=== PATIENT | male | born 1990 | race Caucasian/White ===

== ENCOUNTER 2018-08-14 21:51 | Emergency (ER) | payer MEDICARE, MEDICAID, SELFPAY ==
[2018-08-14 21:51] VITALS: BP 135/81; PULSE 86; RESP 16; TEMP 36.4; O2SAT 98; BMI 35.2
--- NOTE | 2018-08-14 21:54 | RAD_ITS ---
STUDY: X-RAY - RIGHT HAND REASON FOR EXAM: Male, 28 years old. Wrist and fifth digit pain after acute injury. TECHNIQUE: 3 view(s) of the hand. COMPARISON: None. FINDINGS: Normal radiocarpal articulation. Normal distal radioulnar joint. Normal visualized carpal bones. Normal carpal articulations Normal carpometacarpal articulation of the thumb. Normal second through fifth carpometacarpal joints. Normal metacarpi. Normal metacarpophalangeal joint of the thumb. Normal interphalangeal joint of the thumb. Normal proximal and distal phalanges of the thumb. Normal metacarpophalangeal joints of the second through fifth fingers. Normal proximal and distal interphalangeal joints of the second through fifth fingers. Normal phalanges of the second through fifth fingers. The soft tissue structures are unremarkable. RAD/Hand Min 3 Views IMPRESSION: Normal x-ray examination of the hand. Electronically Signed: Preethi Rebolledo MD at 22:15 EDT , Service support ,
--- NOTE | 2018-08-14 22:46 | ED.DEP ---
ED Disposition - Plan for ED Patient: Instructions: ED Contusion Hand Prescriptions: Naproxen [Naprosyn] 500 mg PO BID PRN #20 tablet Referrals: Mumtaz Rubalcava MD [Primary Care Provider] -
--- NOTE | 2018-08-14 22:49 | ED.VISSUMM ---
- ER Visit Summary Date of Service: 08/14/18 Chief Complaint: Right hand injury History of Present Illness: The patient is a 28 M presenting with right hand injury. Patient states this occurred on Saturday. He was playing with his son doing somersaults. He landed on his right hand. He has had persistent pain in his hand since. Tonight at work he lifted something heavy and felt a pop in his hand. He is right-handed. Denies other complaints. Physical Examination: Vitals are stable. Patient is afebrile. Alert no acute distress. HEENT exam is unremarkable. Neck is supple. Lungs are clear and equal bilaterally. Heart is regular rate and rhythm. Extremities tenderness right fourth and fifth metacarpal with ecchymosis and mild swelling. Normal pulses and cap refill. Active full range of motion. Skin is warm and dry. No focal neurologic deficit. Remainder of exam is unremarkable. Emergency Department Course and Treatment: Right hand x-ray shows no acute process. He was given a Velcro wrist splint. Advised ice and elevate. Advised to use NSAIDs for pain. Advised to follow up with primary care physician. Advised return to ED for worsening complaints. Disposition: Discharge home Impression: Right hand contusion This note was generated with [employer] dictation software. It may contain incorrect words, spelling, and punctuation that were not noted in review of the chart prior to signing ED Disposition - Plan for ED Patient: Instructions: ED Contusion Hand Prescriptions: Naproxen [Naprosyn] 500 mg PO BID PRN #20 tablet Referrals: Mumtaz Rubalcava MD [Primary Care Provider] -
[2018-08-14 23:18] VITALS: BP 141/76; PULSE 82; RESP 14; O2SAT 99
== END 2018-08-14 23:19 | disposition home or self-care (01) ==
PROVIDERS: Emergency Provider Emergency Medicine; Family Provider Family Medicine; PCP Family Medicine
DX: S60.221A Contusion of right hand, initial encounter (principal); X58.XXXA Exposure to other specified factors, initial encounter; Y93.43 Activity, gymnastics; Y92.9 Unspecified place or not applicable; Y99.9 Unspecified external cause status; Z72.0 Tobacco use; Z79.899 Other long term (current) drug therapy
CPT/HCPCS: 73130; 99283

== ENCOUNTER 2021-11-12 23:35 | Emergency (ER) | payer MEDICARE, MEDICAID, SELFPAY ==
[2021-11-12 23:36] VITALS: BP 146/93; PULSE 88; RESP 16; TEMP 36.4; O2SAT 94; BMI 38.8
[2021-11-13] MEDS: Dicyclomine 10 MG Capsule 20 MG PO (00:17)
[2021-11-13 00:31] LABS: Absolute Lymphocyte Count 3.24 X10^3/uL (0.83-4.51); Absolute Neutrophil Count 3.7 X10^3/uL (2.0-7.7); Basophil# 0.04 X10^3/uL; Basophil% 0.5 % (0-1); Eosinophil# 0.19 X10^3/uL; Eosinophils% 2.5 % (0-5); Hematocrit 45.7 % (40-54); Hemoglobin 16.2 g/dL (13.0-16.5); Lymphocyte # 3.24 X10^3/ul (0.83-4.51); Lymphocyte % 41.9 % (19-41); Mean Corp Hgb Conc 35.4 g/dL (32-36); Mean Corpuscular Hgb 30.5 pg (27.0-32.0); Mean Corpuscular Volume 85.9 fL (80-94); Mean Platelet Vol. 11.5 fl (6.2-12.0); Monocyte# 0.53 X10^3/uL; Monocyte% 6.8 % (0-10); NRBC Flagged by Analyzer 0 % (0-5); Neutrophil # 3.71 X10^3/uL (2.7-7.7); Neutrophil % 47.9 % (47-70); Platelet Count 218 K/mm3 (150-450); RBC Distribution Width CV 12.8 % (11.6-14.6); RBC Distribution Width SD 39.7 fl (35.1-43.9); Red Blood Count 5.32 M/mm3 (4.6-6.2); White Blood Count 7.7 K/mm3 (4.4-11.0)
--- NOTE | 2021-11-13 01:00 | ED.VIS.GI ---
HPI HPI - GI History of Present Illness Chief Complaint: GI Bleed Informant: patient Abdominal Pain/Flank Pain Onset: - (Years) Timing: Intermittent Quality: Aching and Sharp Location: - (Suprapubic) Current Severity: Mild Maximum Severity: Severe Worsened by: - (Just before bowel movement) Relieved by: - (After bowel movement) Diarrhea/Melena/Hematochezia GI Symptom: Positive for Diarrhea and Hematochezia; Negative for Melena Associated Symptoms Associated Symptoms: Negative for Dysuria, Frequency, Hematuria or Urgency Narrative Narrative: Patient states for several years he has been having diarrhea, intermittent rectal bleeding, suprapubic abdominal pain, and perianal/rectal pain. It has been worse for the past 2 weeks. He really has not seen anybody for it, but he has colonoscopy set up by a general surgeon in [place] but it will not happen soon and he presents here for that reason. He denies any new symptoms except for feeling a little lightheaded and malaise recently. No fevers, chills, nausea, vomiting. No history of abdominal surgery. Never had a scope before. He does not have any problems eating. [facility] Medical History GI bleed Myocardial infarct Home Medications albuterol sulfate 90 mcg/actuation aerosol inhaler (Ventolin HFA) 1 - 2 puff inhalation Q4H PRN PRN Wheezing ##1 04/16/16 [Rx Last Taken Unknown] alprazolam 0.5 mg tablet 0.5 mg PO QHS PRN PRN Anxiety 04/16/16 [History Last Taken Unknown] benzonatate 100 mg capsule 200 mg PO TID PRN PRN Cough ##20 04/16/16 [Rx Last Taken Unknown] prednisone 10 mg tablet 10 mg PO UD #33 tabs 04/16/16 [Rx Last Taken Unknown] venlafaxine 37.5 mg capsule,extended release 24 hr (Effexor XR) 37.5 mg PO DAILY 04/16/16 [History Last Taken Unknown] naproxen 500 mg tablet 500 mg PO BID PRN #20 tabs 08/14/18 [Rx Last Taken Unknown] dicyclomine 10 mg capsule 20 mg PO Q6H PRN PRN abdominal discomfort #30 CAPSULES 11/13/21 [Rx Last Taken Unknown] hydrocortisone 2.5 % topical cream with perineal applicator (Proctosol HC) 1 applic [place] QHS PRN hemorrhoids #30 grams 11/13/21 [Rx Last Taken Unknown] Allergy/AdvReac Type Severity Reaction Status Date / Time Penicillins Allergy Anaphylaxis Verified 11/12/21 23:39 Social History Smoking Status: Current every day smoker tobacco type: cigarettes ROS ROS ED Constitutional Constitutional ED: Denies chills or fever(s) Eyes Eyes: Denies change in vision or diplopia ENT ENT ED: Denies rhinorrhea or sore throat Cardiovascular Cardiovascular: Denies chest pain or palpitations Respiratory/Chest Respiratory/Chest: Denies cough or dyspnea Gastrointestinal Gastrointestinal: Reports abdominal pain, diarrhea, hematochezia, tenesmus and other Details: Rectal/anal pain ; Denies hematemesis, melena, nausea or vomiting Genitourinary Genitourinary ED: Denies dysuria or hematuria Musculoskeletal Musculoskeletal: Denies back pain or neck pain Integumentary Denies abscess or rash Neurologic Neurologic: Denies headache(s), paresthesias or weakness Psychiatric Psychiatric: Denies anxiety or suicidal thoughts EXAM Physical Exam Const Vital Signs: 11/12/21 23:36 Temperature 97.5 F L Temperature Source Temporal Pulse Rate 88 Respiratory Rate 16 Blood Pressure 146/93 H Blood Pressure Mean 110 Pulse Ox 94 Oxygen Delivery Method Room Air Positive well nourished and well developed General Appearance ED: well developed and NAD HEENT Reports moist mucous membranes normocephalic and atraumatic Eyes PERRL and EOMs intact bilaterally Neck full ROM and supple Resp normal respiratory effort and clear to auscultation bilaterally Cardio regular rate, regular rhythm and no murmurs GI non-tender and non-distended GI Narrative: Rectal: Mild diffuse tenderness, no active bleeding or blood present, no fullness or abscess, several small external hemorrhoids without prolapse or thrombosis or evidence of recent bleeding. No perianal erythema, no fissure, no fistula, no other visible abnormality. Auscultation: normoactive bowel sounds Palpation: soft Back/Spine no CVA tenderness General Back: other FROM Extremity normal to inspection General Extremety ED: Negative for edema, pulses abnormal or tenderness General Extremity: Negative for edema or pulses abnormal Neuro oriented x3, CN's II-XII intact bilaterally and no sensory deficits noted Sensorium / Orientation: awake and alert Motor Exam: strength 5/5 throughout Skin no rashes or lesions noted and no wounds MDM MDM MDM Narrative Medical decision making narrative: Labs are normal including hemoglobin of 16.2. I gave him dicyclomine, I discussed the need for colonoscopy and I do not think he needs any emergent imaging. I do not think he has a perianal or perirectal abscess. These symptoms including the pain there has been going on for years, sometimes he describes either a prolapsed or thrombosed hemorrhoid that has gone away but he does not have that right now. I am going to give him hemorrhoid cream to treat internal ones until he can follow-up as well as a prescription for dicyclomine, I discussed why I would not put him on prednisone right now until he gets a colonoscopy and I referred him to our de icer kit assembler. He is comfortable with that plan. Lab Data Attestation: I reviewed the patient's lab results. Labs: Laboratory Results - last 24 hr 11/13/21 00:10 WBC 7.7 RBC 5.32 Hgb 16.2 Hct 45.7 MCV 85.9 MCH 30.5 MCHC 35.4 RDW Std Deviation 39.7 RDW Coeff of Kylie 12.8 Plt Count 218 MPV 11.5 Immature Gran % (Auto) 0.400 Neut % (Auto) 47.9 Lymph % (Auto) 41.9 H [place] % (Auto) 6.8 Eos % (Auto) 2.5 Baso % (Auto) 0.5 Absolute Neuts (auto) 3.7 Absolute Lymphs (auto) 3.24 Nucleated RBC % 0 Discharge Plan Triage Chief Complaint: GI Bleed ED Provider: Wilfrid Erazo Dx/Rx/DC Orders Clinical Impression: Colitis, Lightheadedness, Hemorrhoids Instructions: ED Understanding Colitis Prescriptions: New hydrocortisone [Proctosol HC] 2.5 % cream with perineal applicator 1 applic MT QHS PRN (Reason: hemorrhoids) Qty: 30 0RF dicyclomine 10 mg capsule 20 mg PO Q6H PRN PRN (Reason: abdominal discomfort) Qty: 30 0RF No Action venlafaxine [Effexor XR] 37.5 MG capsule,extended release 24hr 37.5 mg PO DAILY alprazolam 0.5 MG tablet 0.5 mg PO QHS PRN PRN (Reason: Anxiety) prednisone 10 MG tablet 10 mg PO UD Qty: 33 0RF Rx Instructions: Take 4 tablets daily for 3 days, then 3 daily for 3 days, then 2 daily for 3 days, then 1 a day for 3 days then 1 QOD for 3 doses. benzonatate 100 MG capsule 200 mg PO TID PRN PRN (Reason: Cough) Qty: 20 0RF albuterol sulfate [Ventolin HFA] 1 INHALER inhaler 1 - 2 puff inhalation Q4H PRN PRN (Reason: Wheezing) Qty: 1 0RF naproxen 500 MG tablet 500 mg PO BID PRN Qty: 20 0RF Primary Care Provider: GINA AMAYA NP Referrals: GINA AMAYA NP [Other] Friend,DO Dieter [Med Staff - Active Staff] - As soon as possible (Call for appointment) Disposition Disposition: Home, Self Care
[2021-11-13 01:02] LABS: ALB/GLOB Ratio 1.1 RATIO (0.9-2.4); AST(SGOT) 14 U/L (15-37); Alanine Aminotransfer ALT/SGPT 29 U/L (16-61); Albumin, Serum 3.8 g/dL (3.2-5.0); Alkaline Phosphatase 77 U/L (45-117); Anion Gap 7 (5-15); BUN 17 mg/dL (7-18); BUN/Creat Ratio 16.5 RATIO (10-20); Calcium,Total 9.1 mg/dL (8.5-10.1); Chloride 110 mmol/L (98-107); Creatinine, Serum 1.03 mg/dL (0.70-1.30); EST Glomerular Filtration Rate 89 mL/min (>60); Est Glom Filt Rate - Afr Amer 108 mL/min (>60); Estimated Creatinine Clearance 114.06 ml/min; Globulin 3.4 g/dL (2.2-4.2); Glucose 109 mg/dL (74-106); Potassium 3.7 mmol/L (3.5-5.1); Protein, Total 7.2 g/dL (6.4-8.2); Sodium Level 143 mmol/L (136-145)
[2021-11-13 01:09] VITALS: BP 127/73; PULSE 76; RESP 15; O2SAT 96
== END 2021-11-13 01:09 | disposition home or self-care (01) ==
PROVIDERS: Emergency Provider Emergency Medicine; Visit Provider Emergency Medicine
DX: K52.9 Noninfective gastroenteritis and colitis, unspecified (principal); R42 Dizziness and giddiness; K64.9 Unspecified hemorrhoids; F17.210 Nicotine dependence, cigarettes, uncomplicated; I25.2 Old myocardial infarction
CPT/HCPCS: 80053; 85025; 99283

== ENCOUNTER 2022-01-06 09:37 | Emergency (ER) | payer MEDICARE, MEDICAID, SELFPAY ==
[2022-01-06 09:39] VITALS: BP 139/85; PULSE 92; RESP 18; TEMP 36.8; O2SAT 94; BMI 38.7
--- NOTE | 2022-01-06 10:05 | CT_ITS ---
STUDY: CT ABDOMEN AND PELVIS WITHOUT CONTRAST REASON FOR EXAM: Male, 31 years old. RLQ pain RADIATION DOSAGE (If Supplied By Facility): CTDIvol = ( 20.69 ) mGy, DLP = ( 1163.01 ) mGycm TECHNIQUE: Transaxial images were obtained from the dome of the diaphragm to the symphysis pubis without oral contrast, and without intravenous contrast. Sagittal and coronal images were reconstructed. Individualized dose optimization techniques were used for this CT. COMPARISON: None. FINDINGS: The visualized lung bases are unremarkable. The visualized portions of the heart are within normal limits. Normal liver. Normal gallbladder and extrahepatic biliary system. Normal spleen. Normal pancreas. Normal bilateral adrenal glands. Normal right kidney. Normal left kidney. Normal visualized stomach. Normal small intestine. The majority of the colon is unremarkable. However, there is evidence of inflammatory stranding around the mid sigmoid colon with associated diverticula suggesting acute diverticulitis. No perforation or abscess noted. The appendix is visualized and appears normal. Appendix is seen on coronal recon images 66-76. Normal abdominal aorta. Normal inferior vena cava. Normal retroperitoneum. Normal urinary bladder. Normal abdominal wall. Normal osseous structures. CT/Abdomen/Pelvis without Cont IMPRESSION: Acute sigmoid diverticulitis without perforation or abscess. No suspicious solid organ abnormality Normal appendix visualized No free intraperitoneal air or suspicious adenopathy Electronically Signed: Eren Newton MD at 10:44 EDT ,
[2022-01-06] MEDS: 0.9% Normal Saline 1,000 ML 1000 ML IV (10:10)
[2022-01-06] MEDS: Ondansetron 4 MG/2 ML Vial IV (10:11)
--- NOTE | 2022-01-06 10:11 | EDS_ITS ---
HPI HPI - GI History of Present Illness Chief Complaint: Abd Pain Informant: patient Narrative Narrative: Progressive lower abdominal pain since yesterday morning. Started right lower quadrant reports currently feels like glass in there. Today pain progressed to the left side. Nausea without vomiting. Last bowel movement 2 days ago. Last meal was lunch yesterday. No fevers. Urine urgency. No dysuria. No surgeries to the abdomen in the past. Allergies penicillin he reports unclear in reaction records notes anaphylaxis. No history of similar. Reports past med history of viral pericarditis with cardiomyopathy in 2014. He followed cardiology at that time states there was improvement in heart function. His director of housing Dr. Hernandez then. He is currently being established with an [facility] director of housing that he seen once. Prior similar symptoms: No PFSH PFSH Medical History GI bleed Myocardial infarct Home Medications prednisone 10 mg tablet 10 mg PO UD #33 tabs 04/16/16 [Rx Last Taken Unknown] venlafaxine 37.5 mg capsule,extended release 24 hr (Effexor XR) 37.5 mg PO DAILY 04/16/16 [History Last Taken Unknown] naproxen 500 mg tablet 500 mg PO BID PRN #20 tabs 08/14/18 [Rx Last Taken Unknown] dicyclomine 10 mg capsule 20 mg PO Q6H PRN PRN abdominal discomfort #30 CAPSULES 11/13/21 [Rx Last Taken Unknown] hydrocortisone 2.5 % topical cream with perineal applicator (Proctosol HC) 1 applic [place] QHS PRN hemorrhoids #30 grams 11/13/21 [Rx Last Taken Unknown] levofloxacin 750 mg tablet 750 mg PO DAILY #6 tabs 01/06/22 [Rx Last Taken Unknown] metronidazole 500 mg tablet 500 mg PO TID #20 tabs 01/06/22 [Rx Last Taken Unknown] ondansetron 4 mg disintegrating tablet 4 mg PO Q6H PRN nausea and vomiting #10 tabs 01/06/22 [Rx Last Taken Unknown] semaglutide 0.25 mg or 0.5 mg (2 mg/1.5 mL) subcutaneous pen injector (Ozempic) 2 mg subcut QWEEK 01/06/22 [History Last Taken Unknown] Allergy/AdvReac Type Severity Reaction Status Date / Time Penicillins Allergy Anaphylaxis Verified 01/06/22 09:38 Social History Smoking Status: Current every day smoker tobacco type: cigarettes ROS ROS ED Constitutional Constitutional ED: Denies chills, fever(s) or sweats Eyes Eyes: Denies change in vision ENT ENT ED: Denies dysphagia or sore throat Cardiovascular Cardiovascular: Denies chest pain, leg edema, palpitations or racing heartbeat Respiratory/Chest Respiratory/Chest: Denies cough, dyspnea or dyspnea on exertion Gastrointestinal Gastrointestinal: Reports abdominal pain and nausea; Denies diarrhea or vomiting Genitourinary Genitourinary ED: Reports other Details: Urine urgency ; Denies dysuria, hematuria or urinary frequency Musculoskeletal Musculoskeletal: Denies back pain, extremity pain or neck pain Integumentary Denies rash or wounds Neurologic Neurologic: Denies headache(s), paresthesias or weakness EXAM Physical Exam Const Vital Signs: 01/06/22 09:39 01/06/22 11:19 Temperature 98.2 F Temperature Source Temporal Pulse Rate 92 89 Respiratory Rate 18 16 Blood Pressure 139/85 H 135/86 H Blood Pressure Mean 103 Pulse Ox 94 98 Oxygen Delivery Method Room Air Positive well nourished and well developed General Appearance ED: well developed and NAD HEENT Reports moist mucous membranes normocephalic and atraumatic Eyes PERRL, EOMs intact bilaterally and conjunctivae normal General Eye ED: Yes normal appearance of both eyes Neck no lymphadenopathy and supple General: Negative for tenderness Chest Wall Chest: Negative for tenderness Resp normal respiratory effort and normal air movement Effort and Inspection: symmetric chest movement; Negative for respiratory distress Cardio regular rate, regular rhythm and no murmurs Peripheral Pulses: pulses 2+ throughout GI normal to inspection, nondistended, normoactive bowel sounds GI Narrative: Tender palpation right lower quadrant, more suprapubic. Negative Rovsing's. No rebound. Palpation: Negative for guarding or rebound tenderness present Back/Spine no CVA tenderness and no thoracic nor lumbar tenderness Extremity normal to inspection General Extremety ED: Negative for edema or tenderness General Extremity: Negative for edema Neuro oriented x3 and no sensory deficits noted Sensorium / Orientation: awake and alert Skin no rashes or lesions noted and no wounds MDM MDM MDM Narrative Medical decision making narrative: Patient presents with mild right lower quadrant pain however more suprapubic pain. Initial order for morphine however declined this. Labs White count 11.9 renal function 1. He is given fluids and Zofran. CT scan reviewed normal appendix however notes uncomplicated sigmoid diverticulitis. Without a surgical abdomen is given Toradol. He is started on Flagyl and Levaquin. Penicillin has noted anaphylaxis therefore avoid cephalosporins. Discussed he will avoid alcohol products. Discussed monitoring for tendon pain with Levaquin and avoiding strenuous activities if he feels this. He reported he has a scheduled colonoscopy in January 16 in 9 days through [facility] due to previous rectal bleeding. None currently. I discussed to call them to reschedule this due to his acute diverticulitis flare. He will use Tylenol or Motrin as needed. Return precaution discussed. All questions were answered. Of note, prior to discharge as well as placing orders, new orders came to the patient which was not ran are given. He was never given any morphine or Dilaudid for pain as he did not require this. Lab Data Attestation: I reviewed the patient's lab results. Labs: Laboratory Results - last 24 hr 01/06/22 01/06/22 09:55 09:55 WBC 11.9 H RBC 5.31 Hgb 15.2 Hct 45.8 MCV 86.3 MCH 28.6 MCHC 33.2 RDW Std Deviation 40.7 RDW Coeff of Kylie 13.2 Plt Count 223 MPV 11.5 Immature Gran % (Auto) 0.500 Neut % (Auto) 73.1 H Lymph % (Auto) 16.1 L [place] % (Auto) 9.2 Eos % (Auto) 0.8 Baso % (Auto) 0.3 Absolute Neuts (auto) 8.7 H Absolute Lymphs (auto) 1.91 Nucleated RBC % 0 Sodium 139 Potassium 4.1 Chloride 107 Carbon Dioxide 29.0 Anion Gap 3 L BUN 15 Creatinine 1.00 Estim Creat Clear Calc 117.48 Est GFR (MDRD) Af Amer 112 Est GFR (MDRD) Non-Af 93 BUN/Creatinine Ratio 15.0 Glucose 115 H Calcium 8.9 Radiography Diagnostic Testing: Clinical Impression(s) from Imaging Studies Abdomen/Pelvis CT 01/06/22 10:05 IMPRESSION: Acute sigmoid diverticulitis without perforation or abscess. No suspicious solid organ abnormality Normal appendix visualized No free intraperitoneal air or suspicious adenopathy Electronically Signed: Eren Newton MD at 10:44 EDT , Discharge Plan Triage Chief Complaint: Abd Pain ED Provider: Bradley Keita Dx/Rx/DC Orders Clinical Impression: Sigmoid diverticulitis, Lower abdominal pain, Nausea Instructions: ED Diverticulitis Prescriptions: New levofloxacin 750 mg tablet 750 mg PO DAILY Qty: 6 0RF Rx Instructions: next dose 01/07/22 metronidazole 500 mg tablet 500 mg PO TID Qty: 20 0RF ondansetron 4 mg tablet,disintegrating 4 mg PO Q6H PRN (Reason: nausea and vomiting) Qty: 10 0RF No Action venlafaxine [Effexor XR] 37.5 MG capsule,extended release 24hr 37.5 mg PO DAILY prednisone 10 MG tablet 10 mg PO UD Qty: 33 0RF Rx Instructions: Take 4 tablets daily for 3 days, then 3 daily for 3 days, then 2 daily for 3 days, then 1 a day for 3 days then 1 QOD for 3 doses. naproxen 500 MG tablet 500 mg PO BID PRN Qty: 20 0RF hydrocortisone [Proctosol HC] 2.5 % cream with perineal applicator 1 applic [place] QHS PRN (Reason: hemorrhoids) Qty: 30 0RF dicyclomine 10 mg capsule 20 mg PO Q6H PRN PRN (Reason: abdominal discomfort) Qty: 30 0RF Ozempic 0.25 mg or 0.5 mg(2 mg/1.5 mL) pen injector 2 mg SUBCUT QWEEK Primary Care Provider: GINA AMAYA Referrals: [facility] Doctor,Out of [Non-Staff] - Activity Restrictions/Additional Instructions: Acute uncomplicated sigmoid diverticulitis. Take antibiotic as prescribed. Avoid alcohol products while taking Flagyl. Zofran as needed continue Tylenol ibuprofen for pain. Any significant worsening symptoms fevers return for reevaluation. Call your GI team reschedule your colonoscopy that is in 9 days due to diverticulitis. Disposition Disposition: Home, Self Care
[2022-01-06 10:15] LABS: Absolute Lymphocyte Count 1.91 X10^3/uL (0.83-4.51); Absolute Neutrophil Count 8.7 X10^3/uL (2.0-7.7); Basophil# 0.04 X10^3/uL; Basophil% 0.3 % (0-1); Eosinophils% 0.8 % (0-5); Hematocrit 45.8 % (40-54); Hemoglobin 15.2 g/dL (13.0-16.5); Lymphocyte # 1.91 X10^3/ul (0.83-4.51); Lymphocyte % 16.1 % (19-41); Mean Corp Hgb Conc 33.2 g/dL (32-36); Mean Corpuscular Hgb 28.6 pg (27.0-32.0); Mean Corpuscular Volume 86.3 fL (80-94); Mean Platelet Vol. 11.5 fl (6.2-12.0); Monocyte# 1.09 X10^3/uL; Monocyte% 9.2 % (0-10); NRBC Flagged by Analyzer 0 % (0-5); Neutrophil # 8.67 X10^3/uL (2.7-7.7); Neutrophil % 73.1 % (47-70); Platelet Count 223 K/mm3 (150-450); RBC Distribution Width CV 13.2 % (11.6-14.6); RBC Distribution Width SD 40.7 fl (35.1-43.9); Red Blood Count 5.31 M/mm3 (4.6-6.2); White Blood Count 11.9 K/mm3 (4.4-11.0)
[2022-01-06 10:28] LABS: Anion Gap 3 (5-15); BUN 15 mg/dL (7-18); Calcium,Total 8.9 mg/dL (8.5-10.1); Chloride 107 mmol/L (98-107); EST Glomerular Filtration Rate 93 mL/min (>60); Est Glom Filt Rate - Afr Amer 112 mL/min (>60); Estimated Creatinine Clearance 117.48 ml/min; Glucose 115 mg/dL (74-106); Potassium 4.1 mmol/L (3.5-5.1); Sodium Level 139 mmol/L (136-145)
[2022-01-06] MEDS: levoFLOXacin 750 MG Tablet PO (11:12)
[2022-01-06] MEDS: metroNIDAZOLE 500 MG Tablet PO (11:12)
[2022-01-06] MEDS: Ketorolac 15 MG/ML Vial IV (11:12)
[2022-01-06 11:19] VITALS: BP 135/86; PULSE 89; RESP 16; O2SAT 98
== END 2022-01-06 11:20 | disposition home or self-care (01) ==
PROVIDERS: Emergency Provider Emergency Medicine; Visit Provider Emergency Medicine
DX: K57.32 Diverticulitis of large intestine without perforation or abscess without bleeding (principal); F17.210 Nicotine dependence, cigarettes, uncomplicated
CPT/HCPCS: 74176; 80048; 85025; 96361; 96374; 96375; 99284; J7030; A4216; J2405

== ENCOUNTER 2022-05-31 10:29 | Emergency (ER) | payer MEDICARE, MEDICAID, SELFPAY ==
[2022-05-31 10:30] VITALS: BP 149/86; PULSE 95; RESP 18; TEMP 36.6; O2SAT 96; BMI 38.6
--- NOTE | 2022-05-31 10:56 | EKG12_ITS ---
Test Reason : DIZZINESS Blood Pressure : / mmHG Vent. Rate : 078 BPM Atrial Rate : 078 BPM P-R Int : 152 ms QRS Dur : 106 ms QT Int : 360 ms P-R-T Axes : 014 012 030 degrees QTc Int : 410 ms Normal sinus rhythm with sinus arrhythmia Normal ECG Confirmed by DOUG KHALIL, TANVIR ([id number]), editor farm journal RICARDO AYERS ([id number]) on 06/04/2022 12:12:42 P M Referred By: PL Confirmed By:ANGELITO CAMACHO MD
[2022-05-31 11:09] LABS: Absolute Lymphocyte Count 1.83 X10^3/uL (0.83-4.51); Absolute Neutrophil Count 4.1 X10^3/uL (2.0-7.7); Basophil# 0.03 X10^3/uL; Basophil% 0.5 % (0-1); Eosinophil# 0.09 X10^3/uL; Eosinophils% 1.4 % (0-5); Hematocrit 45.6 % (40-54); Hemoglobin 15.2 g/dL (13.0-16.5); Lymphocyte # 1.83 X10^3/ul (0.83-4.51); Lymphocyte % 28.7 % (19-41); Mean Corp Hgb Conc 33.3 g/dL (32-36); Mean Corpuscular Hgb 28.4 pg (27.0-32.0); Mean Corpuscular Volume 85.2 fL (80-94); Mean Platelet Vol. 11.7 fl (6.2-12.0); Monocyte# 0.32 X10^3/uL; NRBC Flagged by Analyzer 0 % (0-5); Neutrophil # 4.06 X10^3/uL (2.7-7.7); Neutrophil % 63.8 % (47-70); Platelet Count 212 K/mm3 (150-450); RBC Distribution Width CV 12.8 % (11.6-14.6); RBC Distribution Width SD 39.4 fl (35.1-43.9); Red Blood Count 5.35 M/mm3 (4.6-6.2); White Blood Count 6.4 K/mm3 (4.4-11.0)
--- NOTE | 2022-05-31 11:10 | EX.ED.DYSGE1 ---
HPI History of Present Illness Chief Complaint: Dizziness Informant: patient Narrative Narrative: Patient states he has not felt well for about a month. He states a month ago he started with a sore throat and some cough and myalgias. The coughing is better but occasionally coughs at night. No noted wheezing. The sore throat is gone. Nasal drainage is gone. Those really started go away about a week ago. Now the last week he has developed some nausea. The last 4 days he has had diarrhea and some episodes of nausea and vomiting. His last vomiting episode was couple days ago but he still has nausea. He does get some blood in the stools but this has been going on for many months. He was seen here for that. He had an appointment with gastroenterology. 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 He has not made an appointment to see cardiology. Patient was on metoprolol for about a year after that cardiomyopathy event. But they took him off and he has had no symptoms since. He does complain of a little soreness in the lower sternum and epigastric area. No back pain. He is not short of breath. Again he only coughs a little bit occasionally at night now. Overall he feels tired from being ill for about a month. [facility] Medical History GI bleed Myocardial infarct Home Medications semaglutide 0.25 mg or 0.5 mg (2 mg/1.5 mL) subcutaneous pen injector (Ozempic) 2 mg subcut QWEEK 01/06/22 [History Last Taken Unknown] ondansetron 4 mg disintegrating tablet 4 mg PO Q8H PRN PRN Nausea #10 tabs 05/31/22 [Rx Last Taken Unknown] Allergy/AdvReac Type Severity Reaction Status Date / Time Penicillins Allergy Anaphylaxis Verified 05/31/22 10:32 Social History Smoking Status: Current every day smoker tobacco type: cigarettes ROS ROS ED Constitutional Constitutional ED: Denies chills, fever(s) or weight loss Eyes Eyes: Denies change in vision ENT ENT ED: Reports rhinorrhea and sore throat Cardiovascular Cardiovascular: Reports chest pain; Denies palpitations or racing heartbeat Respiratory/Chest Respiratory/Chest: Reports cough; Denies dyspnea or sputum Gastrointestinal Gastrointestinal: Reports abdominal pain, diarrhea, nausea and vomiting Genitourinary Genitourinary ED: Denies hematuria Musculoskeletal Musculoskeletal: Denies myalgias Integumentary Denies rash Neurologic Neurologic: Denies headache(s) Endocrine Endocrinology: Denies polydipsia or polyuria Hematologic/Lymphatic Hematologic/Lymphatic: Denies easy bleeding or easy bruising Allergic/Immunologic Allergic/Immunologic ED: Denies urticaria EXAM Physical Exam Narrative Exam Narrative: Patient is awake and alert. Despite his history, he looks very nontoxic and in bed he looks comfortable. HEENT does show some dry mucous membranes but no exudate or erythema. Neck shows no JVD or meningismus. Lungs are clear bilaterally. Coughing does not occur with deep breaths. No wheezing. His saturations are normal at 96 to 98% on room air showing no hypoxia. Heart is regular with a rate about 80. I hear no murmur. No muffled or distant tones. Peripheral pulses are equal x4. Abdomen soft. Minimal epigastric tenderness but no rebound guarding or mass. Bowel sounds are normal to slightly increased. shows no CVA or suprapubic tenderness Extremities show no edema, tenderness, cords or asymmetry Const Vital Signs: 05/31/22 10:30 05/31/22 10:45 05/31/22 11:31 Temperature 98 F Temperature Source Temporal Pulse Rate 95 78 Respiratory Rate 18 19 H Respiratory Effort Normal Non-Labored Blood Pressure 149/86 H Blood Pressure Mean 107 Pulse Ox 96 Oxygen Delivery Method Room Air Room Air 05/31/22 12:27 Temperature Temperature Source Pulse Rate 71 Respiratory Rate 14 Respiratory Effort Blood Pressure 117/68 Blood Pressure Mean 84 Pulse Ox 97 Oxygen Delivery Method Room Air MDM MDM MDM Narrative Medical decision making narrative: Of note, during this 1 dictation, I was interrupted for 4 separate phone calls about other incoming patients. There may be details that were inadvertently left off because of these intervening actions in the time. Patient's blood work showed normal CBC including white count hemoglobin and lites electrolytes were normal other than minimal elevation of chloride which is nonspecific. Glucose was 117. Liver function tests were normal. My independent interpretation of the patient's single AP chest x-ray shows no acute process. There is no indication of cardiomegaly. No infiltrate. Final reading by radiology is similar. Patient's been having about 3 to 4 weeks of symptoms. Most of his respiratory symptoms are gone. He has now been having soreness including epigastric and lower chest pain for about 3 days along with nausea vomiting and diarrhea. No sign of him being significantly dehydrated. He does feel better with IV fluids. Just a hint of nausea so I will give him some Zofran here and to go. I think he is safe for discharge. I do not think he needs a delta troponin since he has been having days of symptoms and I think most of these are likely GI related. We did discuss reasons to return. PERC rule is also negative. Lab Data Attestation: I reviewed the patient's lab results. Labs: Laboratory Results - last 24 hr 05/31/22 05/31/22 10:50 10:50 WBC 6.4 RBC 5.35 Hgb 15.2 Hct 45.6 MCV 85.2 MCH 28.4 MCHC 33.3 RDW Std Deviation 39.4 RDW Coeff of Kylie 12.8 Plt Count 212 MPV 11.7 Immature Gran % (Auto) 0.600 Neut % (Auto) 63.8 Lymph % (Auto) 28.7 [place] % (Auto) 5.0 Eos % (Auto) 1.4 Baso % (Auto) 0.5 Absolute Neuts (auto) 4.1 Absolute Lymphs (auto) 1.83 Nucleated RBC % 0 Sodium 143 Potassium 3.7 Chloride 110 H Carbon Dioxide 25.0 Anion Gap 8 BUN 14 Creatinine 0.91 Estim Creat Clear Calc 129.10 Est GFR (MDRD) Af Amer 125 Est GFR (MDRD) Non-Af 103 BUN/Creatinine Ratio 15.4 Glucose 117 H Calcium 8.6 Total Bilirubin 0.50 AST 14 L ALT 40 Alkaline Phosphatase 64 Troponin I High Sens 5 Total Protein 7.4 Albumin 3.7 Globulin 3.7 Albumin/Globulin Ratio 1.0 Radiography Diagnostic Testing: Clinical Impression(s) from Imaging Studies Chest X-Ray 05/31/22 11:25 IMPRESSION: Normal x-ray examination of the chest. Electronically Signed: Eren Newton MD at 11:39 EDT , EKG Initial EKG: Comments: My independent interpretation of the patient's EKG done for lower chest pain and generalized malaise is a normal sinus rhythm with slight sinus arrhythmia which is normal at his age. Rate is controlled at 78. Normal TX interval, QRS duration and QTc. There is no acute ST elevation or depression consistent with infarct or ischemia. Overall, the EKG is similar to 16 April 2016. Discharge Plan Triage Chief Complaint: Dizziness ED Provider: Jono Reyes Dx/Rx/DC Orders Clinical Impression: Nausea vomiting and diarrhea, Acute epigastric pain, Chest pain Instructions: ED Vomiting and Diarrhea ... Prescriptions: New ondansetron [ondansetron] 4 mg tablet,disintegrating 4 mg PO Q8H PRN PRN (Reason: Nausea) Qty: 10 0RF No Action Ozempic 0.25 mg or 0.5 mg(2 mg/1.5 mL) pen injector 2 mg SUBCUT QWEEK Primary Care Provider: Care Physician,No Primary Referrals: Lurdes St MD [Med Staff - [employer]] - 3-5 Days if not improving Hannah Sy MD [Med Staff - Active Staff] - As soon as possible (Call to make an appointment to get clearance for gastroenterology for further evaluation.) Care Physician,No Primary [Primary Care Provider] - Disposition Disposition: Home, Self Care
[2022-05-31] MEDS: 0.9% Normal Saline 1,000 ML 1000 ML IV (11:23)
--- NOTE | 2022-05-31 11:25 | RAD_ITS ---
STUDY: X-RAY CHEST REASON FOR EXAM: Male, 31 years old. Fever and cough TECHNIQUE: Single AP portable view of the chest. COMPARISON: 04/16/2016 FINDINGS: EKG leads overlie the chest The lungs are clear and expanded. There is no demonstrated pleural abnormality. Normal size heart. Normal mediastinum and nito. Normal visualized pulmonary arteries. Normal visualized aortic arch and descending thoracic aorta. Normal visualized thoracic spine. Normal visualized ribs, clavicles, and shoulders. There is no demonstrated abnormality of the visualized soft tissue structures of the upper abdomen. RAD/Chest 1 View (Portable) IMPRESSION: Normal x-ray examination of the chest. Electronically Signed: Eren Newton MD at 11:39 EDT ,
[2022-05-31 11:31] VITALS: PULSE 78; RESP 19
[2022-05-31 11:32] LABS: AST(SGOT) 14 U/L (15-37); Alanine Aminotransfer ALT/SGPT 40 U/L (16-61); Albumin, Serum 3.7 g/dL (3.2-5.0); Alkaline Phosphatase 64 U/L (45-117); Anion Gap 8 (5-15); BUN 14 mg/dL (7-18); BUN/Creat Ratio 15.4 RATIO (10-20); Calcium,Total 8.6 mg/dL (8.5-10.1); Chloride 110 mmol/L (98-107); Creatinine, Serum 0.91 mg/dL (0.70-1.30); EST Glomerular Filtration Rate 103 mL/min (>60); Est Glom Filt Rate - Afr Amer 125 mL/min (>60); Globulin 3.7 g/dL (2.2-4.2); Glucose 117 mg/dL (74-106); Potassium 3.7 mmol/L (3.5-5.1); Protein, Total 7.4 g/dL (6.4-8.2); Sodium Level 143 mmol/L (136-145); Troponin-I HS 5 pg/mL (3.0-78.0)
[2022-05-31 12:27] VITALS: BP 117/68; PULSE 71; RESP 14; O2SAT 97
== END 2022-05-31 13:11 | disposition home or self-care (01) ==
PROVIDERS: Emergency Provider Emergency Medicine; Visit Provider Emergency Medicine
DX: R11.2 Nausea with vomiting, unspecified (principal); R19.7 Diarrhea, unspecified; R10.13 Epigastric pain; R07.9 Chest pain, unspecified; F17.210 Nicotine dependence, cigarettes, uncomplicated; I25.2 Old myocardial infarction
CPT/HCPCS: 71045; 80053; 84484; 85025; 93005; 96360; 99284; J7030; A4216

== ENCOUNTER 2022-11-20 16:21 | Emergency (ER) | payer MEDICARE, MEDICAID, SELFPAY ==
[2022-11-20 16:22] VITALS: BP 124/94; BP 153/98; PULSE 105; PULSE 92; RESP 16; RESP 18; TEMP 35.5; O2SAT 94; O2SAT 98; BMI 40.1
--- NOTE | 2022-11-20 17:05 | CT_ITS ---
INDICATION: Abdominal pain for 2 weeks EXAMINATION: CT ABDOMEN AND PELVIS WITHOUT CONTRAST - CT Abdomen And Pelvis W/O Contrast Injection TECHNIQUE: Helically acquired images were obtained of the abdomen and pelvis without oral or IV contrast. A radiation dose optimization technique was used for this scan. IV Contrast dosage and agent: None. Oral contrast: None. COMPARISON: 01/06/2022 FINDINGS: LOWER CHEST: Lung bases are clear. No cardiomegaly or pericardial effusion. LIVER: Hepatomegaly. No focal mass. GALLBLADDER AND BILIARY TREE: No calcified gallstones. No gallbladder distension or wall edema. No intra- or extrahepatic biliary ductal dilation. PANCREAS: No focal cystic or solid mass. SPLEEN: Splenomegaly. ADRENAL GLANDS: No nodules. KIDNEYS AND URETERS: No nephrolithiasis or hydronephrosis. PERITONEUM: No ascites or free air. BOWEL: Normal appendix. No stomach or bowel distension. Colonic diverticulosis with segment of proximal sigmoid colonic wall thickening and adjacent inflammatory fat stranding. LYMPH NODES: No enlarged mesenteric or retroperitoneal lymph nodes. VESSELS: Aorta is non-dilated. URINARY BLADDER: Unremarkable. REPRODUCTIVE ORGANS: No pelvic masses. ABDOMINAL WALL: Small fat-containing umbilical hernia. BONES: Unremarkable. CT/Abdomen/Pelvis without Cont IMPRESSION: Acute sigmoid diverticulitis. No perforation or pelvic abscess. Hepatosplenomegaly. Electronically Signed: Javier Otto MD at 19:04 EDT ,
--- NOTE | 2022-11-20 17:06 | EX.ED.DYSGE1 ---
HPI History of Present Illness Chief Complaint: Abd Pain Narrative Narrative: Patient presents with left lower abdominal pain for about a week. He has had this in the past although he had no diagnosis. No fevers or chills. He does have some sweats. He denies any flank pain. No urinary symptoms. No diarrhea or constipation. He is denying any nausea or vomiting. [facility] Medical History (Updated 11/20/22 @ 19:[address] Chin Rubin MD) GI bleed Hypertension Myocardial infarct Pericarditis Home Medications semaglutide 0.25 mg or 0.5 mg (2 mg/1.5 mL) subcutaneous pen injector (Ozempic) 2 mg subcut QWEEK 01/06/22 [History Last Taken Unknown] ondansetron 4 mg disintegrating tablet 4 mg PO Q8H PRN PRN Nausea #10 tabs 05/31/22 [Rx Last Taken Unknown] cefdinir 300 mg capsule 300 mg PO BID #20 caps 11/20/22 [Rx Last Taken Unknown] metronidazole 500 mg tablet 500 mg PO Q8H #21 tabs 11/20/22 [Rx Last Taken Unknown] Allergy/AdvReac Type Severity Reaction Status Date / Time Penicillins Allergy Anaphylaxis Verified 11/20/22 16:24 Social History Smoking Status: Current every day smoker tobacco type: cigarettes ROS ROS ED ROS Narrative Past medical history: Reviewed Medications: Reviewed Social history: Noncontributory Review of systems: All systems negative except as indicated General: No fever Eyes: No visual changes ENT: No upper airway congestion, normal voice Neck: No neck pain Cardiovascular: No chest pain Respiratory: No shortness of breath or cough Gastrointestinal: Abdominal pain as in HPI Genitourinary: No dysuria Musculoskeletal: Denies myalgias no difficulty with ambulation Skin: No rash Neurological: No memory loss, confusion or any focal weakness EXAM Physical Exam Narrative Exam Narrative: Physical exam General: Patient appears relatively comfortable Head: Normocephalic, Atraumatic Eyes: Conjunctiva not pale ENT: Moist mucous membranes Neck: Supple, Nontender, No lymphadenopathy Cardiovascular: Regular rate, Regular rhythm Respiratory: No distress, CTA bilaterally Abdomen: Soft, left lower quadrant abdominal pain without any guarding or rebound no right-sided abdominal pain. No groin tenderness. No CVA tenderness. Back: Nontender, Normal Inspection. Negative for: CVA tenderness Extremities: Nontender, No edema Skin: Normal color, No rash Neurological: Alert, Normal Strength, Normal Sensation Psychological: Normal affect Const Vital Signs: 11/20/22 16:22 11/20/22 16:22 11/20/22 18:12 Temperature 96 F L Temperature Source Temporal Pulse Rate 105 H 92 88 Respiratory Rate 18 16 17 Blood Pressure 153/98 H 124/94 H 135/88 H Blood Pressure Mean 116 104 103 Pulse Ox 98 94 92 Oxygen Delivery Method Room Air Room Air Room Air MDM MDM MDM Narrative Medical decision making narrative: Based on the patient's symptoms I was worried about UTI, colitis, diverticulitis, kidney stone. Patient is found to have diverticulitis. It is uncomplicated. Therefore patient does not meet criteria for admission. We will treat with antibiotics. Otherwise patient does not want any analgesia at this time. I educated him about diverticulitis and I will discharge him in stable condition. I talked to the also giving some of the information apparently has been eating quite a few strawberries recently.: This could or could not because inflammation of the diverticulum Lab Data Labs: Laboratory Results - last 24 hr 11/20/22 17:25 WBC 9.6 RBC 4.68 Hgb 13.2 Hct 39.9 L MCV 85.3 MCH 28.2 MCHC 33.1 RDW Std Deviation 40.0 RDW Coeff of Kylie 12.9 Plt Count 242 MPV 11.1 Immature Gran % (Auto) 0.400 Neut % (Auto) 69.9 Lymph % (Auto) 21.4 [place] % (Auto) 6.7 Eos % (Auto) 1.4 Baso % (Auto) 0.2 Absolute Neuts (auto) 6.7 Absolute Lymphs (auto) 2.06 Nucleated RBC % 0 Sodium 139 Potassium 3.6 Chloride 108 H Carbon Dioxide 25.0 Anion Gap 6 BUN 16 Creatinine 0.85 Estim Creat Clear Calc 136.94 Est GFR (MDRD) Af Amer 134 Est GFR (MDRD) Non-Af 111 BUN/Creatinine Ratio 18.8 Glucose 97 Calcium 8.6 Total Bilirubin 0.20 AST 11 L ALT 29 Alkaline Phosphatase 71 Total Protein 7.4 Albumin 3.5 Globulin 3.9 Albumin/Globulin Ratio 0.9 Lipase 19 Urine Color Yellow Urine Clarity Clear Urine pH 6.0 Ur Specific [place] 1.020 Urine Protein Negative Urine Glucose (UA) Normal Urine Ketones Negative Urine Occult Blood Negative Urine Nitrite Negative Urine Bilirubin Negative Urine Urobilinogen Normal Ur Leukocyte Esterase Negative Urine RBC 0 SEEN Urine WBC 0 SEEN Ur Squamous Epith Cells 0 SEEN Urine Bacteria 0 SEEN Urine Mucus 0 SEEN Radiography Diagnostic Testing: Clinical Impression(s) from Imaging Studies Abdomen/Pelvis CT 11/20/22 17:05 IMPRESSION: Acute sigmoid diverticulitis. No perforation or pelvic abscess. Hepatosplenomegaly. Electronically Signed: Javier Otto MD at 19:04 EDT , Discharge Plan Triage Chief Complaint: Abd Pain ED Provider: Chin Rubin Dx/Rx/DC Orders Clinical Impression: Diverticulitis, Abdominal pain Instructions: Diverticulitis Dc Prescriptions: New cefdinir 300 mg capsule 300 mg PO BID Qty: 20 0RF metronidazole 500 mg tablet 500 mg PO Q8H Qty: 21 0RF No Action Ozempic 0.25 mg or 0.5 mg(2 mg/1.5 mL) pen injector 2 mg SUBCUT QWEEK ondansetron [ondansetron] 4 mg tablet,disintegrating 4 mg PO Q8H PRN PRN (Reason: Nausea) Qty: 10 0RF Primary Care Provider: Lydia Galo Referrals: NOT,DEFINED [Non-Staff] - Disposition Disposition: Home, Self Care
[2022-11-20 18:02] LABS: Bacteria 0 SEEN /hpf (None Seen); Mucous, Urine 0 SEEN /hpf (<or=2+); Red Blood Cells-Urine 0 SEEN /hpf (0-5); Squamous Epithelial Cells - UA 0 SEEN /hpf (0-5); White Blood Cells 0 SEEN /hpf (0-5)
[2022-11-20 18:11] LABS: Absolute Lymphocyte Count 2.06 X10^3/uL (0.83-4.51); Absolute Neutrophil Count 6.7 X10^3/uL (2.0-7.7); Basophil# 0.02 X10^3/uL; Basophil% 0.2 % (0-1); Eosinophil# 0.13 X10^3/uL; Eosinophils% 1.4 % (0-5); Hematocrit 39.9 % (40-54); Hemoglobin 13.2 g/dL (13.0-16.5); Lymphocyte # 2.06 X10^3/ul (0.83-4.51); Lymphocyte % 21.4 % (19-41); Mean Corp Hgb Conc 33.1 g/dL (32-36); Mean Corpuscular Hgb 28.2 pg (27.0-32.0); Mean Corpuscular Volume 85.3 fL (80-94); Mean Platelet Vol. 11.1 fl (6.2-12.0); Monocyte# 0.64 X10^3/uL; Monocyte% 6.7 % (0-10); NRBC Flagged by Analyzer 0 % (0-5); Neutrophil # 6.72 X10^3/uL (2.7-7.7); Neutrophil % 69.9 % (47-70); Platelet Count 242 K/mm3 (150-450); RBC Distribution Width CV 12.9 % (11.6-14.6); Red Blood Count 4.68 M/mm3 (4.6-6.2); White Blood Count 9.6 K/mm3 (4.4-11.0)
[2022-11-20 18:12] VITALS: BP 135/88; PULSE 88; RESP 17; O2SAT 92
[2022-11-20 18:33] LABS: Color, Urine Yellow (Yellow); Glucose, Dipstick Normal (Normal); Ketone-Dipstick Negative (Negative); Leukocyte Esterase-Dipstick Negative /ul (Negative); Nitrite-Dipstick Negative (Negative); Occult Blood-Urine Negative /ul (Negative); Protein-Dipstick Negative (Negative); Urine Bilirubin Dipstick Negative (Negative); Urine Clarity Clear (Clear); Urine Urobilinogen Normal (Normal)
[2022-11-20 18:47] LABS: ALB/GLOB Ratio 0.9 RATIO (0.9-2.4); AST(SGOT) 11 U/L (15-37); Alanine Aminotransfer ALT/SGPT 29 U/L (16-61); Albumin, Serum 3.5 g/dL (3.2-5.0); Alkaline Phosphatase 71 U/L (45-117); Anion Gap 6 (5-15); BUN 16 mg/dL (7-18); BUN/Creat Ratio 18.8 RATIO (10-20); Calcium,Total 8.6 mg/dL (8.5-10.1); Chloride 108 mmol/L (98-107); Creatinine, Serum 0.85 mg/dL (0.70-1.30); EST Glomerular Filtration Rate 111 mL/min (>60); Est Glom Filt Rate - Afr Amer 134 mL/min (>60); Estimated Creatinine Clearance 136.94 ml/min; Globulin 3.9 g/dL (2.2-4.2); Glucose 97 mg/dL (74-106); Lipase 19 U/L (13-75); Potassium 3.6 mmol/L (3.5-5.1); Protein, Total 7.4 g/dL (6.4-8.2); Sodium Level 139 mmol/L (136-145)
[2022-11-20 19:35] VITALS: BP 145/99; PULSE 91; RESP 95; O2SAT 96
== END 2022-11-20 19:40 | disposition home or self-care (01) ==
PROVIDERS: Emergency Provider Emergency Medicine; Visit Provider Emergency Medicine
DX: K57.32 Diverticulitis of large intestine without perforation or abscess without bleeding (principal); R10.32 Left lower quadrant pain; F17.210 Nicotine dependence, cigarettes, uncomplicated; I25.2 Old myocardial infarction
CPT/HCPCS: 74176; 80053; 81001; 83690; 85025; 99283; Q9967; A4216

== ENCOUNTER 2023-03-07 21:31 | Emergency (ER) | payer MEDICARE, MEDICAID, SELFPAY ==
[2023-03-07 21:32] VITALS: BP 156/90; PULSE 81; RESP 16; TEMP 36.6; O2SAT 98; BMI 38.5
--- NOTE | 2023-03-07 23:12 | ED.VIS.LOWEX ---
HPI History of Present Illness Chief Complaint: Wound Narrative Narrative: 32-year-old male presenting with chronic paronychia of the right great toe. He states this started in August. He states that he did not get seen for until November here at [facility]. He was put on antibiotics at that time and never followed up with anybody. 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 He is unable to come out of his boot. He states he has from time to time soaked his foot in Epsom salts but he does not soak it religiously. He is not been on antibiotics recently. No systemic signs or symptoms. Patient states that he did cut his own toenail out of the toe and drained it previously and is simply not healing. Patient states that he is not diabetic. PFSH [facility] Medical History GI bleed Hypertension Myocardial infarct Pericarditis Home Medications semaglutide 0.25 mg or 0.5 mg (2 mg/1.5 mL) subcutaneous pen injector (Ozempic) 2 mg subcut QWEEK 01/06/22 [History Last Taken Unknown] ondansetron 4 mg disintegrating tablet 4 mg PO Q8H PRN PRN Nausea #10 tabs 05/31/22 [Rx Last Taken Unknown] cefdinir 300 mg capsule 300 mg PO BID #20 caps 11/20/22 [Rx Last Taken Unknown] metronidazole 500 mg tablet 500 mg PO Q8H #21 tabs 11/20/22 [Rx Last Taken Unknown] cephalexin 500 mg capsule 500 mg PO Q12 #14 CAPSULES 03/07/23 [Rx Last Taken Unknown] sulfamethoxazole 800 mg-trimethoprim 160 mg tablet (Bactrim DS) 1 tab PO BID #20 tabs 03/07/23 [Rx Last Taken Unknown] Allergy/AdvReac Type Severity Reaction Status Date / Time Penicillins Allergy Anaphylaxis Verified 03/07/23 21:35 Social History Smoking Status: Former smoker ROS ROS ED Constitutional Constitutional ED: Denies chills, fever(s) or sweats Eyes Eyes: Denies blurry vision or change in vision ENT ENT ED: Denies ear pain or sore throat Cardiovascular Cardiovascular: Denies chest pain, palpitations or racing heartbeat Respiratory/Chest Respiratory/Chest: Denies cough, dyspnea or sputum Gastrointestinal Gastrointestinal: Denies abdominal pain, constipation, diarrhea, nausea or vomiting Genitourinary Genitourinary ED: Denies dysuria, hematuria or urinary frequency Musculoskeletal Musculoskeletal: Denies arthralgias, myalgias or neck pain Integumentary Reports other Details: Right great toe paronychia ; Denies abscess, Abrasions or rash Neurologic Neurologic: Denies headache(s), paresthesias or weakness Psychiatric Psychiatric: Denies anxiety, depression, suicidal ideation or suicidal thoughts Endocrine Endocrinology: Denies polydipsia or polyuria EXAM Physical Exam Const Vital Signs: 03/07/23 21:32 Temperature 97.9 F Temperature Source Temporal Pulse Rate 81 Respiratory Rate 16 Blood Pressure 156/90 H Blood Pressure Mean 112 Pulse Ox 98 Oxygen Delivery Method Room Air Positive well nourished HEENT Reports moist mucous membranes normocephalic and atraumatic Resp normal respiratory effort and no retractions Cardio regular rate and regular rhythm Extremity normal to inspection Neuro oriented x3 and CN's II-XII intact bilaterally Sensorium / Orientation: alert Psych mental status grossly normal Skin Skin Narrative: There is a paronychia noted to the right great toe. The nail on the medial aspect has been removed. There appears to be no nail into the medial aspect of the toe or the tissue. There is no drainage. There is erythema and edema to the medial aspect of the right great toe. There is no lymphangitic streaking. MDM MDM MDM Narrative Medical decision making narrative: Patient presents with chronic paronychia since August in the right great toe. He is already trimmed this back himself. The nail appears to be chronically inflamed and there is no fluctuance. There is nothing to drain here. I counseled the patient at length that he needed to do foot soaks for this. He states that he is unable to do them as much as possible because he works 12-hour days and he works in a steel toe boot. I did counselor education professor him that he is going to have to find a way to keep his foot strip cleaner and maybe soak his foot before and after work and change his shoes and socks midway through. He is amenable to this. I also counseled him that he is going to need follow-up podiatry because this wound is not healing and he states that he has difficulty do that because he works 6-7 days a week. I counseled him he is going to need to make an appointment because this has been going on since August and now is a chronic issue which needs to be addressed by a ecmo specialist. Acknowledged understanding. He was given referral to Dr. Ngo. He started on antibiotics here in the ED. He will continue soaks at home. Return precautions were discussed. Impression: 1. Chronic right great toe paronychia Discharge Plan Triage Chief Complaint: Wound ED Provider: Maximilian Lombardi Dx/Rx/DC Orders Clinical Impression: Paronychia Instructions: ED Paronychia of the Finger or Toe Prescriptions: New cephalexin 500 mg capsule 500 mg PO Q12 Qty: 14 0RF sulfamethoxazole-trimethoprim [Bactrim DS] 800-160 mg tablet 1 tab PO BID Qty: 20 0RF No Action Ozempic 0.25 mg or 0.5 mg(2 mg/1.5 mL) pen injector 2 mg SUBCUT QWEEK ondansetron [ondansetron] 4 mg tablet,disintegrating 4 mg PO Q8H PRN PRN (Reason: Nausea) Qty: 10 0RF cefdinir 300 mg capsule 300 mg PO BID Qty: 20 0RF metronidazole 500 mg tablet 500 mg PO Q8H Qty: 21 0RF Primary Care Provider: Lydia Galo Referrals: Sarkis Ngo DPM [Med Staff - Active Staff] - 3-5 Days Lydia Galo MD [Primary Care Provider] - Disposition Disposition: Home, Self Care
[2023-03-07] MEDS: Smz/Tmp Ds Tablet 1 TABLET PO (23:23)
[2023-03-07] MEDS: Cephalexin 250 MG Capsule 500 MG PO (23:23)
[2023-03-07 23:25] VITALS: PULSE 97; RESP 16; O2SAT 98
== END 2023-03-07 23:26 | disposition home or self-care (01) ==
LOC: ED 23:21
PROVIDERS: Emergency Provider Student in an Organized Health Care Education/Training Program; Visit Provider Student in an Organized Health Care Education/Training Program
DX: L03.031 Cellulitis of right toe (principal); Z87.891 Personal history of nicotine dependence
CPT/HCPCS: 99283

== ENCOUNTER 2023-07-06 23:15 | Emergency (ER) | payer MEDICARE, MEDICAID, SELFPAY ==
[2023-07-06 23:16] VITALS: BP 170/88; PULSE 78; RESP 16; TEMP 36
[2023-07-06 23:17] VITALS: BP 170/88; PULSE 78; RESP 16; TEMP 36; BMI 41.8
--- NOTE | 2023-07-06 23:34 | ED.VIS.GI ---
HPI HPI - GI History of Present Illness Chief Complaint: GI Bleed Informant: patient Narrative Narrative: Presenting with bright red blood per rectum for the past 3 days. 5-6 episodes a day. Noting clots. 2 days ago had fever. Yesterday had pain right lower quadrant. Denies any abdominal surgeries. Reports diagnosed diverticulosis per CT scan a year ago. No history of colonoscopy. No anticoagulants. 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 He is followed by Dr. Hernandez in [place]. No history of diverticulitis. No urinary symptoms. PFSH PFSH Medical History GI bleed Hypertension Myocardial infarct Pericarditis Home Medications semaglutide 0.25 mg or 0.5 mg (2 mg/1.5 mL) subcutaneous pen injector (Ozempic) 2 mg subcut QWEEK 01/06/22 [History Last Taken Unknown] ondansetron 4 mg disintegrating tablet 4 mg PO Q8H PRN PRN Nausea #10 tabs 05/31/22 [Rx Last Taken Unknown] cefdinir 300 mg capsule 300 mg PO BID #20 caps 11/20/22 [Rx Last Taken Unknown] metronidazole 500 mg tablet 500 mg PO Q8H #21 tabs 11/20/22 [Rx Last Taken Unknown] cephalexin 500 mg capsule 500 mg PO TID #30 caps 03/07/23 [Rx Last Taken Unknown] sulfamethoxazole 800 mg-trimethoprim 160 mg tablet (Bactrim DS) 1 tab PO BID #20 tabs 03/07/23 [Rx Last Taken Unknown] cefdinir 300 mg capsule 300 mg PO Q12H #14 caps 07/07/23 [Rx Last Taken Unknown] metronidazole 500 mg tablet 500 mg PO TID #21 tabs 07/07/23 [Rx Last Taken Unknown] Allergy/AdvReac Type Severity Reaction Status Date / Time Penicillins Allergy Anaphylaxis Verified 07/06/23 23:16 Social History Smoking Status: Former smoker ROS ROS ED Constitutional Constitutional ED: Denies chills, fever(s) or sweats Eyes Eyes: Denies change in vision ENT ENT ED: Denies dysphagia or sore throat Cardiovascular Cardiovascular: Denies chest pain, leg edema, palpitations or racing heartbeat Respiratory/Chest Respiratory/Chest: Denies cough, dyspnea or dyspnea on exertion Gastrointestinal Gastrointestinal: Reports abdominal pain and other Details: Bright red blood per rectum ; Denies diarrhea, nausea or vomiting Genitourinary Genitourinary ED: Denies dysuria, hematuria or urinary frequency Musculoskeletal Musculoskeletal: Denies back pain, extremity pain or neck pain Integumentary Denies rash or wounds Neurologic Neurologic: Denies headache(s), paresthesias or weakness EXAM Physical Exam Const Vital Signs: 07/06/23 23:17 07/06/23 23:16 07/07/23 01:00 Temperature 96.8 F L 96.8 F L Temperature Source Temporal Temporal Pulse Rate 78 78 75 Respiratory Rate 16 16 16 Blood Pressure 170/88 H 170/88 H 135/73 H Blood Pressure Mean 115 115 93 Pulse Ox 96 Oxygen Delivery Method Room Air 07/07/23 03:00 07/07/23 03:50 Temperature 97.9 F Temperature Source Pulse Rate 67 97 Respiratory Rate 18 16 Blood Pressure 126/74 H 113/77 Blood Pressure Mean 91 89 Pulse Ox 93 76 Oxygen Delivery Method Room Air Positive well nourished and well developed General Appearance ED: well developed and NAD; Negative for pallor HEENT Reports moist mucous membranes normocephalic and atraumatic Eyes PERRL, EOMs intact bilaterally and conjunctivae normal General Eye ED: Yes normal appearance of both eyes Neck no lymphadenopathy and supple General: Negative for tenderness Chest Wall Chest: Negative for tenderness Resp normal respiratory effort and normal air movement Effort and Inspection: symmetric chest movement; Negative for respiratory distress Cardio regular rate, regular rhythm and no murmurs Peripheral Pulses: pulses 2+ throughout GI normal to inspection, nondistended, normoactive bowel sounds GI Narrative: Right lower quadrant tenderness no guarding or rebound. Palpation: Negative for guarding or rebound tenderness present Back/Spine no CVA tenderness and no thoracic nor lumbar tenderness Extremity normal to inspection General Extremety ED: Negative for edema or tenderness General Extremity: Negative for edema Neuro oriented x3 and no sensory deficits noted Sensorium / Orientation: awake and alert Skin no rashes or lesions noted and no wounds General Skin Exam: Negative for pallor MDM MDM MDM Narrative Medical decision making narrative: Interventions / MDM: Differential diagnosis: Diverticulitis, diverticulosis, rectal bleed Diagnosis considered but do not suspect: Appendicitis however normal CT. My EKG interpretation: N/A Imaging independently reviewed and interpreted by myself: CT abdomen pelvis IV contrast: Uncomplicated diverticulitis. Normal appendix. External documents reviewed: N/A Test considered but not ordered:N/A ED course: Patient mild tenderness right lower quadrant. Increasing rectal bleeding over 3 days. Labs were drawn CT scan. Fluids started. Declined any pain medications. Stool studies also were ordered with no rectal bleeding. Results white count was normal at 6.6. Hemoglobin 14.1. Electrolytes were normal. CT scan confirms uncomplicated diverticulitis. He had no stools in the emergency department to send for labs. He started on Omnicef and Flagyl for diverticulitis. He will monitor bleeding. Return precaution discussed with the patient. Outpatient follow-up given with GI. All questions were answered. Re-evaluation: stable Disposition discussed with patient/family/significant other: Patient Case discussed with consulting clinician: N/A This note was generated with [employer] dictation software. It may contain incorrect words, spelling, and punctuation that were not noted in checking the note before signing. Lab Data Attestation: I reviewed the patient's lab results. Labs: Laboratory Results - last 24 hr 07/06/23 00:04 WBC 6.6 RBC 4.94 Hgb 14.1 Hct 42.1 MCV 85.2 MCH 28.5 MCHC 33.5 RDW Std Deviation 39.8 RDW Coeff of Kylie 12.9 Plt Count 182 MPV 12.5 H Immature Gran % (Auto) 1.100 H Neut % (Auto) 52.1 Lymph % (Auto) 36.0 [place] % (Auto) 7.7 Eos % (Auto) 2.6 Baso % (Auto) 0.5 Absolute Neuts (auto) 3.4 Absolute Lymphs (auto) 2.37 Nucleated RBC % 0 Differential Comment SCANNED Sodium 141 Potassium 3.6 Chloride 110 H Carbon Dioxide 26.0 Anion Gap 5 BUN 15 Creatinine 0.85 Estim Creat Clear Calc 179.24 Est GFR (MDRD) Af Amer 134 Est GFR (MDRD) Non-Af 110 BUN/Creatinine Ratio 17.6 Glucose 118 H Calcium 8.7 Radiography Diagnostic Testing: Clinical Impression(s) from Imaging Studies Abdomen/Pelvis CT 07/07/23 23:33 IMPRESSION: Focal uncomplicated colitis at the sigmoid colon, likely representing a recurrent diverticulitis as it is just distal to the location of previous diverticulitis though no specific inflamed diverticulum is seen. An unrelated infectious colitis is not completely excluded. CT or colonoscopy follow-up is recommended 6 weeks after treatment to ensure resolution wall thickening. Scattered diverticulosis along the descending colon without additional inflammation. Mild hepatomegaly. Normal appendix. Electronically Signed: Elian Wise MD at 1:13 EDT , Discharge Plan Triage Chief Complaint: GI Bleed ED Provider: Bradley Keita Dx/Rx/DC Orders Clinical Impression: Acute diverticulitis, Rectal bleeding Instructions: ED Diverticulitis, ED Lower GI Bleeding (Stable) Prescriptions: New cefdinir 300 mg capsule 300 mg PO Q12H Qty: 14 0RF metronidazole 500 mg tablet 500 mg PO TID Qty: 21 0RF No Action Ozempic 0.25 mg or 0.5 mg(2 mg/1.5 mL) pen injector 2 mg SUBCUT QWEEK ondansetron [ondansetron] 4 mg tablet,disintegrating 4 mg PO Q8H PRN PRN (Reason: Nausea) Qty: 10 0RF cefdinir 300 mg capsule 300 mg PO BID Qty: 20 0RF metronidazole 500 mg tablet 500 mg PO Q8H Qty: 21 0RF sulfamethoxazole-trimethoprim [Bactrim DS] 800-160 mg tablet 1 tab PO BID Qty: 20 0RF cephalexin 500 mg capsule 500 mg PO TID Qty: 30 0RF Primary Care Provider: Lydia Galo Referrals: Lydia Galo MD [Primary Care Provider] - Dieter Hill DO [Med Staff - Active Staff] - 1-2 Weeks Activity Restrictions/Additional Instructions: Hemoglobin is 14. White count 6. CT scan with uncomplicated diverticulitis. Take and finish antibiotic as prescribed. Avoid any alcohol or alcohol products while on this antibiotic. Follow-up with Dr. Hill for outpatient evaluation. May use Tylenol as needed for pain control. If symptoms worsen, developing fevers, return to ED for reevaluation. Disposition Disposition: Home, Self Care Discharge Date/Time: 07/07/23 03:55
[2023-07-07] MEDS: 0.9% Normal Saline (1000mL) 1,000 ML 125 ML IV (00:11)
[2023-07-07 01:00] VITALS: BP 135/73; PULSE 75; RESP 16; O2SAT 96
[2023-07-07 01:03] LABS: Absolute Lymphocyte Count 2.37 X10^3/uL (0.83-4.51); Absolute Neutrophil Count 3.4 X10^3/uL (2.0-7.7); Basophil# 0.03 X10^3/uL; Basophil% 0.5 % (0-1); Eosinophil# 0.17 X10^3/uL; Eosinophils% 2.6 % (0-5); Hematocrit 42.1 % (40-54); Hemoglobin 14.1 g/dL (13.0-16.5); Lymphocyte # 2.37 X10^3/ul (0.83-4.51); Mean Corp Hgb Conc 33.5 g/dL (32-36); Mean Corpuscular Hgb 28.5 pg (27.0-32.0); Mean Corpuscular Volume 85.2 fL (80-94); Mean Platelet Vol. 12.5 fl (6.2-12.0); Monocyte# 0.51 X10^3/uL; Monocyte% 7.7 % (0-10); NRBC Flagged by Analyzer 0 % (0-5); Neutrophil # 3.44 X10^3/uL (2.7-7.7); Neutrophil % 52.1 % (47-70); POSITIVE COUNT YES; Platelet Count 182 K/mm3 (150-450); RBC Distribution Width CV 12.9 % (11.6-14.6); RBC Distribution Width SD 39.8 fl (35.1-43.9); Red Blood Count 4.94 M/mm3 (4.6-6.2); White Blood Count 6.6 K/mm3 (4.4-11.0)
[2023-07-07 01:04] LABS: Anion Gap 5 (5-15); BUN 15 mg/dL (7-18); BUN/Creat Ratio 17.6 RATIO (10-20); Calcium,Total 8.7 mg/dL (8.5-10.1); Chloride 110 mmol/L (98-107); Creatinine, Serum 0.85 mg/dL (0.70-1.30); EST Glomerular Filtration Rate 110 mL/min (>60); Est Glom Filt Rate - Afr Amer 134 mL/min (>60); Estimated Creatinine Clearance 179.24 ml/min; Glucose 118 mg/dL (74-106); Potassium 3.6 mmol/L (3.5-5.1); Sodium Level 141 mmol/L (136-145)
[2023-07-07 02:20] LABS: Differential Comment SCANNED; Differential Indicated SCAN CRITERIA MET
[2023-07-07 03:00] VITALS: BP 126/74; PULSE 67; RESP 18; O2SAT 93
[2023-07-07] MEDS: metroNIDAZOLE 500 MG Tablet PO (03:45)
[2023-07-07] MEDS: Cefdinir 300 MG Capsule PO (03:45)
[2023-07-07 03:50] VITALS: BP 113/77; PULSE 97; RESP 16; TEMP 36.6; O2SAT 76
--- NOTE | 2023-07-07 23:33 | CT_ITS ---
INDICATION: RLQ pain, blood in stool EXAMINATION: CT ABDOMEN AND PELVIS WITH CONTRAST - CT Abdomen And Pelvis W/ Contrast Injection TECHNIQUE: Helically acquired images were obtained of the abdomen and pelvis following IV contrast. A radiation dose optimization technique was used for this scan. IV Contrast dosage and agent: 100 mL Isovue-370 Oral contrast: None. COMPARISON: November 20, 2022. FINDINGS: LOWER CHEST: Lung bases are clear. No cardiomegaly or pericardial effusion. LIVER: Homogeneous hepatomegaly No focal mass. GALLBLADDER AND BILIARY TREE: No calcified gallstones. No gallbladder distension or wall edema. No intra- or extrahepatic biliary ductal dilation. PANCREAS: No focal cystic or solid mass. SPLEEN: Normal size without focal cystic or solid mass. ADRENAL GLANDS: No nodules. KIDNEYS AND URETERS: Normal renal size and position. No hydronephrosis. PERITONEUM: No ascites or free air. No other fluid collection. BOWEL: No acute gastric finding. No small bowel distention or focal wall thickening. Normal appendix. Descending colonic diverticulosis without focal inflamed diverticulum. There is circumferential colonic wall thickening at the mid sigmoid colon, just distal to previous diverticulitis with mild surrounding inflammatory stranding. No free fluid or free air. No abscess. LYMPH NODES: No enlarged mesenteric or retroperitoneal lymph nodes. VESSELS: Aorta is non-dilated. URINARY BLADDER: Unremarkable. ABDOMINAL WALL: No discrete abdominal or pelvic wall hernia. BONES: No lytic or blastic abnormality. CT/Abdomen/Pelvis W IV Cont ONLY IMPRESSION: Focal uncomplicated colitis at the sigmoid colon, likely representing a recurrent diverticulitis as it is just distal to the location of previous diverticulitis though no specific inflamed diverticulum is seen. An unrelated infectious colitis is not completely excluded. CT or colonoscopy follow-up is recommended 6 weeks after treatment to ensure resolution wall thickening. Scattered diverticulosis along the descending colon without additional inflammation. Mild hepatomegaly. Normal appendix. Electronically Signed: Elian Wise MD at 1:13 EDT ,
== END 2023-07-07 03:55 | disposition home or self-care (01) ==
PROVIDERS: Emergency Provider Emergency Medicine; Visit Provider Emergency Medicine
DX: K57.33 Diverticulitis of large intestine without perforation or abscess with bleeding (principal); Z87.891 Personal history of nicotine dependence
CPT/HCPCS: 74177; 80048; 85025; 96360; 96361; 99283; J7030; A4216

== ENCOUNTER 2023-08-14 12:49 | Emergency (ER) | payer MEDICARE, MEDICAID, SELFPAY ==
[2023-08-14 12:50] VITALS: BP 122/69; PULSE 114; RESP 16; TEMP 38.3; O2SAT 94
[2023-08-14 13:02] VITALS: BP 111/67; PULSE 108; RESP 35; TEMP 39.6; O2SAT 98
--- NOTE | 2023-08-14 13:35 | EKG12_ITS ---
Test Reason : GEN ILLNESS Blood Pressure : / mmHG Vent. Rate : 117 BPM Atrial Rate : 117 BPM P-R Int : 128 ms QRS Dur : 092 ms QT Int : 308 ms P-R-T Axes : 044 032 028 degrees QTc Int : 429 ms Sinus tachycardia Otherwise normal ECG Confirmed by Neymar Guan ([id number]), tape editor TIMOTHY HOLLOWAY ([id number]) on 08/19/2023 7:00:13 AM Referred By: CHARLENE Confirmed By:Neymar Guan
--- NOTE | 2023-08-14 13:47 | EKG12_ITS ---
Test Reason : DIZZY Blood Pressure : / mmHG Vent. Rate : 106 BPM Atrial Rate : 106 BPM P-R Int : 144 ms QRS Dur : 104 ms QT Int : 322 ms P-R-T Axes : 018 027 007 degrees QTc Int : 427 ms Sinus tachycardia Otherwise normal ECG Confirmed by Neymar Guan ([id number]), publishing editor RICARDO AYERS ([id number]) on 08/19/2023 1:17:38 PM Referred By: Confirmed By:Neymar Guan
[2023-08-14] MEDS: 0.9% Normal Saline (1000mL) 1,000 ML 999 ML IV ×2 (13:54→14:54)
[2023-08-14] MEDS: Acetaminophen 500 MG Tablet 1000 MG PO (13:54)
[2023-08-14] MEDS: Ondansetron 4 MG/2 ML Vial IV (13:55)
[2023-08-14 14:00] VITALS: BP 119/66; PULSE 107; RESP 25; TEMP 39.4; O2SAT 98
--- NOTE | 2023-08-14 14:07 | RAD_ITS ---
STUDY: X-RAY CHEST REASON FOR EXAM: Male, 33 years old. Fever and cough TECHNIQUE: Single AP portable view of the chest. COMPARISON: Comparison is made with prior study dated May 31, 2022. FINDINGS: EKG electrodes are seen. Stable mild elevation of the right hemidiaphragm. No acute abnormality is seen. There is no demonstrated pleural abnormality. Normal size heart. Normal mediastinum and nito. Normal visualized pulmonary arteries. Normal visualized aortic arch and descending thoracic aorta. Normal visualized thoracic spine. Normal visualized ribs, clavicles, and shoulders. There is no demonstrated abnormality of the visualized soft tissue structures of the upper abdomen. RAD/Chest 1 View (Portable) IMPRESSION: Normal x-ray examination of the chest. Electronically Signed: Mauro Blackmon MD at 14:28 EDT ,
[2023-08-14 14:13] LABS: Absolute Neutrophil Count 10.9 X10^3/uL (2.0-7.7); Basophil# 0.02 X10^3/uL; Basophil% 0.2 % (0-1); Hematocrit 44.3 % (40-54); Hemoglobin 14.5 g/dL (13.0-16.5); Lymphocyte % 5.5 % (19-41); Mean Corp Hgb Conc 32.7 g/dL (32-36); Mean Corpuscular Hgb 27.9 pg (27.0-32.0); Mean Corpuscular Volume 85.4 fL (80-94); Mean Platelet Vol. 11.2 fl (6.2-12.0); Monocyte# 1.01 X10^3/uL; Monocyte% 7.9 % (0-10); NRBC Flagged by Analyzer 0 % (0-5); Neutrophil # 10.91 X10^3/uL (2.7-7.7); Neutrophil % 85.8 % (47-70); Platelet Count 151 K/mm3 (150-450); RBC Distribution Width CV 12.7 % (11.6-14.6); RBC Distribution Width SD 39.6 fl (35.1-43.9); Red Blood Count 5.19 M/mm3 (4.6-6.2); White Blood Count 12.7 K/mm3 (4.4-11.0)
[2023-08-14 14:21] LABS: International Normalized Ratio 1.3; Prothrombin Time (Protime)PT. 15.7 SECONDS (11.7-14.9)
[2023-08-14 14:22] LABS: Partial Thromboplast Time 26.7 Seconds (24.1-36.2)
[2023-08-14 14:33] LABS: AST(SGOT) 29 U/L (15-37); Alanine Aminotransfer ALT/SGPT 50 U/L (16-61); Albumin, Serum 3.9 g/dL (3.2-5.0); Alkaline Phosphatase 68 U/L (45-117); Anion Gap 7 (5-15); BUN 20 mg/dL (7-18); BUN/Creat Ratio 13.6 RATIO (10-20); Calcium,Total 8.7 mg/dL (8.5-10.1); Chloride 100 mmol/L (98-107); Creatinine, Serum 1.47 mg/dL (0.70-1.30); EST Glomerular Filtration Rate 59 mL/min (>60); Est Glom Filt Rate - Afr Amer 71 mL/min (>60); Glucose 115 mg/dL (74-106); Potassium 3.6 mmol/L (3.5-5.1); Protein, Total 7.9 g/dL (6.4-8.2); Sodium Level 133 mmol/L (136-145)
--- NOTE | 2023-08-14 14:41 | EDS_ITS ---
HPI History of Present Illness Chief Complaint: Dizziness Informant: patient Narrative Narrative: 33-year-old male presenting to the emergency room with vomiting diarrhea and fever. Patient states he felt ill yesterday. He is noting dizziness slight sore throat mild cough and vomiting. He notes that he has had some brown watery stools. No rashes. He states that he vomits anytime he eats or drinks anything. He states that he is having diarrhea maybe once every hour. He states he has a history of colitis and needs a follow-up CT scan but he is not having any abdominal pain at this time. He denies any known sick contacts recent travel or bad foods. [facility] Medical History Schizoaffective disorder Myocardiopathy Migraine Hyperlipidemia Fracture of neck Borderline personality disorder Anxiety Hypertension Pericarditis GI bleed Myocardial infarct Home Medications ?Medication ?Instructions ?Recorded ?Last Taken ?Type ondansetron 4 mg disintegrating 4 mg PO Q8H PRN PRN Nausea #10 tabs 05/31/22 Unknown Rx tablet sulfamethoxazole 800 1 tab PO BID #20 tabs 03/07/23 Unknown Rx mg-trimethoprim 160 mg tablet (Bactrim DS) cefdinir 300 mg capsule 300 mg PO Q12H #14 caps 07/07/23 Unknown Rx metronidazole 500 mg tablet 500 mg PO TID #21 tabs 07/07/23 Unknown Rx icosapent ethyl 1 gram capsule 2 g PO BID 07/29/23 Unknown History (Vascepa) tirzepatide 2.5 mg/0.5 mL 2.5 mg subcut QWEEK 07/29/23 Unknown History subcutaneous pen injector (Mounjaro) ondansetron 4 mg disintegrating 4 mg PO Q6H PRN PRN Nausea #15 tabs 08/14/23 Unknown Rx tablet Allergy/AdvReac Type Severity Reaction Status Date / Time Penicillins Allergy Anaphylaxis Verified 08/14/23 12:52 Family History Grandmother Myocardial infarction Diabetes Seizures Grandfather CVA (cerebral vascular accident) Myocardial infarction Colon cancer Uncle Schizophrenia Aunt Schizophrenia Surgical History History of tonsillectomy Social History Smoking Status: Former smoker ROS ROS ED Constitutional Constitutional ED: Reports chills, fever(s) and sweats; Denies weight loss Eyes Eyes: Denies change in vision or diplopia ENT ENT ED: Reports sore throat; Denies ear pain or rhinorrhea Cardiovascular Cardiovascular: Denies chest pain, orthopnea, palpitations or racing heartbeat Respiratory/Chest Respiratory/Chest: Reports cough; Denies dyspnea or orthopnea Gastrointestinal Gastrointestinal: Reports diarrhea, nausea and vomiting; Denies abdominal pain, constipation or melena Genitourinary Genitourinary ED: Denies dysuria, hematuria or urinary frequency Musculoskeletal Musculoskeletal: Denies arthralgias, back pain, myalgias or neck pain Integumentary Denies abscess or rash Neurologic Neurologic: Denies headache(s), paresthesias or weakness Psychiatric Psychiatric: Denies anxiety, depression, suicidal ideation or suicidal thoughts Endocrine Endocrinology: Denies polydipsia, polyphagia or polyuria Allergic/Immunologic Allergic/Immunologic ED: Denies mouth swelling, tongue swelling or urticaria EXAM Physical Exam Const Vital Signs: 08/14/23 12:50 08/14/23 13:02 08/14/23 13:05 Temperature 101.0 F H 103.2 F H Temperature Source Temporal Oral Pulse Rate 114 H 108 H Respiratory Rate 16 35 H Respiratory Effort Normal Non-Labored Respiratory Pattern Normal Blood Pressure 122/69 H 111/67 Blood Pressure Mean 86 81 Pulse Ox 94 98 Oxygen Delivery Method Room Air Room Air 08/14/23 14:00 08/14/23 15:00 Temperature 103 F H 102.2 F H Temperature Source Oral Oral Pulse Rate 107 H 108 H Respiratory Rate 25 H 22 H Respiratory Effort Respiratory Pattern Blood Pressure 119/66 121/74 H Blood Pressure Mean 83 89 Pulse Ox 98 98 Oxygen Delivery Method Room Air Positive well nourished and well developed General Appearance ED: well developed HEENT Reports normocephalic, head/scalp atraumatic and moist mucous membranes Eyes PERRL and EOMs intact bilaterally Neck no lymphadenopathy, supple and no JVD Resp normal respiratory effort and clear to auscultation bilaterally Cardio regular rate, regular rhythm and no murmurs Cardio Narrative: 3-second capillary refill of fingers Rate: tachycardic GI non-tender, non-distended and no masses Auscultation: hyperactive bowel sounds Palpation: soft; Negative for tender Back/Spine no CVA tenderness and normal ROM Extremity normal to inspection General Extremety ED: Negative for edema General Extremity: Negative for edema Neuro oriented x3 and CN's II-XII intact bilaterally Sensorium / Orientation: alert Motor Exam: strength 5/5 throughout Psych mental status grossly normal Mood & Affect: Negative for depressed or tearful Skin no rashes or lesions noted and no wounds MDM MDM MDM Narrative Medical decision making narrative: Differential diagnosis includes but not limited to viral syndrome pneumonia gastroenteritis/colitis dehydration sepsis. Urinary tract infection electrolyte disturbance. White count 12.7 85.8 neutrophils INR 1.3 PTT 26.7 sodium 133 BUN 28 creatinine 1.47 total bilirubin 1.2 otherwise normal LFTs. Lactic acid is normal at 1.4. Urinalysis shows 0-5 white cells 1-5 red cells 1+ bacteria negative nitrates. Blood and urine cultures were obtained. CT abdomen pelvis was obtained. We are currently awaiting formal read by radiology. My independent interpretation of the chest x-ray is no acute process. COVID influenza and RSV swabs were negative Patient received Tylenol for fever as well as IV fluids and Zofran. Stool studies were ordered but has not yet been able to produce a specimen. If the CT of the abdomen pelvis is negative per radiology we will treat him for viral gastroenteritis. I will prescribe Zofran. Would encourage Tylenol for continued fever. Oral hydration. He will need PCP follow-up return if worsening or concerns History & Record Review Discussion w/independent historian: Patient Lab Data Attestation: I reviewed the patient's lab results. Labs: Laboratory Results - last 24 hr 08/14/23 08/14/23 13:50 14:45 WBC 12.7 H RBC 5.19 Hgb 14.5 Hct 44.3 MCV 85.4 MCH 27.9 MCHC 32.7 RDW Std Deviation 39.6 RDW Coeff of Kylie 12.7 Plt Count 151 MPV 11.2 Immature Gran % (Auto) 0.600 Neut % (Auto) 85.8 H Lymph % (Auto) 5.5 L [place] % (Auto) 7.9 Eos % (Auto) 0.0 Baso % (Auto) 0.2 Absolute Neuts (auto) 10.9 H Absolute Lymphs (auto) 0.70 L Nucleated RBC % 0 PT 15.7 H INR 1.3 APTT 26.7 Sodium 133 L Potassium 3.6 Chloride 100 Carbon Dioxide 26.0 Anion Gap 7 BUN 20 H Creatinine 1.47 H Est GFR (MDRD) Af Amer 71 Est GFR (MDRD) Non-Af 59 L BUN/Creatinine Ratio 13.6 Glucose 115 H Lactic Acid 1.4 Calcium 8.7 Total Bilirubin 1.20 H AST 29 ALT 50 Alkaline Phosphatase 68 Total Protein 7.9 Albumin 3.9 Globulin 4.0 Albumin/Globulin Ratio 1.0 Urine Color Yellow Urine Clarity Clear Urine pH 5.0 Ur Specific [place] 1.020 Urine Protein 30 H Urine Glucose (UA) Normal Urine Ketones 5 H Urine Occult Blood 10 H Urine Nitrite Negative Urine Bilirubin Negative Urine Urobilinogen 1 H Ur Leukocyte Esterase 25 H Urine RBC 0-5 SEEN Urine WBC 0-5 SEEN Ur Squamous Epith Cells 0 SEEN Urine Bacteria 1+ Urine Mucus 1+ Radiography Diagnostic Testing: Clinical Impression(s) from Imaging Studies Chest X-Ray 08/14/23 14:07 IMPRESSION: Normal x-ray examination of the chest. Electronically Signed: Mauro Blackmon MD at 14:28 EDT , EKG Initial EKG: Attestation: I personally reviewed and interpreted this EKG as follows: Comments: Sinus tachycardia with a ventricular rate of 106 bpm. Discharge Plan Triage Chief Complaint: Dizziness ED Provider: Weston Woo Dx/Rx/DC Orders Clinical Impression: Acute febrile illness, Acute dehydration, Vomiting and diarrhea Instructions: ED Dehydration (Adult), ED Vomit Diarrhea Nonspec Adult Prescriptions: New ondansetron 4 mg tablet,disintegrating 4 mg PO Q6H PRN PRN (Reason: Nausea) Qty: 15 0RF No Action icosapent ethyl [Vascepa] 1 gram capsule 2 g PO BID Mounjaro 2.5 mg/0.5 mL pen injector 2.5 mg subcut QWEEK ondansetron [ondansetron] 4 mg tablet,disintegrating 4 mg PO Q8H PRN PRN (Reason: Nausea) Qty: 10 0RF sulfamethoxazole-trimethoprim [Bactrim DS] 800-160 mg tablet 1 tab PO BID Qty: 20 0RF cefdinir 300 mg capsule 300 mg PO Q12H Qty: 14 0RF metronidazole 500 mg tablet 500 mg PO TID Qty: 21 0RF Primary Care Provider: Lydia Galo Referrals: Lydia Galo MD [Primary Care Provider] - 3-5 Days Print Language: Nigerien
[2023-08-14 14:44] LABS: Lactic Acid 1.4 mmol/L (0.4-1.9)
[2023-08-14 14:53] LABS: Squamous Epithelial Cells - UA 0 SEEN /hpf (0-5)
[2023-08-14 14:55] LABS: Color, Urine Yellow (Yellow); Glucose, Dipstick Normal (Normal); Ketone-Dipstick 5 mg/dl (Negative); Leukocyte Esterase-Dipstick 25 /ul (Negative); Nitrite-Dipstick Negative (Negative); Occult Blood-Urine 10 /ul (Negative); Protein-Dipstick 30 mg/dl (Negative); Urine Bilirubin Dipstick Negative (Negative); Urine Clarity Clear (Clear); Urine Urobilinogen 1 mg/dl (Normal)
[2023-08-14 15:00] VITALS: BP 121/74; PULSE 108; RESP 22; TEMP 39; O2SAT 98
[2023-08-14 15:03] LABS: Bacteria 1+ /hpf (None Seen); Mucous, Urine 1+ /hpf (<or=2+); Red Blood Cells-Urine 0-5 SEEN /hpf (0-5); White Blood Cells 0-5 SEEN /hpf (0-5)
--- NOTE | 2023-08-14 15:13 | CT_ITS ---
INDICATION: colitis fever EXAMINATION: CT Abdomen And Pelvis W/ Contrast Injection TECHNIQUE: Helically acquired images were obtained of the abdomen and pelvis after IV contrast. A radiation dose optimization technique was used for this scan. IV Contrast dosage and agent: IV 100mL Isovue-300 Oral contrast: None. COMPARISON: None. FINDINGS: Visualized lung bases: Unremarkable Liver: Unremarkable Gallbladder: Unremarkable Spleen: Unremarkable Pancreas: Unremarkable Adrenal Glands: Unremarkable Kidneys: Unremarkable Vasculature: Unremarkable GI Tract: Unremarkable Lymphadenopathy: None Peritoneum: No ascites. Bladder: Unremarkable Reproductive organs: Unremarkable Bones/Soft tissues: No suspicious osseous or soft tissue lesions CT/Abdomen/Pelvis W IV Cont ONLY IMPRESSION: No acute abnormalities in the abdomen or pelvis. Electronically Signed: Polo Alberto MD at 16:56 EDT ,
[2023-08-14 17:08] VITALS: BP 121/63; PULSE 89; RESP 16; TEMP 36.1; O2SAT 95
== END 2023-08-14 17:10 | disposition home or self-care (01) ==
LOC: ED 13:32
PROVIDERS: Emergency Provider Emergency Medicine; Visit Provider Emergency Medicine
DX: R11.10 Vomiting, unspecified (principal); R50.9 Fever, unspecified; R19.7 Diarrhea, unspecified; E86.0 Dehydration; I10 Essential (primary) hypertension; Z79.899 Other long term (current) drug therapy; Z87.891 Personal history of nicotine dependence
CPT/HCPCS: 99285; 71045; 74177; 80053; 81001; 83605; 85025; 85610; 85730; 87040; 87086; 87149; 87631; 93005; J7030; Q9967; A4216; J2405

== ENCOUNTER 2023-08-15 19:59 | Inpatient (IN) | payer MEDICARE, MEDICAID, SELFPAY ==
[2023-08-15] VITALS (7 sets, daily range): BP systolic 106–124; BP diastolic 62–84; PULSE 111–123; RESP 18–23; TEMP 37.6–39.8; O2SAT 90–99; BMI 41.7; BMI 41.6
--- NOTE | 2023-08-15 20:17 | EDS_ITS ---
HPI <ARLETH Cornejo - Last Filed: 08/15/23 22:07> History of Present Illness Chief Complaint: General Illness Narrative Narrative: Patient presenting today due to fevers, chills, nausea, vomiting, and diarrhea that started 2 or 3 days ago. He reports that he was seen here in the ER yesterday and was discharged home with Zofran which has given him minimal relief. He reports that he developed a dull and aching intermittent midsternal chest pain that radiates to his left jaw and left arm last night. He is still experiencing the symptoms. He denies any abdominal pain, urinary symptoms, history of C. difficile or recent antibiotics, history of blood clots or recent surgery/procedures/travel. PFSH <ARLETH Cornejo - Last Filed: 08/15/23 22:07> PFSH Medical History Schizoaffective disorder Myocardiopathy Migraine Hyperlipidemia Fracture of neck Borderline personality disorder Anxiety Hypertension Pericarditis GI bleed Myocardial infarct Allergy/AdvReac Type Severity Reaction Status Date / Time Penicillins Allergy Anaphylaxis Verified 08/15/23 20:00 Family History Grandmother Myocardial infarction Diabetes Seizures Grandfather CVA (cerebral vascular accident) Myocardial infarction Colon cancer Uncle Schizophrenia Aunt Schizophrenia Surgical History History of tonsillectomy Social History Smoking Status: Former smoker ROS <ARLETH Cornejo - Last Filed: 08/15/23 22:07> ROS ED Constitutional Constitutional ED: Reports chills, fever(s) and sweats Cardiovascular Cardiovascular: Reports chest pain; Denies palpitations Respiratory/Chest Respiratory/Chest: Denies cough or dyspnea Gastrointestinal Gastrointestinal: Reports diarrhea, nausea and vomiting; Denies abdominal pain or constipation Genitourinary Genitourinary ED: Denies dysuria, hematuria or urinary urgency Musculoskeletal Musculoskeletal: Denies arthralgias or myalgias Integumentary Denies rash Neurologic Neurologic: Denies weakness EXAM <ARLETH Cornejo - Last Filed: 08/15/23 22:07> Physical Exam Const Vital Signs: 08/15/23 19:59 08/15/23 20:29 08/15/23 20:52 Temperature 99.7 F H 103.6 F H Temperature Source Temporal Oral Pulse Rate 114 H Respiratory Rate 18 Respiratory Effort Normal Non-Labored Respiratory Pattern Normal Blood Pressure 124/84 H Blood Pressure Mean 97 Pulse Ox 99 Oxygen Delivery Method 08/15/23 21:42 Temperature 103.2 F H Temperature Source Oral Pulse Rate 111 H Respiratory Rate 19 H Respiratory Effort Respiratory Pattern Blood Pressure 106/62 Blood Pressure Mean 76 Pulse Ox 90 Oxygen Delivery Method Room Air Positive well nourished, well developed and no apparent distress General Appearance ED: well developed HEENT Reports normocephalic and head/scalp atraumatic Mouth ED: Yes moist mucous membranes normal Eyes PERRL and EOMs intact bilaterally Neck full ROM and supple Chest Wall inspection of chest normal Resp normal respiratory effort and clear to auscultation bilaterally Cardio regular rate, regular rhythm and no murmurs GI soft to palpation, non-tender, non-distended and no masses Back/Spine normal ROM and normal to inspection Extremity normal to inspection and full ROM Neuro oriented x3, CN's II-XII intact bilaterally, moves all extremities, no focal motor deficits and no sensory deficits noted Sensorium / Orientation: awake and alert Psych mental status grossly normal and thought process normal Skin no rashes or lesions noted and no wounds <Dr. Ozzy Hanson, - Last Filed: 08/15/23 23:09> Physical Exam Const Vital Signs: 08/15/23 19:59 08/15/23 20:29 08/15/23 20:52 Temperature 99.7 F H 103.6 F H Temperature Source Temporal Oral Pulse Rate 114 H Respiratory Rate 18 Respiratory Effort Normal Non-Labored Respiratory Pattern Normal Blood Pressure 124/84 H Blood Pressure Mean 97 Pulse Ox 99 Oxygen Delivery Method 08/15/23 21:42 Temperature 103.2 F H Temperature Source Oral Pulse Rate 111 H Respiratory Rate 19 H Respiratory Effort Respiratory Pattern Blood Pressure 106/62 Blood Pressure Mean 76 Pulse Ox 90 Oxygen Delivery Method Room Air MDM <ARLETH Cornejo - Last Filed: 08/15/23 22:07> MDM MDM Narrative Medical decision making narrative: Patient presenting due to nausea, vomiting, diarrhea, and chest pain. He is ta chycardic at 114 bpm and febrile. He was seen here in the emergency department yesterday, he had a full workup including a CT scan of the abdomen and pelvis which was negative for any acute findings, he did have a preliminary blood culture come back with Staphylococcus areas. Patient reports he does have a history of pericarditis several years ago due to a viral infection, given his chest pain troponin will be obtained. This is elevated at 9930, I did consult with cardiology and they recommend starting patient on heparin, he was also given aspirin. They suspect that this is likely myopericarditis and recommend admission to the hospital so that an echocardiogram can be obtained tomorrow. He is febrile at 103.6, he was given IV fluids and Tylenol. He was also started on IV vancomycin. I spoke with the hospitalist and he will be admitted in stable condition. He is comfortable with plan. Lab Data Attestation: I reviewed the patient's lab results. Labs: Laboratory Results - last 24 hr 08/15/23 08/15/23 08/15/23 20:40 21:11 21:50 WBC 8.1 RBC 4.70 Hgb 13.4 Hct 40.6 MCV 86.4 MCH 28.5 MCHC 33.0 RDW Std Deviation 41.2 RDW Coeff of Kylie 13.0 Plt Count 101 L MPV 11.2 Immature Gran % (Auto) 0.400 Neut % (Auto) 84.6 H Lymph % (Auto) 8.0 L Licking % (Auto) 6.8 Eos % (Auto) 0.0 Baso % (Auto) 0.2 Absolute Neuts (auto) 6.8 Absolute Lymphs (auto) 0.65 L Nucleated RBC % 0 PT 15.6 H INR 1.2 APTT 32.0 Sodium 131 L Potassium 3.6 Chloride 98 Carbon Dioxide 25.0 Anion Gap 8 BUN 15 Creatinine 1.15 Estim Creat Clear Calc 132.36 Est GFR (MDRD) Af Amer 94 Est GFR (MDRD) Non-Af 78 BUN/Creatinine Ratio 13.0 Glucose 104 Lactic Acid 0.9 Calcium 8.3 L Total Bilirubin 0.80 AST 105 H ALT 63 H Alkaline Phosphatase 58 Troponin I High Sens 9930 H* Total Protein 7.2 Albumin 3.3 Globulin 3.9 Albumin/Globulin Ratio 0.8 L Radiography X-Ray: Read by ED Physician and Read by Radiologist Diagnostic Testing: Clinical Impression(s) from Imaging Studies Chest X-Ray 08/15/23 20:20 IMPRESSION: No radiographic evidence of acute cardiopulmonary disease. Electronically Signed: Javier Otto MD at 20:52 EDT Reading Location ID and State: [facility] / [place] Tel , Service support , EKG Initial EKG: Comments: 117 bpm, sinus tachycardia, slight ST elevation in V2 and V3. Patient does not meet STEMI criteria. Reviewed and interpreted by attending ED physician. <Dr. Ozzy Hanson, DO - Last Filed: 08/15/23 23:09> [facility] Lab Data Labs: Laboratory Results - last 24 hr 08/15/23 08/15/23 08/15/23 20:40 21:11 21:50 WBC 8.1 RBC 4.70 Hgb 13.4 Hct 40.6 MCV 86.4 MCH 28.5 MCHC 33.0 RDW Std Deviation 41.2 RDW Coeff of Kylie 13.0 Plt Count 101 L MPV 11.2 Immature Gran % (Auto) 0.400 Neut % (Auto) 84.6 H Lymph % (Auto) 8.0 L Licking % (Auto) 6.8 Eos % (Auto) 0.0 Baso % (Auto) 0.2 Absolute Neuts (auto) 6.8 Absolute Lymphs (auto) 0.65 L Nucleated RBC % 0 PT 15.6 H INR 1.2 APTT 32.0 Sodium 131 L Potassium 3.6 Chloride 98 Carbon Dioxide 25.0 Anion Gap 8 BUN 15 Creatinine 1.15 Estim Creat Clear Calc 132.36 Est GFR (MDRD) Af Amer 94 Est GFR (MDRD) Non-Af 78 BUN/Creatinine Ratio 13.0 Glucose 104 Lactic Acid 0.9 Calcium 8.3 L Total Bilirubin 0.80 AST 105 H ALT 63 H Alkaline Phosphatase 58 Troponin I High Sens 9930 H* Total Protein 7.2 Albumin 3.3 Globulin 3.9 Albumin/Globulin Ratio 0.8 L Radiography Diagnostic Testing: Clinical Impression(s) from Imaging Studies Chest X-Ray 08/15/23 20:20 IMPRESSION: No radiographic evidence of acute cardiopulmonary disease. Electronically Signed: Javier Otto MD at 20:52 EDT , Management Discussion w/another healthcare provider: Hospitalist and Occupational Health Rn Treatment and Re-Evaluation :: I have personally performed a face to face assessment of the patient and have reviewed the TAN Note. I performed a substantive portion of the visit including all aspects of the following. My saavedra findings include: History: Patient presents with chest pain and fever that began yesterday. Patient states it is gradually gotten worse. Patient states he has a dull throbbing sensation over the substernal area. Patient states nothing makes it better and nothing makes it worse. Patient states it has been constant since yesterday. Patient admits to fevers and chills. Patient also admits to a cough and some shortness of breath. Patient states he has had some nausea, vomiting, and diarrhea. Patient also admits to some urinary frequency and dark urine. Patient states he also has pain in his neck and back. Exam: Vital signs are stable except for mild tachycardia of 114. Patient was afebrile initially. Patient is in no acute distress. Oral mucosa is pink and moist. Neck is supple. Trachea is midline. There is no JVD. Heart was regular and tachycardic. Lungs are clear and equal bilaterally. There is good respiratory effort noted. Abdomen is soft. Bowel sounds are normal. There are some mild diffuse tenderness. There is no rebound or guarding noted. Cranial nerves II through XII are intact. There are no focal motor or sensory deficits noted. Medical Decision Making: Differential diagnosis includes cardiac dysrhythmia, cardiac ischemia, electrolyte abnormality, pneumonia, pneumothorax, viral illness, and anxiety. EKG will be obtained to assess for cardiac dysrhythmia and cardiac ischemia. Chest x-ray will be obtained to assess for pneumonia and pneumothorax. CBC will be obtained to assess for leukocytosis and anemia. Comprehensive metabolic profile will be obtained to assess for hepatic function, renal function, and electrolyte abnormality. High-sensitivity troponin will be obtained to assess for cardiac ischemia. PT with INR and PTT will be obtained to assess for coagulopathy. Lactate will be obtained to assess for sepsis. 2- hour repeat high-sensitivity troponin will be obtained to assess for cardiac ischemia. Patient was given IV fluids. Patient was given a dose of Tylenol. Patient was given Toradol and Zofran initially. EKG was obtained. On my independent inte rpretation it shows sinus tachycardia with a rate of 117. TN interval, QRS interval, and QTc intervals are within normal limits. There are nonspecific ST- T wave changes noted in the anterior leads. This was unchanged compared to previous EKG dated 05/31/2022. Portable 1 view chest x-ray was obtained. On my independent interpretation, lung armstrong are clear. There is normal cardiac silhouette. Bony thorax is normal. There is no acute process noted. Radiologist also interpreted the x-ray and agrees. CBC was reviewed. Platelets were slightly low at 101. The remainder was within normal limits. PT with INR and PTT were reviewed. Pro time was slightly elevated at 15.6. INR is 1.2. PTT was normal. Comprehensive metabolic profile was reviewed. Sodium was slightly low at 131. AST was slightly elevated at 105 and ALT was slightly elevated at 63. Calcium was slightly low at 8.3. The remainder was within normal limits. Initial high-sensitivity troponin was reviewed and was elevated at 9930. Lactate was reviewed and was normal at 0.9. Patient was advised of his findings. Patient was given aspirin. Case was discussed with Dr. Foster from cardiology. He recommended starting the patient on heparin. Case was discussed with the hospitalist. She will admit the patient to her service. Patient understood and was agreeable with the plan. All questions were answered. <Dr. Ozzy Hanson, DO - Last Filed: 08/15/23 23:09> Critical Care Time Critical Care Time: Yes Critical care time (excluding procedures): 30-74 minutes (32 minutes), Including time spent:, Discussing w/Patient &/or Family/Chief Nurse Anesthetist, Discussing w/Consultants, Arranging Admission or Transfer and Performing Direct Patient Care at Bedside Discharge Plan Dx/Rx/DC Orders Clinical Impression: Elevated troponin, Pericarditis, Nausea & vomiting, Fever, Bacteremia Disposition Disposition: [facility]
--- NOTE | 2023-08-15 20:20 | RAD_ITS ---
INDICATION: chest pain EXAMINATION/TECHNIQUE: X-RAY - portable upright AP chest x-ray COMPARISON: 08/14/2023 FINDINGS: LINES/DEVICES: None. LUNGS: No consolidation, edema or effusion. No pneumothorax. MEDIASTINUM AND CARDIOVASCULAR STRUCTURES: Cardiac silhouette not enlarged. Central airways and mediastinal contour are unremarkable. BONES AND SOFT TISSUES: Unremarkable. RAD/Chest 1 View (Portable) IMPRESSION: No radiographic evidence of acute cardiopulmonary disease. Electronically Signed: Javier Otto MD at 20:52 EDT ,
[2023-08-15] MEDS: Ondansetron 4 MG/2 ML Vial IV (20:34)
[2023-08-15] MEDS: Ketorolac 15 MG/ML Vial IV (20:35)
[2023-08-15] MEDS: 0.9% Normal Saline (1000mL) 1,000 ML 999 ML IV (20:35)
[2023-08-15 21:01] LABS: Absolute Lymphocyte Count 0.65 X10^3/uL (0.83-4.51); Absolute Neutrophil Count 6.8 X10^3/uL (2.0-7.7); Basophil# 0.02 X10^3/uL; Basophil% 0.2 % (0-1); Hematocrit 40.6 % (40-54); Hemoglobin 13.4 g/dL (13.0-16.5); Lymphocyte # 0.65 X10^3/ul (0.83-4.51); Mean Corpuscular Hgb 28.5 pg (27.0-32.0); Mean Corpuscular Volume 86.4 fL (80-94); Mean Platelet Vol. 11.2 fl (6.2-12.0); Monocyte# 0.55 X10^3/uL; Monocyte% 6.8 % (0-10); NRBC Flagged by Analyzer 0 % (0-5); Neutrophil # 6.84 X10^3/uL (2.7-7.7); Neutrophil % 84.6 % (47-70); Platelet Count 101 K/mm3 (150-450); RBC Distribution Width SD 41.2 fl (35.1-43.9); White Blood Count 8.1 K/mm3 (4.4-11.0)
[2023-08-15] MEDS: Acetaminophen 325 MG Tablet 650 MG PO (21:15)
[2023-08-15 21:20] LABS: ALB/GLOB Ratio 0.8 RATIO (0.9-2.4); AST(SGOT) 105 U/L (15-37); Alanine Aminotransfer ALT/SGPT 63 U/L (16-61); Albumin, Serum 3.3 g/dL (3.2-5.0); Alkaline Phosphatase 58 U/L (45-117); Anion Gap 8 (5-15); BUN 15 mg/dL (7-18); Calcium,Total 8.3 mg/dL (8.5-10.1); Chloride 98 mmol/L (98-107); Creatinine, Serum 1.15 mg/dL (0.70-1.30); EST Glomerular Filtration Rate 78 mL/min (>60); Est Glom Filt Rate - Afr Amer 94 mL/min (>60); Estimated Creatinine Clearance 132.36 ml/min; Globulin 3.9 g/dL (2.2-4.2); Glucose 104 mg/dL (74-106); Potassium 3.6 mmol/L (3.5-5.1); Protein, Total 7.2 g/dL (6.4-8.2); Sodium Level 131 mmol/L (136-145); Troponin-I HS 9930 pg/mL (3.0-78.0)
[2023-08-15 21:47] LABS: Lactic Acid 0.9 mmol/L (0.4-1.9)
[2023-08-15] MEDS: Aspirin 325 MG Tablet PO (22:01)
[2023-08-15] MEDS: Heparin Injection (Vial) 5,000 UNIT/ML VIAL 4000 UNIT IV (22:01)
--- NOTE | 2023-08-15 22:03 | PCM.HP.STD ---
HPI - General General Date of Admission: 08/15/23 Date of Service: 08/15/23 Chief Complaint: Chest pain, N/V/D/F HPI Narrative The patient is a 33 y/o M w/ PMHx: Former tobacco use--> transition to vaping use, Morbid obesity, Schizoaffective disorder/Borderline personality disorder/Anxiety and Depression, Hx prior GI bleed/GERD, HTN, Hx Pericarditis reported prior with myocardiopathy, recent ED visit 08/14/2023 with reported onset of illness the day previous with nausea, emesis, diarrhea and fever with mild dizziness and slight sore throat as well as nonproductive cough with stools reported as watery brown in appearance with inability to maintain any oral intake reporting that he had prior history of colitis but denies any significant abdominal discomfort with normal lactic acid, UA not marked appearing, unremarkable CT abdomen and pelvis, EKG with sinus tachycardia with no acute evidence of ischemia reportedly with improvement with Zofran and IV fluids who now [facility] with history of now onset dull aching intermittent midsternal chest discomfort with radiation to his left chest and back as well as left jaw and his left arm starting the evening prior with symptoms ongoing in addition to his recent fevers, chills, nausea, emesis and diarrhea although these have lessened some but still ongoing despite Zofran usage at home but given new symptoms prompted ED evaluation. He notes the chest discomfort is more of a stabbing-like sensation and rates it 9 out of 10 in severity. He states that he feels different than he does previously when he had prior pericarditis and cardiomyopathy. 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 Herself and their 3 children have not been ill at all. Workup in the ED included T103.6, heart rate 114, BP 124/84, respiratory rate 18, 99% on room air, CBC with WC 8.1, human 13.4, platelet 101 with no significant left shift with lymphopenia, CMP with sodium 131, calcium 8.3, AST/LT 105/63, troponin initial 9930, chest x-ray with no acute cardiopulmonary findings, EKG with sinus tachycardia with slight ST elevations in V2 and V3. In the ED patient ministered full-strength aspirin therapy, 1 L normal saline, Tylenol 650 p.o. x 1, heparin bolus and drip, Toradol 50 mg IV x 1 and Zofran 4 mg IV x 1 in addition to IV vancomycin following review of recent blood cultures. ED physician did discuss case with cardiology who notes likely myopericarditis. Of note from review of records from his previous ED evaluation the urine culture has been reported as no growth but unfortunately patient blood culture x 2 with gram-positive cocci/Staphylococcus growth consistent with bacteremia. [facility] Medical History Depression Myocardiopathy Migraine Hyperlipidemia Fracture of neck Anxiety Hypertension Pericarditis GI bleed Myocardial infarct Allergy/AdvReac Type Severity Reaction Status Date / Time Penicillins Allergy Anaphylaxis Verified 08/15/23 23:10 Family History Grandmother Myocardial infarction Diabetes Seizures Grandfather CVA (cerebral vascular accident) Myocardial infarction Colon cancer Uncle Schizophrenia Aunt Schizophrenia Surgical History History of tonsillectomy Social History (Updated 08/15/23 @ 23:[address] Qi Narayan MD) household members: spouse and children Smoking Status: Former smoker Electronic Cigarette Use: with nicotine how long ago did patient quit smoking: Quit cigarette tobacco 2-3 yrs prior (03/21 ppd)->transition to vaping. alcohol intake: never substance use type: does not use ROS ROS Narrative Admission Review of Systems: CONSTITUTIONAL: No weight loss, + fever, chills, weakness or fatigue. HEENT: + Mild dizziness. Eyes: No visual loss, blurred vision, double vision or yellow sclerae. Ears, Nose, Throat: No hearing loss, sneezing, congestion, runny nose or sore throat. SKIN: No rash or itching, lesions, wounds. CARDIOVASCULAR: + Chest pain, mild dizziness. No palpitations, edema, orthopnea, syncopal events. RESPIRATORY: No shortness of breath, cough or sputum, wheezing, hemoptysis. GASTROINTESTINAL: + anorexia, nausea, vomiting, diarrhea, abdominal pain. No melena, BRBPR. GENITOURINARY: No dysuria, frequency, urgency or retention. NEUROLOGICAL: + Mild dizziness. No headache, syncope, paralysis, ataxia, numbness or tingling in the extremities, focal weakness, change in bowel or bladder control, seizure. MUSCULOSKELETAL: No muscle, back pain, joint pain or stiffness. HEMATOLOGIC: No anemia, bleeding or bruising. LYMPHATICS: No enlarged nodes. No history of splenectomy. PSYCHIATRIC: + History of Schizoaffective disorder/Borderline personality disorder/Anxiety and Depression. ENDOCRINOLOGIC: + reports of sweating, cold or heat intolerance. No polyuria or polydipsia. ALLERGIES: + History of anaphylaxis. Vital Signs Vital Signs Vital Signs: 08/15/23 19:59 08/15/23 20:29 08/15/23 20:52 Temperature 99.7 F H 103.6 F H Temperature Source Temporal Oral Pulse Rate 114 H Respiratory Rate 18 Respiratory Effort Normal Non-Labored Respiratory Pattern Normal Blood Pressure 124/84 H Blood Pressure Mean 97 Pulse Ox 99 Oxygen Delivery Method 08/15/23 21:42 Temperature 103.2 F H Temperature Source Oral Pulse Rate 111 H Respiratory Rate 19 H Respiratory Effort Respiratory Pattern Blood Pressure 106/62 Blood Pressure Mean 76 Pulse Ox 90 Oxygen Delivery Method Room Air Weight Weight: 307 lb 14.4 oz Body Mass Index (BMI) 41.7 Physical Exam Narrative Physical Examination: General: Awake, alert, oriented x 3 and cooperative, seated upright in the ED bed, ill-appearing. Skin: Flushed color, normal turgor, no icterus, no cyanosis. HEENT: AT/NC, EOMI, PERRLA, moderately dry MM, no carotid bruits or JVD noted. Lungs: Diminished, greater bases, mildly increased respiratory rate but no distress, no rales, ronchi or wheezing. Heart: Tachycardic with regular rhythm; no gallop, rub audible. Abdomen: Soft, morbidly obese, NTTP, ND, hyperactive BS, no appreciated HSM. Extremities: No cyanosis, clubbing, or edema. Neurological: Patient awake, alert, oriented as noted, cognitive function intact; pupils equally reactive to light and accommodation, cranial nerves grossly normal, moving all 4 extremities, no focal deficits, strength moderately globally Nickie secondary to acute presentation complaints. Psychiatric: Affect appears fatigued, ill-appearing, no acute evidence of depressive or anxiety feeling but does have underlying psychiatric history s. Results Lab / Micro Data 08/15/23 20:40 08/15/23 20:40 Labs: Laboratory Results - last 24 hr 08/15/23 20:40: WBC 8.1, RBC 4.70, Hgb 13.4, Hct 40.6, MCV 86.4, MCH 28.5, MCHC 33.0, RDW Std Deviation 41.2, RDW Coeff of Kylie 13.0, Plt Count 101 L, MPV 11.2, Immature Gran % (Auto) 0.400, Neut % (Auto) 84.6 H, Lymph % (Auto) 8.0 L, [place] % (Auto) 6.8, Eos % (Auto) 0.0, Baso % (Auto) 0.2, Absolute Neuts (auto) 6.8, Absolute Lymphs (auto) 0.65 L, Nucleated RBC % 0, Sodium 131 L, Potassium 3.6, Chloride 98, Carbon Dioxide 25.0, Anion Gap 8, BUN 15, Creatinine 1.15, Estim Creat Clear Calc 132.36, Est GFR (MDRD) Af Amer 94, Est GFR (MDRD) Non-Af 78, BUN/Creatinine Ratio 13.0, Glucose 104, Calcium 8.3 L, Total Bilirubin 0.80, AST 105 H, ALT 63 H, Alkaline Phosphatase 58, Troponin I High Sens 9930 H*, Total Protein 7.2, Albumin 3.3, Globulin 3.9, Albumin/Globulin Ratio 0.8 L 08/15/23 21:11: Lactic Acid 0.9 Imaging Radiology Impression Chest X-Ray 08/15/23 20:20 IMPRESSION: No radiographic evidence of acute cardiopulmonary disease. 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, recent ED visit 08/14/2023 with reported onset of illness the day previous with nausea, emesis, diarrhea and fever with mild dizziness and slight sore throat as well as nonproductive cough with stools reported as watery brown in appearance with inability to maintain any oral intake reporting that he had prior history of colitis but denies any significant abdominal discomfort with normal lactic acid, UA not marked appearing, unremarkable CT abdomen and pelvis, EKG with sinus tachycardia with no acute evidence of ischemia reportedly with improvement with Zofran and IV fluids who now [facility]23 with history of now onset dull aching intermittent midsternal chest discomfort with radiation to his left chest and back as well as left jaw and his left arm starting the evening prior with symptoms ongoing in addition to his recent fevers, chills, nausea, emesis and diarrhea although these have lessened some but still ongoing despite Zofran usage at home but given new symptoms prompted ED evaluation. He notes the chest discomfort is more of a stabbing-like sensation. #1. Chest Pain w/ concern for recurrent Acute Myopericarditis with elevated troponins with history of previous pericarditis and myocardiopathy with recent illnesses noted #2 and staphylococcal bacteremia: EKG in ED w/ sinus tachycardia with slight ST elevations in V2 and V3, CXR w/ no acute cardiopulmonary findings. Trop elevated, initial 9930. Will admit to PCU, maintain on a monitored bed, continue serial cardiac enzymes and EKGs. Obtain magnesium level upon admission. Will continue heparin drip initiated in the ED. Will continue aspirin therapy. FLP in a.m. requested. ECHO requested. Cardiology consulted and following. CRP and ESR will also be requested. #2. Fever, N/V/D, concerning previously upon ED evaluation for acute viral gastroenteritis with noted on blood cultures from prior ED evaluation now staphylococcal/gram-positive cocci bacteremia: Will continue aggressive hydration, will obtain c diff, stool cx, will initiate and maintain on IV vancomycin, infectious disease consulted, echocardiogram as noted above requested, as noted above will allow diet until midnight tonight with n.p.o. status following, anti-emetics, pain regimen PRN. Respiratory viral panel. If stool studies are unremarkable and any persistent diarrhea is present may then initiate loperamide regimen. Urine culture from 08/14/2023 demonstrates no culture growth. Urine drug screen has been requested. Repeat Bld Cx ordered. #3. Transaminitis: Admission CMP with AST/ALT 105/63, no previous elevations noted on prior labs, likely associate with his acute presentation as noted above, will continue to treat and will trend CMP. #4. Thrombocytopenia, acute: Likely reactive with his acute presentation, continue to closely monitor, trend CBC. #5. Hypertension: Noted history, per current list is not on medication but currently blood pressure on the low normal side, will continue to only monitor at this point given acute illness as well some concern his pressures could fall further. #6. Schizoaffective disorder/Borderline personality disorder/Anxiety and Depression: Per current list does not appear to be on any type of psychiatric regimen but clarifying further, will add once obtained if medications ongoing. Encourage continued outpatient evaluation and workup/counseling. #7. GERD, history of previous GI bleed: Will maintain on PPI. #8. Morbid Obesity: Weight loss and lifestyle changes encouraged. #9. Former tobacco use: Encourage continued tobacco cessation. #10. DVT prophylaxis: Will maintain heparin drip. Charges/Coding Visit Charges Inpatient E&M: 91834 Init Hosp L3
[2023-08-15] MEDS: HEPARIN/D5w 25,000 UNITS 25,000 UNITS/250 ML IV.SOLN. 10 UNITS CONT INF (22:06)
[2023-08-15 22:12] LABS: International Normalized Ratio 1.2; Prothrombin Time (Protime)PT. 15.6 SECONDS (11.7-14.9)
[2023-08-15] MEDS: Vancomycin HCl 2,000 MG in 0.9% Normal Saline (500mL Bag) 500 ML 250 MG IV (22:34)
--- NOTE | 2023-08-15 22:56 | ECHOCS_ITS ---
Reason For Study: Chest Pain Procedure This was a 2D Doppler, Color Flow transthoracic echocardiogram. Contrast injection was performed. Exam performed portable in patient room. Left Ventricle Normal LV size. Mild concentric left ventricular hypertrophy. Left ventricular systolic function is normal. Septal flattening with inspiration. The estimated ejection fraction is 60 %. Right Ventricle Mildly dilated right ventricle. Mild global right ventricular systolic dysfunction. Atria Normal left atrium. Normal right atrium. Mitral Valve The mitral valve is structurally normal. No prolapse or stenosis seen. Mitral inflow respiratory variation > 25% consitent with constrictive pericarditis physiology. Trivial mitral valve insufficiency. Tricuspid Valve Normal tricuspid valve. Trivial tricuspid valve insufficiency. Pulmonary artery systolic pressure is 30 mmHg. Aortic Valve Trisinus/trileaflet aortic valve. Pulmonic Valve Normal pulmonic valve. Great Vessels Normal aortic root. The inferior vena cava is dilated. Pericardium/Pleural Trivial pericardial effusion. Echogenic pericardium. There are no echocardiographic indications of cardiac tamponade. Medication Diluted definity 2ml given slow IV push to enhance endocardial definition. MMode/2D Measurements & Calculations LVIDd: 5.3 cm IVSd: 1.3 cm Ao root diam: 3.0 cm LVIDs: 3.8 cm LVPWd: 1.3 cm RVDd: 4.2 cm FS: 27.5 % LAV(MOD-bp): 46.7 ml LVAd ap4: 33.9 cm2 SV(MOD-sp4): 65.1 ml LAV(MOD-bp) Indexed: 18.3 ml/m2 LVLd ap4: 8.2 cm LAV(MOD-sp2): 37.3 ml EDV(MOD-sp4): 114.7 ml LAV(MOD-sp4): 52.5 ml EDV(sp4-el): 119.3 ml LVAs ap4: 20.7 cm2 LVLs ap4: 6.9 cm ESV(MOD-sp4): 49.5 ml ESV(sp4-el): 52.4 ml EF(MOD-sp4): 56.8 % EF(sp4-el): 56.1 % SV(sp4-el): 66.9 ml LA A4 area: 18.4 cm2 LA dimension(2D): 4.6 cm RA A4 area: 12.3 cm2 TAPSE: 2.0 cm Time Measurements MV dec time: 0.16 sec Doppler Measurements & Calculations MV E max boy: 120.4 cm/sec Lat Peak E' Boy: 14.8 cm/sec Med Peak E' Boy: 9.0 cm/sec MV A max boy: 69.9 cm/sec E/E' lat: 8.1 E/E' med: 13.4 MV E/A: 1.7 MV dec slope: 761.6 cm/sec2 Ao V2 max: 139.8 cm/sec LV V1 max: 127.2 cm/sec Ao max P.8 mmHg LV V1 max P.5 mmHg Ao V2 mean: 110.3 cm/sec Ao mean P.1 mmHg Ao V2 VTI: 23.5 cm PA V2 max: 100.9 cm/sec TR max boy: 232.7 cm/sec TR max P.7 mmHg ECHO/Echo Complete W/ Contrast Interpretation Summary The estimated ejection fraction is 60 %. Septal flattening with inspiration. Mild concentric left ventricular hypertrophy. Mildly dilated right ventricle. Mild global right ventricular systolic dysfunction. The inferior vena cava is dilated Echogenic pericardium. Trivial pericardial effusion. Physiology consistent with constrictive pericarditis. Recommendation; Patient will require further evaluation with cardiac MRI Left and right heart catheterization Referral to tertiary cardiac center to evaluate for pericardiectomy. Contrast i njection was performed. There is no comparison study available. Ordering Physician: Qi Narayan Referring Physician: Lydia Galo Performed By: Stefanie Parker RDCS, RVT
--- NOTE | 2023-08-15 22:58 | EKG12_ITS ---
Test Reason : CP ADMIT Blood Pressure : / mmHG Vent. Rate : 116 BPM Atrial Rate : 116 BPM P-R Int : 136 ms QRS Dur : 100 ms QT Int : 314 ms P-R-T Axes : 049 041 030 degrees QTc Int : 436 ms Sinus tachycardia Otherwise normal ECG Confirmed by Neymar Guan ([id number]), science editor TIMOTHY HOLLOWAY ([id number]) on 08/19/2023 6:56:04 AM Referred By: Confirmed By:Neymar Guan
[2023-08-15 23:07] LABS: Amphetamine Urine VISTA NEGATIVE (<1000 ng/mL); Barbiturate Urine VISTA NEGATIVE (< 200 ng/mL); Benzodiazepine Urine VISTA NEGATIVE (< 200 ng/mL); Cocaine Urine VISTA NEGATIVE (< 300 ng/mL); Ecstacy Urine VISTA NEGATIVE (< 500 ng/mL); Methadone Urine VISTA NEGATIVE (< 300 ng/mL); PCP Urine VISTA NEGATIVE (< 25 ng/mL); THC Urine VISTA NEGATIVE (< 50 ng/mL); Vista UDS pH Range 6
[2023-08-15 23:18] LABS: Troponin-I HS 15960 pg/mL (3.0-78.0)
[2023-08-15] MEDS: Pantoprazole Sodium 20 MG Tablet PO (23:43)
[2023-08-15] MEDS: proCHLORPERazine 10 MG/2 ML Vial 5 MG IV (23:44)
[2023-08-15] MEDS: 0.9% Normal Saline (1000mL) 1,000 ML 125 ML IV (23:45)
[2023-08-15] MEDS: HEPARIN/D5w 25,000 UNITS 25,000 UNITS/250 ML IV.SOLN. 18 UNITS CONT INF (23:53)
[2023-08-16] VITALS (12 sets, daily range): BP systolic 95–120; BP diastolic 62–83; PULSE 92–111; RESP 16–30; TEMP 36.9–39.2; O2SAT 89–100; BMI 41.6
[2023-08-16 00:03] LABS: Erythrocyte Sedimentation Rate 19 mm/hr (0-20)
[2023-08-16] MEDS: Acetaminophen 325 MG Tablet 650 MG PO ×2 (01:16→12:08)
--- NOTE | 2023-08-16 01:39 | PCM.RX.CS ---
Consult Antibiotic Management Pharmacy has been consulted to manage selected antibiotic: Vancomycin Type of Intervention Type of Consult: New start Labs Labs: Sodium 131 mmol/L (136-145) L 08/15/23 20:40 Potassium 3.6 mmol/L (3.5-5.1) 08/15/23 20:40 Chloride 98 mmol/L (98-107) 08/15/23 20:40 Carbon Dioxide 25.0 mmol/L (21.0-32.0) 08/15/23 20:40 Anion Gap 8 (5-15) 08/15/23 20:40 BUN 15 mg/dL (7-18) 08/15/23 20:40 Creatinine 1.15 mg/dL (0.70-1.30) 08/15/23 20:40 Est GFR (MDRD) Af Amer 94 mL/min (>60) 08/15/23 20:40 Est GFR (MDRD) Non-Af 78 mL/min (>60) 08/15/23 20:40 BUN/Creatinine Ratio 13.0 RATIO (10-20) 08/15/23 20:40 Glucose 104 mg/dL (74-106) 08/15/23 20:40 Dosing Weight Weight used for dosin.3 kg Estimated Creatinine Clearance Estimated Creatinine Clearance: 132 Goal Trough Goal Trough: 15-20 mcg/mL Pharmacy Plan for Drug Dosing Pharmacy Plan for Drug Dosing: Pharmacy Service will continue to monitor and adjust dosing as required. 2GM GIVEN IN ER, GIVE 1500MG Q8H AND DRAW TROUGH PRIOR TO 4TH DOSE Follow-Up Labs Follow-Up Labs: Trough: Vancomycin Date/Time Labs Ordered Labs to be done on [date and time ordered]: 08/15 @ 2200
[2023-08-16 04:03] LABS: Troponin-I HS 17830 pg/mL (3.0-78.0)
[2023-08-16] MEDS: 0.9% Saline Lock 10 ML Syringe IV ×6 (04:53→15:35)
[2023-08-16] MEDS: Ketorolac 15 MG/ML Vial IV ×2 (04:54→15:35)
[2023-08-16 05:11] LABS: Partial Thromboplast Time 43.3 Seconds (24.1-36.2)
[2023-08-16] MEDS: Heparin Injection (Vial) 5,000 UNIT/ML VIAL IV (05:32)
[2023-08-16] MEDS: Vancomycin HCl 1,500 MG in 0.9% Normal Saline (500mL Bag) 500 ML 250 MG IV (06:08)
[2023-08-16] MEDS: 0.9% Normal Saline (1000mL) 1,000 ML 125 ML IV (06:41)
[2023-08-16 07:07] LABS: Absolute Lymphocyte Count 0.83 X10^3/uL (0.83-4.51); Absolute Neutrophil Count 7.8 X10^3/uL (2.0-7.7); Basophil# 0.02 X10^3/uL; Basophil% 0.2 % (0-1); Hematocrit 35.9 % (40-54); Hemoglobin 11.9 g/dL (13.0-16.5); Lymphocyte # 0.83 X10^3/ul (0.83-4.51); Lymphocyte % 8.9 % (19-41); Mean Corp Hgb Conc 33.1 g/dL (32-36); Mean Corpuscular Hgb 28.6 pg (27.0-32.0); Mean Corpuscular Volume 86.3 fL (80-94); Mean Platelet Vol. 11.6 fl (6.2-12.0); Monocyte# 0.65 X10^3/uL; Monocyte% 6.9 % (0-10); NRBC Flagged by Analyzer 0 % (0-5); Neutrophil # 7.83 X10^3/uL (2.7-7.7); Neutrophil % 83.7 % (47-70); POSITIVE COUNT YES; Platelet Count 87 K/mm3 (150-450); RBC Distribution Width CV 13.2 % (11.6-14.6); RBC Distribution Width SD 41.2 fl (35.1-43.9); Red Blood Count 4.16 M/mm3 (4.6-6.2); White Blood Count 9.4 K/mm3 (4.4-11.0)
[2023-08-16 07:28] LABS: ALB/GLOB Ratio 0.8 RATIO (0.9-2.4); AST(SGOT) 173 U/L (15-37); Alanine Aminotransfer ALT/SGPT 73 U/L (16-61); Albumin, Serum 2.8 g/dL (3.2-5.0); Alkaline Phosphatase 53 U/L (45-117); Anion Gap 7 (5-15); BUN 14 mg/dL (7-18); BUN/Creat Ratio 13.7 RATIO (10-20); Calcium,Total 7.7 mg/dL (8.5-10.1); Chloride 101 mmol/L (98-107); Cholesterol 91 mg/dL (200); Creatinine, Serum 1.02 mg/dL (0.70-1.30); EST Glomerular Filtration Rate 89 mL/min (>60); Est Glom Filt Rate - Afr Amer 108 mL/min (>60); Estimated Creatinine Clearance 149.02 ml/min; Globulin 3.4 g/dL (2.2-4.2); Glucose 113 mg/dL (74-106); High Density Lipoprotein 11 mg/dL; Potassium 3.1 mmol/L (3.5-5.1); Protein, Total 6.2 g/dL (6.4-8.2); Sodium Level 131 mmol/L (136-145); Triglycerides 194 mg/dL; Very Low Density Lipoprotein 39 mg/dL (5-40)
[2023-08-16 07:48] LABS: Troponin-I HS 18707 pg/mL (3.0-78.0)
[2023-08-16] MEDS: Pantoprazole Sodium 20 MG Tablet PO (08:21)
[2023-08-16] MEDS: Aspirin E.C. 81 MG Tablet PO (08:21)
[2023-08-16] MEDS: 0.9% Normal Saline (250mL Bag) 250 ML 15 ML IV (10:00)
--- NOTE | 2023-08-16 11:31 | CASEMGMT ---
Patient does not have advance directives and is not interested in documents. Daniela Horn [employer]
--- NOTE | 2023-08-16 12:46 | CON.PCM.CA_ITS ---
Assessment & Plan Assessment/Plan (1) Pericarditis: (2) Elevated troponin: (3) Myocardiopathy: PLAN: Plan Feel that pt should be transferred to a tertiary care center for further evaluation. He will likely need a cardiac MRI, Left and right heart catheterization and a possible pericardiectomy. HPI Consult Data Date of Consult: 08/16/23 HPI Narrative HPI Narrative: TONIA NOGUERA, is a 33 M who presented to [facility] ER on 08/15/23 with Fever, chills, N/V/D that started 2-3 days ago. He was in the ER on 08/14/23 and was given Zofran. He presented today with chest pain that radiated to his left arm and jaw. EKG demonstrated sinus tach with slight ST elevations in V2/V3. Troponins trended 9930/32545/33880/85049. Pt was admitted with concerns of Acute Myopericarditis with concerns of bacteremia. Of note he does have a hx of pericarditis and myocardiopathy with recent illness. [facility] Medical History Depression Myocardiopathy Migraine Hyperlipidemia Fracture of neck Anxiety Hypertension Pericarditis GI bleed Myocardial infarct Allergy/AdvReac Type Severity Reaction Status Date / Time Penicillins Allergy Anaphylaxis Verified 08/15/23 23:10 Family History Grandmother Myocardial infarction Diabetes Seizures Grandfather CVA (cerebral vascular accident) Myocardial infarction Colon cancer Uncle Schizophrenia Aunt Schizophrenia Surgical History History of tonsillectomy Social History household members: spouse and children Smoking Status: Former smoker Electronic Cigarette Use: with nicotine how long ago did patient quit smoking: Quit cigarette tobacco 2-3 yrs prior (03/21 ppd)->transition to vaping. alcohol intake: never substance use type: does not use ROS ROS Narrative CONSTITUTIONAL: No weight loss, + fever, chills, weakness or fatigue. HEENT: + Mild dizziness. Eyes: No visual loss, blurred vision, double vision or yellow sclerae. Ears, Nose, Throat: No hearing loss, sneezing, congestion, runny nose or sore throat. CARDIOVASCULAR: + Chest pain, mild dizziness. No palpitations, edema, orthopnea, syncopal events. RESPIRATORY: No shortness of breath, cough or sputum, wheezing, hemoptysis. GASTROINTESTINAL: + anorexia, nausea, vomiting, diarrhea, abdominal pain. No melena, BRBPR. GENITOURINARY: No dysuria, frequency, urgency or retention. NEUROLOGICAL: + Mild dizziness. No headache, syncope, paralysis, ataxia, numbness or tingling in the extremities, focal weakness, change in bowel or bladder control, seizure. MUSCULOSKELETAL: No muscle, back pain, joint pain or stiffness. HEMATOLOGIC: No anemia, bleeding or bruising. LYMPHATICS: No enlarged nodes. No history of splenectomy. PSYCHIATRIC: + History of Schizoaffective disorder/Borderline personality disorder/Anxiety and Depression. ENDOCRINOLOGIC: + reports of sweating, cold or heat intolerance. No polyuria or polydipsia. Risk Stratification Risk Stratification Applicable: Yes Age >/= 65: No >/= 3 CAD Risk Factors (HTN, HLD, DM, family hx of CAD, or current smoker): No Aspirin Use in the Past 7 Days: No Severe Angina (>/= episodes in 24 hours): Yes EKG ST Changes >/= 0.5mm: Yes Positive Cardiac Marker: Yes ANDRES Risk Stratification Score: 3 ANDRES % Risk: 13% Risk Charges/Coding Visit Charges Office Visits / Consults: [id number] IP Consult L3 Objective Data Vital Signs: Vital Signs Temp Pulse Resp BP Pulse Ox O2 Del Method O2 Flow Rate 102.2 F H 92 16 113/72 99 Nasal Cannula 2 08/16/23 12:00 08/16/23 08:14 08/16/23 08:14 08/16/23 08:14 08/16/23 08:14 08/16/23 08:24 08/16/23 08:24 Oxygen Flow Rate (L/min) 2 Oxygen Delivery Method Nasal Cannula Weight: 306 lb 7.08 oz Body Mass Index (BMI) 41.6 Intake & Output: Intake and Output for Last 24 Hours 08/14/23 08/15/23 08/16/23 23:59 23:59 23:59 Intake Total 1019.00 / 1819.00 2838.67 / 2838.67 Balance 1019.00 / 1819.00 2838.67 / 2838.67 Lab / Micro Data 08/16/23 06:42 08/16/23 06:42 Labs: Laboratory Results - last 24 hr 08/15/23 20:40: WBC 8.1, RBC 4.70, Hgb 13.4, Hct 40.6, MCV 86.4, MCH 28.5, MCHC 33.0, RDW Std Deviation 41.2, RDW Coeff of Kylie 13.0, Plt Count 101 L, MPV 11.2, Immature Gran % (Auto) 0.400, Neut % (Auto) 84.6 H, Lymph % (Auto) 8.0 L, [place]ahan % (Auto) 6.8, Eos % (Auto) 0.0, Baso % (Auto) 0.2, Absolute Neuts (auto) 6.8, A bsolute Lymphs (auto) 0.65 L, Nucleated RBC % 0, ESR 19, Sodium 131 L, Potassium 3.6, Chloride 98, Carbon Dioxide 25.0, Anion Gap 8, BUN 15, Creatinine 1.15, Estim Creat Clear Calc 132.36, Est GFR (MDRD) Af Amer 94, Est GFR (MDRD) Non-Af 78, BUN/Creatinine Ratio 13.0, Glucose 104, Calcium 8.3 L, Total Bilirubin 0.80, AST 105 H, ALT 63 H, Alkaline Phosphatase 58, Troponin I High Sens 9930 H*, Total Protein 7.2, Albumin 3.3, Globulin 3.9, Albumin/Globulin Ratio 0.8 L 08/15/23 21:11: Lactic Acid 0.9 08/15/23 21:50: PT 15.6 H, INR 1.2, APTT 32.0 08/15/23 22:37: Magnesium 2.0, Troponin I High Sens 92264 H*, C-React Prot Ext Range 229.00 H, Urine Opiates Screen NEGATIVE, Urine Methadone Screen NEGATIVE, Ur Barbiturates Screen NEGATIVE, Ur Phencyclidine Scrn NEGATIVE, Ur Amphetamines Screen NEGATIVE, MDMA (Ecstasy) Screen NEGATIVE, U Benzodiazepines Scrn NEGATIVE, Urine Cocaine Screen NEGATIVE, U Cannabinoids Screen NEGATIVE, Ur Drug Screen Comment 08/16/23 02:39: Troponin I [place] Sens 27019 H* 08/16/23 04:40: APTT 43.3 H 08/16/23 06:42: WBC 9.4, RBC 4.16 L, Hgb 11.9 L, Hct 35.9 L, MCV 86.3, MCH 28.6, MCHC 33.1, RDW Std Deviation 41.2, RDW Coeff of Kylie 13.2, Plt Count 87 L, MPV 11.6, Immature Gran % (Auto) 0.300, Neut % (Auto) 83.7 H, Lymph % (Auto) 8.9 L, [place] % (Auto) 6.9, Eos % (Auto) 0.0, Baso % (Auto) 0.2, Absolute Neuts (auto) 7.8 H, Absolute Lymphs (auto) 0.83, Nucleated RBC % 0, Sodium 131 L, Potassium 3.1 L, Chloride 101, Carbon Dioxide 23.0, Anion Gap 7, BUN 14, Creatinine 1.02, Estim Creat Clear Calc 149.02, Est GFR (MDRD) Af Amer 108, Est GFR (MDRD) Non-Af 89, BUN/Creatinine Ratio 13.7, Glucose 113 H, Calcium 7.7 L, Total Bilirubin 0.70, AST 173 H, ALT 73 H, Alkaline Phosphatase 53, Troponin I High Sens 00671 H*, Total Protein 6.2 L, Albumin 2.8 L, Globulin 3.4, Albumin/Globulin Ratio 0.8 L, Triglycerides 194, Cholesterol 91, LDL Cholesterol 41, VLDL Cholesterol 39, H DL Cholesterol 11 L Micro: Microbiology 08/15/23 23:30 Mucosa - Nasopharyngeal Respiratory Panel (PCR) - Final Cardiology Labs/Tests 08/15/23 20:40: WBC 8.1, RBC 4.70, Hgb 13.4, Hct 40.6, MCV 86.4, MCH 28.5, MCHC 33.0, Plt Count 101 L, MPV 11.2, Immature Gran % (Auto) 0.400, Neut % (Auto) 84.6 H, Lymph % (Auto) 8.0 L, [place] % (Auto) 6.8, Eos % (Auto) 0.0, Baso % (Auto) 0.2, Absolute Neuts (auto) 6.8, Nucleated RBC % 0, Sodium 131 L, Potassium 3.6, Chloride 98, Carbon Dioxide 25.0, Anion Gap 8, BUN 15, Creatinine 1.15, Est GFR (MDRD) Af Amer 94, Est GFR (MDRD) Non-Af 78, BUN/Creatinine Ratio 13.0, Glucose 104, Calcium 8.3 L, Total Bilirubin 0.80 08/15/23 21:11: Lactic Acid 0.9 08/15/23 21:50: PT 15.6 H, INR 1.2, APTT 32.0 08/15/23 22:37: Magnesium 2.0 08/16/23 04:40: APTT 43.3 H 08/16/23 06:42: WBC 9.4, RBC 4.16 L, Hgb 11.9 L, Hct 35.9 L, MCV 86.3, MCH 28.6, MCHC 33.1, Plt Count 87 L, MPV 11.6, Immature Gran % (Auto) 0.300, Neut % (Auto) 83.7 H, Lymph % (Auto) 8.9 L, [place] % (Auto) 6.9, Eos % (Auto) 0.0, Baso % (Auto) 0.2, Absolute Neuts (auto) 7.8 H, Nucleated RBC % 0, Sodium 131 L, Potassium 3.1 L, Chloride 101, Carbon Dioxide 23.0, Anion Gap 7, BUN 14, Creatinine 1.02, Est GFR (MDRD) Af Amer 108, Est GFR (MDRD) Non-Af 89, BUN/Creatinine Ratio 13.7, G lucose 113 H, Calcium 7.7 L, Total Bilirubin 0.70, Triglycerides 194, Cholesterol 91, LDL Cholesterol 41, VLDL Cholesterol 39, HDL Cholesterol 11 L Radiography Diagnostic Testing: Radiology Impression Chest X-Ray 08/15/23 20:20 IMPRESSION: No radiographic evidence of acute cardiopulmonary disease. Electronically Signed: Javier Otto MD at 20:52 EDT , Echocardiogram 08/15/23 22:56 Interpretation Summary The estimated ejection fraction is 60 %. Septal flattening with inspiration. Mild concentric left ventricular hypertrophy. Mildly dilated right ventricle. Mild global right ventricular systolic dysfunction. The inferior vena cava is dilated Echogenic pericardium. Trivial pericardial effusion. Physiology consistent with constrictive pericarditis. Recommendation; Patient will require further evaluation with cardiac MRI Left and right heart catheterization Referral to tertiary cardiac center to evaluate for pericardiectomy. Contrast injection was performed. There is no comparison study available. Ordering Physician: Qi Narayan Referring Physician: Lydia Galo Performed By: Stefanie Parker, JUAN, RVT
--- NOTE | 2023-08-16 12:47 | PCM.CONS.GEN ---
Assessment & Plan Assessment/Plan (1) Bacteremia: PLAN: MSSA bacteremia per pcr, unclear source; sx associated with several days fever, n/v/d. TTE shows constrictive pericarditis. Transfer to [facility] planned. Reports rash with PCN as a child, no issues with amoxicillin in the past. Will narrow vanc to cefazolin. Will check repeat bcx. Will follow, thank you (2) Pericarditis: HPI Consult Data Date of Consult: 08/16/23 HPI Narrative Reason for Consultation: bacteremia HPI Narrative: TONIA NOGUERA, is a 33 M with h/o obesity, schizoaffective disorder, recently started working at [employer]. Reports 2-3 days of fever, n/v/d, mild sore throat. No rash, abscess, skin infections. Yesterday had sudden onset severe L sided chest pain. No recent unusual foods, nothing that had sat out a long time, no sick contacts. Came to ED, had fever over 103, bcx sent, started on iv vanc. Bcx x2 now with mssa per pcr. Chest pain improved, n/v/d improved, still fever. No new joint or back pain. Full ROS performed and neg except as noted above. [facility] Medical History Depression Myocardiopathy Migraine Hyperlipidemia Fracture of neck Anxiety Hypertension Pericarditis GI bleed Myocardial infarct Allergy/AdvReac Type Severity Reaction Status Date / Time Penicillins Allergy Anaphylaxis Verified 08/15/23 23:10 Family History Grandmother Myocardial infarction Diabetes Seizures Grandfather CVA (cerebral vascular accident) Myocardial infarction Colon cancer Uncle Schizophrenia Aunt Schizophrenia Surgical History History of tonsillectomy Social History household members: spouse and children Smoking Status: Former smoker Electronic Cigarette Use: with nicotine how long ago did patient quit smoking: Quit cigarette tobacco 2-3 yrs prior (03/21 ppd)->transition to vaping. alcohol intake: never substance use type: does not use Physical Exam Const alert, oriented x3 and no apparent distress General Appearance: cooperative HEENT normocephalic and head/scalp atraumatic Eyes PERRL and EOMs intact bilaterally Neck supple and No nodes Resp normal air movement and clear to auscultation bilaterally Cardio no murmurs Rate: tachycardic GI soft to palpation, non-tender and non-distended Extremity General Extremity: edema Skin no rashes or lesions noted Skin Narrative: no splinter hemorrhages on hands or feet Neuro CN's II-XII intact bilaterally Lab / Micro Data Attestation: I reviewed the patient's lab results. 08/16/23 06:42 08/16/23 06:42 Labs: Laboratory Results - last 24 hr 08/15/23 20:40: WBC 8.1, RBC 4.70, Hgb 13.4, Hct 40.6, MCV 86.4, MCH 28.5, MCHC 33.0, RDW Std Deviation 41.2, RDW Coeff of Kylie 13.0, Plt Count 101 L, MPV 11.2, Immature Gran % (Auto) 0.400, Neut % (Auto) 84.6 H, Lymph % (Auto) 8.0 L, [place] % (Auto) 6.8, Eos % (Auto) 0.0, Baso % (Auto) 0.2, Absolute Neuts (auto) 6.8, Absolute Lymphs (auto) 0.65 L, Nucleated RBC % 0, ESR 19, Sodium 131 L, Potassium 3.6, Chloride 98, Carbon Dioxide 25.0, Anion Gap 8, BUN 15, Creatinine 1.15, Estim Creat Clear Calc 132.36, Est GFR (MDRD) Af Amer 94, Est GFR (MDRD) Non-Af 78, BUN/Creatinine Ratio 13.0, Glucose 104, Calcium 8.3 L, Total Bilirubin 0.80, AST 105 H, ALT 63 H, Alkaline Phosphatase 58, Troponin I High Sens 9930 H*, Total Protein 7.2, Albumin 3.3, Globulin 3.9, Albumin/Globulin Ratio 0.8 L 08/15/23 21:11: Lactic Acid 0.9 08/15/23 21:50: PT 15.6 H, INR 1.2, APTT 32.0 08/15/23 22:37: Magnesium 2.0, Troponin I High Sens 66001 H*, C-React Prot Ext Range 229.00 H, Urine Opiates Screen NEGATIVE, Urine Methadone Screen NEGATIVE, Ur Barbiturates Screen NEGATIVE, Ur Phencyclidine Scrn NEGATIVE, Ur Amphetamines Screen NEGATIVE, MDMA (Ecstasy) Screen NEGATIVE, U Benzodiazepines Scrn NEGATIVE, Urine Cocaine Screen NEGATIVE, U Cannabinoids Screen NEGATIVE, Ur Drug Screen Comment 08/16/23 02:39: Troponin I High Sens 30563 H* 08/16/23 04:40: APTT 43.3 H 08/16/23 06:42: WBC 9.4, RBC 4.16 L, Hgb 11.9 L, Hct 35.9 L, MCV 86.3, MCH 28.6, MCHC 33.1, RDW Std Deviation 41.2, RDW Coeff of Kylie 13.2, Plt Count 87 L, MPV 11.6, Immature Gran % (Auto) 0.300, Neut % (Auto) 83.7 H, Lymph % (Auto) 8.9 L, [place] % (Auto) 6.9, Eos % (Auto) 0.0, Baso % (Auto) 0.2, Absolute Neuts (auto) 7.8 H, Absolute Lymphs (auto) 0.83, Nucleated RBC % 0, Sodium 131 L, Potassium 3.1 L, Chloride 101, Carbon Dioxide 23.0, Anion Gap 7, BUN 14, Creatinine 1.02, Estim Creat Clear Calc 149.02, Est GFR (MDRD) Af Amer 108, Est GFR (MDRD) Non-Af 89, BUN/Creatinine Ratio 13.7, Glucose 113 H, Calcium 7.7 L, Total Bilirubin 0.70, AST 173 H, ALT 73 H, Alkaline Phosphatase 53, Troponin I High Sens 14197 H*, Total Protein 6.2 L, Albumin 2.8 L, Globulin 3.4, Albumin/Globulin Ratio 0.8 L, Triglycerides 194, Cholesterol 91, LDL Cholesterol 41, VLDL Cholesterol 39, HDL Cholesterol 11 L Micro: Microbiology 08/15/23 23:30 Mucosa - Nasopharyngeal Respiratory Panel (PCR) - Final Imaging Radiology Impression Chest X-Ray 08/15/23 20:20 IMPRESSION: No radiographic evidence of acute cardiopulmonary disease. Electronically Signed: Javier Otto MD at 20:52 EDT , Echocardiogram 08/15/23 22:56 Interpretation Summary The estimated ejection fraction is 60 %. Septal flattening with inspiration. Mild concentric left ventricular hypertrophy. Mildly dilated right ventricle. Mild global right ventricular systolic dysfunction. The inferior vena cava is dilated Echogenic pericardium. Trivial pericardial effusion. Physiology consistent with constrictive pericarditis. Recommendation; Patient will require further evaluation with cardiac MRI Left and right heart catheterization Referral to tertiary cardiac center to evaluate for pericardiectomy. Contrast injection was performed. There is no comparison study available. Ordering Physician: Qi Narayan Referring Physician: Lydia Galo Performed By: Stefanie Parker, JUAN, RVT
[2023-08-16 13:10] LABS: Partial Thromboplast Time 60.8 Seconds (24.1-36.2)
[2023-08-16] MEDS: Cefazolin 2 GM in 0.9% Normal Saline (100mL Bag) 100 ML IV (13:58)
--- NOTE | 2023-08-16 14:28 | DS.PCM_ITS ---
Providers Date of Admission: 08/15/23 Date of Discharge: 08/16/23 Primary Care Physician: Dr. Lydia Galo MD Consultations 08/15/23 22:54 Consult: Cardiology Routine Consulting Provider: Tiana Foster Reason for Consult: Elevated trop, suspected myopericarditis EMERGENT Consult: No MD Notified: Yes Date Notified: 08/15/23 Time Notified: 22:56 Method of Notification: ED Physician Initiated Consult: Infectious Disease Routine Consulting Provider: Herson White Reason for Consult: GPC bacteremia, Suspected Myopericarditis, Recent Gastro type illness. EMERGENT Consult: No Notified: Yes Date Notified: 08/16/23 Time Notified: 05:52 Method of Notification: Answering Service Reason For Visit: MYOPERICARDITIS SUSPECTED, ELECATED TROP, Diagnosis Discharge Diagnosis (1) Pericarditis: Status: Acute Code(s): I31.9 - Disease of pericardium, unspecified (2) Elevated troponin: Status: Acute Code(s): R79.89 - Other specified abnormal findings of blood chemistry (3) Myocardiopathy: Status: Acute Code(s): I42.9 - Cardiomyopathy, unspecified (4) Bacteremia: Status: Acute Code(s): R78.81 - Bacteremia Plan 1. Myopericarditis #2 Staph aureus bacteremia #3 elevated troponin secondary to myopericarditis #4 schizoaffective disorder #5 morbid obesity Hospital Course Operations None Procedures 2-D Echocardiogram Summary of Care Provided Minutes Spent on Discharge: 32 Hospital Course: This 33-year-old white male was seen in the emergency room at [facility] with complaints of chest pain, he had been seen a few days earlier in the emergency room with complaints of nausea vomiting and diarrhea, blood culture obtained at that time eventually grew out Staph aureus. Labs performed in the emergency room showed a normal white blood cell count, CHEM profile was unremarkable, patient's troponin was elevated at 9930. Chest x-ray showed no evidence of acute cardiopulmonary disease. Patient was admitted to PCU, he was started on IV antibiotics and seen in consultation by infectious diseases and cardiology. Patient underwent an echocardiogram which showed a normal ejection fraction. Patient's family approached me about transfer to a tertiary facility, I may contact with [facility] and they had a bed available to take the patient for further care. On 08/16/2023, patient was seen and examined: On examination he appeared in good health and spirits. Vital signs as documented. Skin warm and dry and without overt rashes. Neck without JVD, neck was supple, trachea midline, thyroid was normal. Lungs clear bilaterally, normal air movement was noted. Heart exam notable for regular rhythm, normal sounds and absence of murmurs, rubs or gallops. Abdomen unremarkable and without evidence of organomegaly, masses, or abdominal aortic enlargement. Bowel sounds are present, abdomen is not distended. Extremities nonedematous, no cyanosis was noted, no clubbing was noted. Neuro: Cranial nerves II through XII are grossly intact, no focal motor deficits were noted, sensation to light touch and pinprick intact, motor exam 5/5 throughout. Psych: Patient is alert and oriented x3, he does not appear anxious or depressed, he does not appear agitated. On 08/16/2023, patient was seen and examined and felt to be in stable condition for transfer to a tertiary facility for further care. Weight / BMI Weight Weight: 139 kg Body Mass Index (BMI) 41.6 ABG / Lab / Microbiology Data 08/16/23 06:42 08/16/23 06:42 Laboratory: Laboratory Results - last 24 hr 08/15/23 20:40: WBC 8.1, RBC 4.70, Hgb 13.4, Hct 40.6, MCV 86.4, MCH 28.5, MCHC 33.0, RDW Std Deviation 41.2, RDW Coeff of Kylie 13.0, Plt Count 101 L, MPV 11.2, Immature Gran % (Auto) 0.400, Neut % (Auto) 84.6 H, Lymph % (Auto) 8.0 L, [place] % (Auto) 6.8, Eos % (Auto) 0.0, Baso % (Auto) 0.2, Absolute Neuts (auto) 6.8, A bsolute Lymphs (auto) 0.65 L, Nucleated RBC % 0, ESR 19, Sodium 131 L, Potassium 3.6, Chloride 98, Carbon Dioxide 25.0, Anion Gap 8, BUN 15, Creatinine 1.15, Estim Creat Clear Calc 132.36, Est GFR (MDRD) Af Amer 94, Est GFR (MDRD) Non-Af 78, BUN/Creatinine Ratio 13.0, Glucose 104, Calcium 8.3 L, Total Bilirubin 0.80, AST 105 H, ALT 63 H, Alkaline Phosphatase 58, Troponin I High Sens 9930 H*, Total Protein 7.2, Albumin 3.3, Globulin 3.9, Albumin/Globulin Ratio 0.8 L 08/15/23 21:11: Lactic Acid 0.9 08/15/23 21:50: PT 15.6 H, INR 1.2, APTT 32.0 08/15/23 22:37: Magnesium 2.0, Troponin I High Sens 45064 H*, C-React Prot Ext Range 229.00 H, Urine Opiates Screen NEGATIVE, Urine Methadone Screen NEGATIVE, Ur Barbiturates Screen NEGATIVE, Ur Phencyclidine Scrn NEGATIVE, Ur Amphetamines Screen NEGATIVE, MDMA (Ecstasy) Screen NEGATIVE, U Benzodiazepines Scrn NEGATIVE, Urine Cocaine Screen NEGATIVE, U Cannabinoids Screen NEGATIVE, Ur Drug Screen Comment 08/16/23 02:39: Troponin I High Sens [id number] H* 08/16/23 04:40: APTT 43.3 H 08/16/23 06:42: WBC 9.4, RBC 4.16 L, Hgb 11.9 L, Hct 35.9 L, MCV 86.3, MCH 28.6, MCHC 33.1, RDW Std Deviation 41.2, RDW Coeff of Kylie 13.2, Plt Count 87 L, MPV 11.6, Immature Gran % (Auto) 0.300, Neut % (Auto) 83.7 H, Lymph % (Auto) 8.9 L, [place] % (Auto) 6.9, Eos % (Auto) 0.0, Baso % (Auto) 0.2, Absolute Neuts (auto) 7.8 H, Absolute Lymphs (auto) 0.83, Nucleated RBC % 0, Sodium 131 L, Potassium 3.1 L, Chloride 101, Carbon Dioxide 23.0, Anion Gap 7, BUN 14, Creatinine 1.02, Estim Creat Clear Calc 149.02, Est GFR (MDRD) Af Amer 108, Est GFR (MDRD) Non-Af 89, BUN/Creatinine Ratio 13.7, Glucose 113 H, Calcium 7.7 L, Total Bilirubin 0.70, AST 173 H, ALT 73 H, Alkaline Phosphatase 53, Troponin I High Sens 68195 H*, Total Protein 6.2 L, Albumin 2.8 L, Globulin 3.4, Albumin/Globulin Ratio 0.8 L, Triglycerides 194, Cholesterol 91, LDL Cholesterol 41, VLDL Cholesterol 39, H DL Cholesterol 11 L 08/16/23 12:50: APTT 60.8 H Microbiology: Microbiology 08/16/23 12:10 Stool Clostridioides difficile (PCR) - Final 08/15/23 23:30 Mucosa - Nasopharyngeal Respiratory Panel (PCR) - Final Radiography Diagnostic Testing: Radiology Impression Chest X-Ray 08/15/23 20:20 IMPRESSION: No radiographic evidence of acute cardiopulmonary disease. Electronically Signed: Javier Otto MD at 20:52 EDT Reading Location ID and State: [facility] / [place] Tel , Service support , Echocardiogram 08/15/23 22:56 Interpretation Summary The estimated ejection fraction is 60 %. Septal flattening with inspiration. Mild concentric left ventricular hypertrophy. Mildly dilated right ventricle. Mild global right ventricular systolic dysfunction. The inferior vena cava is dilated Echogenic pericardium. Trivial pericardial effusion. Physiology consistent with constrictive pericarditis. Recommendation; Patient will require further evaluation with cardiac MRI Left and right heart catheterization Referral to tertiary cardiac center to evaluate for pericardiectomy. Contrast injection was performed. There is no comparison study available. Ordering Physician: Qi Narayan Referring Physician: Lydia Galo Performed By: Stefanie Parker, JUAN, RVT Meaningful Use Info Meaningful Use Meaningful Use Diagnoses (Choose all that apply): None applicable Ischemic Stroke Statin Dosing Therapy Reference: STATIN DOSE THERAPY REFERENCE: * Patients > 75 years receive moderate or high dose statin therapy. * Patients 75 years or YOUNGER should receive HIGH intensity statin dose unless contraindicated. You will be required to document reason for non-treatment if statin daily dose does not meet guidelines. HIGH DOSE STATIN THERAPY DAILY Atorvastatin > than or = to 40 mg Rosuvastatin > than or = to 20 mg Amlodipine + Atorvastatin > than or = to 2.5/40 mg Ezetimibe + Simvastatin 10/80 mg Simvastatin 80mg Discharge Plan Admission Admit Date/Time: 08/15/23 22:14 Attending Provider: Mumtaz Blum Primary Care Provider: Lydia Galo Consulting Providers: Tiana Foster; Herson White; Qi Narayan Discharge Orders/Prescriptions Referrals / Follow Up: Lydia Galo MD [Primary Care Provider] - Disposition Discharge Orders: Discharge Patient (Routine); Ordered 08/16/23 Ordered By: Dr. Mumtaz Blum Charges/Coding Visit Charges Inpatient E&M: 77240 Disch Hosp >30min
[2023-08-16] MEDS: Enoxaparin 40 MG/0.4 ML Syringe SC (15:28)
--- NOTE | 2023-08-16 16:53 | NURSING ---
Report called to CLAUDY Hamlin at [facility].
== END 2023-08-16 19:10 | disposition short-term general hospital (02) | DRG 314 ==
LOC: ED 22:07 → PCU 22:17
PROVIDERS: Physician Assistant; Admitting Provider Family Medicine; Emergency Provider Emergency Medicine; Visit Provider Internal Medicine
DX: I30.9 Acute pericarditis, unspecified (principal); A41.9 Sepsis, unspecified organism; Z68.41 Body mass index [BMI] 40.0-44.9, adult; E66.01 Morbid (severe) obesity due to excess calories; F60.3 Borderline personality disorder; I10 Essential (primary) hypertension; E78.5 Hyperlipidemia, unspecified; K21.9 Gastro-esophageal reflux disease without esophagitis; R11.2 Nausea with vomiting, unspecified; R19.7 Diarrhea, unspecified; F17.290 Nicotine dependence, other tobacco product, uncomplicated; I25.2 Old myocardial infarction; B95.61 Methicillin susceptible Staphylococcus aureus infection as the cause of diseases classified elsewhere; R00.0 Tachycardia, unspecified
CPT/HCPCS: 36415; 71045; 74177; 80053; 80061; 80307; 81001; 83605; 83735; 84484; 85025; 85610; 85652; 85730; 86140; 87040; 87077; 87086; 87149; 87186; 87493; 87506; 87631; 87633; 93005; 93306; 94668; 99285; J7030; J7040; J7050; Q9957; Q9967; A4216; C8929; J2405

== ENCOUNTER 2024-01-17 19:54 | Emergency (ER) | payer MEDICARE, MEDICAID, SELFPAY ==
[2024-01-17 19:55] VITALS: BP 172/115; PULSE 85; RESP 18; TEMP 36.4; O2SAT 97; BMI 43.2
--- NOTE | 2024-01-17 20:06 | EKG12_ITS ---
Test Reason : SOB/CP Blood Pressure : */* mmHG Vent. Rate : 76 BPM Atrial Rate : 76 BPM P-R Int : 150 ms QRS Dur : 112 ms QT Int : 388 ms P-R-T Axes : 38 55 51 degrees QTcB Int : 436 ms Normal sinus rhythm Normal ECG Confirmed by BETTY KHALIL, PREETI ([id number]), make up editor TIMOTHY HOLLOWAY ([id number]) on 01/20/2024 9:40:11 AM Referred By: Rimma Carcamo Confirmed By: PREETI HERNÁNDEZ MD
[2024-01-17 20:22] LABS: Absolute Lymphocyte Count 2.04 X10^3/uL (0.83-4.51); Absolute Neutrophil Count 4.8 X10^3/uL (2.0-7.7); Basophil# 0.05 X10^3/uL; Basophil% 0.7 % (0-1); Eosinophil# 0.17 X10^3/uL; Eosinophils% 2.2 % (0-5); Hematocrit 42.1 % (40-54); Hemoglobin 14.2 g/dL (13.0-16.5); Lymphocyte # 2.04 X10^3/ul (0.83-4.51); Lymphocyte % 26.8 % (19-41); Mean Corp Hgb Conc 33.7 g/dL (32-36); Mean Corpuscular Hgb 28.4 pg (27.0-32.0); Mean Corpuscular Volume 84.2 fL (80-94); Monocyte# 0.47 X10^3/uL; Monocyte% 6.2 % (0-10); NRBC Flagged by Analyzer 0 % (0-5); Neutrophil # 4.79 X10^3/uL (2.7-7.7); Neutrophil % 62.8 % (47-70); Platelet Count 264 K/mm3 (150-450); RBC Distribution Width CV 13.1 % (11.6-14.6); RBC Distribution Width SD 39.7 fl (35.1-43.9); White Blood Count 7.6 K/mm3 (4.4-11.0)
[2024-01-17 20:23] VITALS: O2SAT 98
--- NOTE | 2024-01-17 20:30 | RAD_ITS ---
EXAM: XR CHEST, 1 VIEW CLINICAL INDICATION: chest pain TECHNIQUE: Frontal view of the chest. COMPARISON: 08/15/2023 FINDINGS: LUNGS AND PLEURAL SPACES: No significant abnormality. No consolidation or edema. No pneumothorax. No effusion. HEART: No significant abnormality. Cardiac silhouette not enlarged. MEDIASTINUM: Central airways and mediastinal contour are unremarkable. BONES/JOINTS: No significant abnormality. No acute fracture. SOFT TISSUES: No significant abnormality. RAD/Chest 1 View (Portable) IMPRESSION: No radiographic evidence of acute cardiopulmonary disease. Electronically Signed: Amilcar Field DO at 21:04 EDT ,
[2024-01-17 20:41] LABS: Anion Gap 5 (5-15); BUN 13 mg/dL (7-18); BUN/Creat Ratio 12.4 RATIO (10-20); Calcium,Total 8.6 mg/dL (8.5-10.1); Chloride 109 mmol/L (98-107); Creatinine, Serum 1.05 mg/dL (0.70-1.30); EST Glomerular Filtration Rate 86 mL/min (>60); Est Glom Filt Rate - Afr Amer 104 mL/min (>60); Estimated Creatinine Clearance 147.82 ml/min; Glucose 153 mg/dL (74-106); Potassium 3.6 mmol/L (3.5-5.1); Sodium Level 140 mmol/L (136-145); Troponin-I HS (w/2H Reflex) 4 pg/mL (3.0-78.0)
[2024-01-17 20:46] LABS: Prothrombin Time (Protime)PT. 13.4 SECONDS (11.7-14.9)
[2024-01-17 20:55] VITALS: BP 138/90; PULSE 71; RESP 16; O2SAT 98
[2024-01-17 21:00] VITALS: BP 138/90; PULSE 74; RESP 16; O2SAT 98
[2024-01-17 22:00] VITALS: BP 152/97; PULSE 78; RESP 14; O2SAT 96
[2024-01-17 22:18] LABS: Reflex Troponin-HS? (from REC) Y
[2024-01-17] MEDS: Ondansetron 4 MG/2 ML Vial IV (22:50)
[2024-01-17] MEDS: Ketorolac 15 MG/ML Vial IV (22:52)
[2024-01-17 22:54] LABS: D-Dimer Quantitative (DVT/PE) 0.34 FEU/ug/m (0.27-0.49)
[2024-01-17 22:57] LABS: CRP 6.06 mg/L (0.0-3.0); Lipase 20 U/L (13-75); Troponin-I HS 4 pg/mL (3.0-78.0)
[2024-01-17 23:00] VITALS: BP 150/94; PULSE 80; RESP 20; O2SAT 97
[2024-01-17 23:03] LABS: BNP,B-Type NATRIURETIC PEPTIDE 4.5 pg/mL (0-100)
--- NOTE | 2024-01-17 23:29 | ED.VIS.CHEST ---
HPI History of Present Illness Chief Complaint: Chest Pain Informant: patient Narrative Narrative: Patient is a 33-year-old male with history of staff aureus bacteremia, NSTEMI, schizoaffective disorder, hypertension, GERD and anxiety/depression as well as myopericarditis in 2014 and recent admission in August of this year for Staphylococcus positive blood cultures and possible pericarditis that was treated with IV vancomycin. Patient transferred to [facility], he had a TTE concerning for restrictive pericarditis but AWA showed no evidence of valvular vegetation or constrictive pericarditis. He was started on colchicine and ibuprofen and was on long-term antibiotics per ID. Patient states he never followed up with anyone. He states this was a follow-up with [facility]ipper through [facility]. He does not take any medications on a daily basis. He is presenting today for couple weeks of swelling of his abdomen and hands. Notes has had some intermittent mild chest pain described as burning and squeezing. There is in the past 2 weeks he has been little short of breath and had a cough that is intermittently been productive. Denies any cause of his sputum. Denies any fever. Denies any swelling of his legs or his feet. Also notes that for the past 3 months he has had intermittent blood in his stool. Does have a significant family history of celiac's disease. Has not tried any gluten restrictive diet for this. Is worried he could have some type of autoimmune process. He has not seen a GI doctor before. Also notes that he has been having migraine headache for the past week or so. States he has a history of migraines intermittently will get visual aura. Denies any aura right now or acute vision changes. [facility] Medical History Depression Myocardiopathy Migraine Hyperlipidemia Fracture of neck Anxiety Hypertension Pericarditis GI bleed Myocardial infarct Home Medications ?Medication ?Instructions ?Recorded ?Last Taken ?Type NK 01/17/24 Unknown History amlodipine 5 mg tablet 5 mg PO DAILY #30 tabs 01/18/24 Unknown Rx doxycycline hyclate 100 mg tablet 100 mg PO BID #14 tabs 01/18/24 Unknown Rx Allergy/AdvReac Type Severity Reaction Status Date / Time Penicillins Allergy Anaphylaxis Verified 08/15/23 23:10 Family History Grandmother Myocardial infarction Diabetes Seizures Grandfather CVA (cerebral vascular accident) Myocardial infarction Colon cancer Uncle Schizophrenia Aunt Schizophrenia Surgical History History of tonsillectomy Social History household members: spouse and children Smoking Status: Former smoker Electronic Cigarette Use: with nicotine how long ago did patient quit smoking: Quit cigarette tobacco 2-3 yrs prior (03/21 ppd)->transition to vaping. alcohol intake: never substance use type: does not use ROS ROS ED Constitutional Constitutional ED: Reports chills; Denies fever(s) Eyes Eyes: Denies blurry vision or change in vision ENT ENT ED: Denies rhinorrhea or sore throat Cardiovascular Cardiovascular: Reports as per HPI and chest pain; Denies palpitations Respiratory/Chest Respiratory/Chest: Reports cough, dyspnea and sputum Gastrointestinal Gastrointestinal: Reports abdominal pain and other Details: rectal bleeding ; Denies constipation, diarrhea or vomiting Musculoskeletal Musculoskeletal: Reports myalgias Integumentary Denies rash Neurologic Neurologic: Reports headache(s); Denies paresthesias or weakness Psychiatric Psychiatric: Reports anxiety Hematologic/Lymphatic Hematologic/Lymphatic: Denies easy bleeding or easy bruising EXAM Physical Exam Const Vital Signs: 01/17/24 19:55 01/17/24 20:23 01/17/24 20:24 Temperature 97.5 F L Temperature Source Temporal Pulse Rate 85 Respiratory Rate 18 Respiratory Effort Normal Non-Labored Blood Pressure 172/115 H Blood Pressure Mean 134 Pulse Ox 97 98 Oxygen Delivery Method Room Air Room Air 01/17/24 20:55 01/17/24 21:00 01/17/24 22:00 Temperature Temperature Source Pulse Rate 71 74 78 Respiratory Rate 16 16 14 Respiratory Effort Blood Pressure 138/90 H 138/90 H 152/97 H Blood Pressure Mean 106 106 115 Pulse Ox 98 98 96 Oxygen Delivery Method Room Air Room Air Room Air 01/17/24 23:00 01/18/24 00:00 Temperature Temperature Source Pulse Rate 80 73 Respiratory Rate 20 H 20 H Respiratory Effort Blood Pressure 150/94 H 146/93 H Blood Pressure Mean 112 110 Pulse Ox 97 98 Oxygen Delivery Method Room Air Room Air Positive well nourished and well developed General Appearance ED: well developed and NAD HEENT Reports moist mucous membranes HEENT Narrative: Normal oropharynx, normal tympanic membranes bilaterally normocephalic and atraumatic Eyes PERRL and EOMs intact bilaterally General Eye ED: Negative for scleral icterus Neck supple and no JVD Chest Wall inspection of chest normal and palpation of chest normal Resp normal respiratory effort and clear to auscultation bilaterally Cardio regular rate, regular rhythm and no murmurs GI normal to inspection, nondistended, normoactive bowel sounds, soft to palpation, non-tender and no masses GI Narrative: No fluid wave appreciated Extremity normal to inspection General Extremety ED: Negative for edema General Extremity: Negative for edema Neuro oriented x3 Sensorium / Orientation: awake and alert Motor Exam: Negative for general weakness Psych mental status grossly normal Skin no rashes or lesions noted and no wounds Heart Score History: Slightly/Non-Suspicious ECG: Normal Age: </= 45 years Risk Factors: 1 or 2 Risk Factors Troponin: </= Normal Limit Score: 1 MDM MDM MDM Narrative Medical decision making narrative: Patient evaluated for constellation of symptoms including chest discomfort, headache, abdominal discomfort, GI bleeding, headache and cough. Significant medical history. Upon arrival patient's blood pressure is elevated vital signs otherwise normal. Initially cardiac protocol orders entered however after my evaluation I did add on BNP, CRP, D-dimer and plan on performing imaging of his abdomen and pelvis but will wait on the D-dimer in case he requires chest imaging. Patient is ordered IV Toradol and Zofran for his headache. Differential includes myocarditis, pericarditis, ACS, GERD, inflammatory bowel disease, irritable bowel disease, hemorrhoidal bleeding, anemia, viral illness, pulmonary emboli and pancreatitis. Lab work largely normal. Normal CBC with a normal hemoglobin. Normal coags. D-dimer is normal at 0.34. Low special for pulmonary emboli. He does have a mildly elevated CRP which could be consistent with underlying inflammatory process or possibly viral illness. BMP does show mild elevation of his glucose at 153 but otherwise largely unremarkable. Lipase is normal at 20. Chest x-ray viewed by myself as well as radiology does not show any acute process. Patient be signed out to oncoming physician pending CT results. Unless this shows no acute abnormality anticipate patient can be discharged home with outpatient GI follow-up as well as PCP referral. Lab Data Attestation: I reviewed the patient's lab results. Labs: Laboratory Results - last 24 hr 01/17/24 01/17/24 01/17/24 20:05 20:09 22:26 WBC 7.6 RBC 5.00 Hgb 14.2 Hct 42.1 MCV 84.2 MCH 28.4 MCHC 33.7 RDW Std Deviation 39.7 RDW Coeff of Kylie 13.1 Plt Count 264 MPV 11.0 Immature Gran % (Auto) 1.300 H Neut % (Auto) 62.8 Lymph % (Auto) 26.8 [place] % (Auto) 6.2 Eos % (Auto) 2.2 Baso % (Auto) 0.7 Absolute Neuts (auto) 4.8 Absolute Lymphs (auto) 2.04 Nucleated RBC % 0 PT 13.4 INR 1.0 D-Dimer Quant (PE/DVT) 0.34 Sodium 140 Potassium 3.6 Chloride 109 H Carbon Dioxide 26.0 Anion Gap 5 BUN 13 Creatinine 1.05 Estim Creat Clear Calc 147.82 Est GFR (MDRD) Af Amer 104 Est GFR (MDRD) Non-Af 86 BUN/Creatinine Ratio 12.4 Glucose 153 H Calcium 8.6 Troponin I High Sens 4 4 C-React Prot Ext Range 6.06 H B-Natriuretic Peptide 4.5 Lipase 20 Radiography Diagnostic Testing: Clinical Impression(s) from Imaging Studies Chest X-Ray 01/17/24 20:30 IMPRESSION: No radiographic evidence of acute cardiopulmonary disease. Electronically Signed: Amilcar Field DO at 21:04 EDT , Abdomen/Pelvis CT 01/18/24 00:00 IMPRESSION: 1. Right lower lobe infiltrate consistent with lobar pneumonia. 2. No acute intra-abdominal abnormality. Electronically Signed: Immanuel Ragland DO at 0:48 EDT , Rhythm Strip Rhythm Strip: Sinus Rhythm Rate: 76 Ectopy: None EKG Initial EKG: Attestation: I personally reviewed and interpreted this EKG as follows: Interpretation: Sinus Rhythm Comments: Normal sinus rhythm at a rate of 76 bpm Normal axis Normal intervals Normal ST segments Prior EKG tracings: available for review Prior: Changed (Patient no longer tachycardic) Discharge Plan Triage Chief Complaint: Chest Pain ED Provider: Rimma Carcamo Dx/Rx/DC Orders Clinical Impression: BRBPR (bright red blood per rectum), Hypertension, Headache, Chest pain, RLL pneumonia Instructions: ED Hypertension New Begin Treatment, ED Pneumonia (Adult), ED Lower GI Bleeding (Stable), ED Abdominal Pain Unkn Cause Male... Prescriptions: New doxycycline hyclate 100 mg tablet 100 mg PO BID Qty: 14 0RF amlodipine 5 mg tablet 5 mg PO DAILY Qty: 30 0RF No Action NK Primary Care Provider: Care Physician,No Primary Referrals: Juan Mattson DO [Non-Staff] - Chin Espinoza MD [Med Staff - Active Staff] - Dieter Hill DO [Med Staff - Active Staff] - As soon as possible Care Physician,No Primary [Primary Care Provider] - Activity Restrictions/Additional Instructions: You been given follow-up for GI specialist for your rectal bleeding. You have also been followed up for 2 different primary care doctors. Your cardiac workup was largely normal today. Low suspicion for blood clot in the lung based on your blood work. Your chest x-ray did not show any acute abnormality. Your chest x-ray did not show pneumonia but the CT of the abdomen pelvis did show pneumonia in the right lower lobe. Will treat this with doxycycline. You are given the first dose tonight. In addition you will be started on amlodipine to take once a day for your blood pressure. Print Language: Slovenian Disposition Disposition: Home, Self Care
[2024-01-18] VITALS: BP 146/93; PULSE 73; RESP 20; O2SAT 98
--- NOTE | 2024-01-18 | CT_ITS ---
INDICATION: abdominal pain, distention EXAMINATION: CT Abdomen And Pelvis W/ Contrast Injection TECHNIQUE: Helically acquired images were obtained of the abdomen and pelvis with sagittal and coronal reconstructed images. Individualized dose optimization techniques were used for this CT. IV contrast dosage and agent: 100 mL of Isovue 300. Oral contrast: None. COMPARISON: 08/14/2023 CT. FINDINGS: VESSELS: No abdominal aortic aneurysm or dissection. LIVER: No evidence of a mass. No intrahepatic or extrahepatic biliary duct dilation. GALLBLADDER: No calcified stones. No evidence of cholecystitis. PANCREAS: No focal solid or cystic mass. No evidence of pancreatitis. SPLEEN: Normal. ADRENAL GLANDS: Normal. KIDNEYS AND URETERS: No urinary tract stone. No hydronephrosis or hydroureter. No significant asymmetric perinephric stranding. URINARY BLADDER: Unremarkable. BOWEL: Diverticulosis with no evidence of diverticulitis. Appendix appears normal. No evidence of bowel obstruction. REPRODUCTIVE ORGANS: No evidence of a pelvic mass. PERITONEUM: No intraabdominal free fluid or free air. LYMPH NODES: No pathologically enlarged mesenteric or retroperitoneal lymph nodes. ABDOMINAL WALL: No abdominal or pelvic wall hernia. BONES: No acute abnormality. LOWER CHEST: Right lower lobe infiltrate. CT/Abdomen/Pelvis W IV Cont ONLY IMPRESSION: 1. Right lower lobe infiltrate consistent with lobar pneumonia. 2. No acute intra-abdominal abnormality. Electronically Signed: Immanuel Ragland DO at 0:48 EDT ,
[2024-01-18 01:00] VITALS: BP 146/93; PULSE 78; RESP 17; O2SAT 98
[2024-01-18] MEDS: Doxycycline 100 MG CAPSULE PO (01:23)
[2024-01-18 01:26] VITALS: BP 146/93; PULSE 78; RESP 16; TEMP 36.7; O2SAT 97
== END 2024-01-18 01:27 | disposition home or self-care (01) ==
PROVIDERS: Emergency Provider Emergency Medicine; Referring Provider Emergency Medicine; Visit Provider Emergency Medicine
DX: R07.89 Other chest pain (principal); J18.9 Pneumonia, unspecified organism; K92.1 Melena; R06.00 Dyspnea, unspecified; R51.9 Headache, unspecified; I10 Essential (primary) hypertension; E78.5 Hyperlipidemia, unspecified; Z87.891 Personal history of nicotine dependence
CPT/HCPCS: 71045; 74177; 80048; 83690; 83880; 84484; 85025; 85379; 85610; 86140; 93005; 96374; 96375; 99284; Q9967; A4216; J2405

== ENCOUNTER 2024-01-27 15:57 | Emergency (ER) | payer MEDICAID, MEDICARE, SELFPAY ==
[2024-01-27 15:58] VITALS: BP 149/105; PULSE 92; RESP 15; TEMP 36.8; O2SAT 96; BMI 42.0
[2024-01-27] MEDS: Fluorescein 1 MG STRIP 1 STRIP OPHTHALMIC (17:20)
[2024-01-27] MEDS: Tetracaine 0.5% Ophthalmic Bottle 1 DRP OPHTHALMIC (17:21)
== END 2024-01-27 17:23 | disposition home or self-care (01) ==
PROVIDERS: Emergency Provider Emergency Medicine; Visit Provider Emergency Medicine
DX: H10.32 Unspecified acute conjunctivitis, left eye (principal); F25.9 Schizoaffective disorder, unspecified; F41.9 Anxiety disorder, unspecified; I10 Essential (primary) hypertension; E78.5 Hyperlipidemia, unspecified; F17.290 Nicotine dependence, other tobacco product, uncomplicated; Z79.899 Other long term (current) drug therapy
CPT/HCPCS: 99283

== ENCOUNTER 2024-01-31 10:35 | Emergency (ER) | payer MEDICAID, MEDICARE, SELFPAY ==
[2024-01-31 10:36] VITALS: BP 164/102; PULSE 108; RESP 16; TEMP 36.4; O2SAT 99; BMI 42.0
--- NOTE | 2024-01-31 11:19 | EX.ED.VIS.EY ---
HPI History of Present Illness Chief Complaint: Eye Problem Informant: patient Narrative Narrative: Patient is 33-year-old male with recent diagnosis of bacterial conjunctivitis of the left eye present seen with left eye discomfort and discoloration. Patient was recently diagnosed with pneumonia about 2 weeks ago and has been having alot of coughing. Sometimes he does get episodes of vomiting. He notes sometimes he has particularly bad episodes of coughing and vomiting and also been pretty aggressively rubbing his left eye. He has been using ciprofloxacin drops for his left eye with improvement but is worried that somehow this is a worsening infection or staph infection. Has not followed up with ophthalmology yet. Notes that he normally wears contacts was not been wearing them. He states he does not have glasses to wear. While he still coughing he feels that he is recovering from his pneumonia and slowly getting better. No other complaints or concerns at this time. [facility] Medical History Hx of staphylococcal infection Depression Myocardiopathy Migraine Hyperlipidemia Fracture of neck Anxiety Hypertension Pericarditis GI bleed Myocardial infarct Home Medications ?Medication ?Instructions ?Recorded ?Last Taken ?Type amlodipine 5 mg tablet 5 mg PO DAILY #30 tabs 01/18/24 Unknown Rx doxycycline hyclate 100 mg tablet 100 mg PO BID #14 tabs 01/18/24 Unknown Rx ciprofloxacin HCl 0.3 % eye drops 1 drp LEFT EYE Q2H 2 days #5 mL 01/27/24 Unknown Rx benzonatate 200 mg capsule 200 mg PO TID PRN cough #20 caps 01/31/24 Unknown Rx peg 400-propylene glycol (PF) 0.4 1 drp EACH EYE Q1H PRN dry eye(s) 01/31/24 Unknown Rx %-0.3 % eye drops in a dropperette #30 ea (Systane (PF)) Allergy/AdvReac Type Severity Reaction Status Date / Time Penicillins Allergy Anaphylaxis Verified 01/31/24 10:39 Family History Grandmother Myocardial infarction Diabetes Seizures Grandfather CVA (cerebral vascular accident) Myocardial infarction Colon cancer Uncle Schizophrenia Aunt Schizophrenia Surgical History History of tonsillectomy Social History household members: spouse and children Smoking Status: Current every day smoker tobacco type: e-cigarettes Electronic Cigarette Use: with nicotine how long ago did patient quit smoking: Quit cigarette tobacco 2-3 yrs prior (03/21 ppd)->transition to vaping. alcohol intake: never substance use type: does not use ROS ROS ED Constitutional Constitutional ED: Denies chills or fever(s) Eyes Eyes: Reports other Details: Pain, swelling and redness to the left eye. Mild injection to the right eye. Respiratory/Chest Respiratory/Chest: Reports cough; Denies dyspnea Gastrointestinal Gastrointestinal: Reports nausea and vomiting Musculoskeletal Musculoskeletal: Denies arthralgias or myalgias Integumentary Denies Abrasions Neurologic Neurologic: Reports headache(s); Denies paresthesias or weakness Psychiatric Psychiatric: Reports anxiety Hematologic/Lymphatic Hematologic/Lymphatic: Denies easy bleeding or easy bruising EXAM Physical Exam Const Vital Signs: 01/31/24 10:36 Temperature 97.5 F L Temperature Source Oral Pulse Rate 108 H Respiratory Rate 16 Blood Pressure 164/102 H Blood Pressure Mean 122 Pulse Ox 99 Oxygen Delivery Method Room Air Positive well nourished and well developed General Appearance ED: well developed and NAD HEENT atraumatic Eyes Eyes Narrative: No exophthalmos. PERRL, EOMI. Patient has injection of the conjunctiva on the right eye. Normal lids. On the left eye he has a pretty significant subconjunctival hematoma with some associated ecchymosis present. This does not past the borders of the iris. There is no associated hyphema present. There is some associated ecchymosis of the inner aspect of the upper and lower eyelid and the periorbital area. No photophobia appreciated. Pressure - 22mmHg on the left. Neck supple Resp normal respiratory effort Cardio regular rate and regular rhythm Neuro oriented x3 Sensorium / Orientation: alert Motor Exam: Negative for general weakness Psych Mood & Affect: Negative for depressed or anxious Skin Skin Narrative: Ecchymosis noted around the left eye. MDM MDM MDM Narrative Medical decision making narrative: Patient evaluated for left thigh bruising and redness. Exam consistent with bruising and subconjunctival hemorrhage. He has normal intraocular pressures. No exophthalmos. Denies any trauma. I suspect this is from persistent coughing and vomiting as well as the patient aggressively rubbing his eyes it is causing this trauma. He also has some fine petechial lesions on the face consistent with retching. Patient is given cough medicine as well as lubricating eyedrops. At this time encouraged again to follow-up with ophthalmology for further evaluation of this and monitoring. I do not think there is a worsening infection or septal/preseptal cellulitis based on physical exam. Patient overall is well-appearing and again this presentation is much more consistent with bruising and not infection. Discharge Plan Triage Chief Complaint: Eye Problem ED Provider: Rimma Carcamo Dx/Rx/DC Orders Clinical Impression: Non-traumatic subconjunctival hemorrhage of left eye, Traumatic ecchymosis of left eyelid Instructions: ED Subconjunctival Hemorrhage Prescriptions: New Systane (PF) 0.4-0.3 % dropperette 1 drp EACH EYE Q1H PRN (Reason: dry eye(s)) Qty: 30 0RF benzonatate 200 mg capsule 200 mg PO TID PRN (Reason: cough) Qty: 20 0RF No Action ciprofloxacin HCl 0.3 % drops 1 drp LEFT EYE Q2H 2 Days Qty: 5 0RF Rx Instructions: administer while awake doxycycline hyclate 100 mg tablet 100 mg PO BID Qty: 14 0RF amlodipine 5 mg tablet 5 mg PO DAILY Qty: 30 0RF Primary Care Provider: Care Physician,No Primary Referrals: Lydia Galo MD [Non-Staff] - Nella Cobos MD [Med Staff - Active Staff] - 1 Day Activity Restrictions/Additional Instructions: Please call [facility] office later today to arrange close follow-up. Let them know you are seen in the ER. Continue using antibiotic eyedrops as prescribed to the left eye. If you like you can also use on the right eye. Use the prescribed eyedrops today (Systane) for discomfort lubrication. Try to avoid rubbing your eyes. If they are bothering you put a cool compress over your eyes. Print Language: Lithuanian Disposition Disposition: Home, Self Care Discharge Date/Time: 01/31/24 11:58
[2024-01-31] MEDS: Tetracaine 0.5% Ophthalmic Bottle 1 DRP OPHTHALMIC (11:56)
== END 2024-01-31 11:58 | disposition home or self-care (01) ==
PROVIDERS: Emergency Provider Emergency Medicine; Visit Provider Emergency Medicine
DX: S00.12XA Contusion of left eyelid and periocular area, initial encounter (principal); H11.32 Conjunctival hemorrhage, left eye; E78.5 Hyperlipidemia, unspecified; I10 Essential (primary) hypertension; F17.290 Nicotine dependence, other tobacco product, uncomplicated; X58.XXXA Exposure to other specified factors, initial encounter
CPT/HCPCS: 99282

== ENCOUNTER 2024-02-11 15:57 | Emergency (ER) | payer MEDICAID, MEDICARE, SELFPAY ==
[2024-02-11 15:57] VITALS: BP 150/97; PULSE 88; RESP 16; TEMP 36.2; O2SAT 95; BMI 40.2
[2024-02-11 16:57] VITALS: BP 132/86; PULSE 98; RESP 16; O2SAT 98
--- NOTE | 2024-02-11 17:36 | EDS_ITS ---
HPI HPI - Psych History of Present Illness Chief Complaint: Depression Detail of Chief Complaint: Depression not coping well since August 2023 Informant: patient Onset/Context/Timing Onset: Month(s) Context: Sudden Onset Conflict: Family and Work Timing: Continuous Current Severity: Mild Maximum Severity: Severe Relieved by: Nothing Associated Symptoms Associated Symptoms - Psych: Positive for Depressed, Change in Eating, Change in sleeping, Decreased Concentration and Suicidal Thoughts; Negative for Guilt, Hopelessness, Easily distracted, Grandiosity, Flight of Ideas, Increased activity, Pressured Speech, Agitated, Angry, Hostile, Threatening, Confusion, Paranoia, Visual Hallucinations or Auditory Hallucinations Specific plan (suicidal thought): Presently no plan. He would not elaborate what thoughts he has had. Narrative Narrative: Patient is a 33-year-old male with history of schizoaffective disorder, myocardial infarction, hyperlipidemia and hypertension who presents because of depression. 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 He has had difficulty at work. Had difficulty with his spouse and 3 children. He states he yells at them. He has had trouble with appetite weight loss, trouble sleeping. It is affecting his relationships with friends and coworkers. Prior similar symptoms: Yes Recent Illness/Hospitalization: No PFSH PFSH Medical History Hx of staphylococcal infection Depression Myocardiopathy Migraine Hyperlipidemia Fracture of neck Anxiety Hypertension Pericarditis GI bleed Myocardial infarct Home Medications ?Medication ?Instructions ?Recorded ?Last Taken ?Type amlodipine 5 mg tablet 5 mg PO DAILY #30 tabs 01/18/24 Unknown Rx doxycycline hyclate 100 mg tablet 100 mg PO BID #14 tabs 01/18/24 Unknown Rx ciprofloxacin HCl 0.3 % eye drops 1 drp LEFT EYE Q2H 2 days #5 mL 01/27/24 Unknown Rx benzonatate 200 mg capsule 200 mg PO TID PRN cough #20 caps 01/31/24 Unknown Rx peg 400-propylene glycol (PF) 0.4 1 drp EACH EYE Q1H PRN dry eye(s) 01/31/24 Unknown Rx %-0.3 % eye drops in a dropperette #30 ea (Systane (PF)) Allergy/AdvReac Type Severity Reaction Status Date / Time Penicillins Allergy Anaphylaxis Verified 01/31/24 10:39 Family History Grandmother Myocardial infarction Diabetes Seizures Grandfather CVA (cerebral vascular accident) Myocardial infarction Colon cancer Uncle Schizophrenia Aunt Schizophrenia Surgical History History of tonsillectomy Social History household members: spouse and children Smoking Status: Current every day smoker tobacco type: cigarettes and e- cigarettes Electronic Cigarette Use: with nicotine how long ago did patient quit smoking: Quit cigarette tobacco 2-3 yrs prior (03/21 ppd)->transition to vaping. alcohol intake: never substance use type: does not use ROS ROS ED Constitutional Constitutional ED: Denies chills, fever(s), subjective or sweats Eyes Eyes: Denies blurry vision or change in vision ENT ENT ED: Denies ear pain, rhinorrhea or sore throat Cardiovascular Cardiovascular: Denies chest pain, orthopnea or palpitations Respiratory/Chest Respiratory/Chest: Denies cough, dyspnea, dyspnea on exertion or orthopnea Gastrointestinal Gastrointestinal: Denies abdominal pain, constipation, diarrhea, nausea or vomiting Genitourinary Genitourinary ED: Denies dysuria, hematuria or urinary frequency Musculoskeletal Musculoskeletal: Denies arthralgias, back pain or myalgias Neurologic Neurologic: Denies headache(s), paresthesias or weakness Psychiatric Psychiatric: Reports anxiety, depression and suicidal thoughts; Denies suicidal ideation Endocrine Endocrinology: Denies polydipsia, polyphagia or polyuria Hematologic/Lymphatic Hematologic/Lymphatic: Denies easy bleeding or easy bruising EXAM Physical Exam Const Vital Signs: 02/11/24 15:57 02/11/24 16:57 Temperature 97.2 F L Temperature Source Temporal Pulse Rate 88 98 Respiratory Rate 16 16 Blood Pressure 150/97 H 132/86 H Blood Pressure Mean 114 101 Pulse Ox 95 98 Oxygen Delivery Method Room Air Positive well nourished and well developed Constitutional Narrative: BMI is 40.3. General Appearance ED: well developed HEENT Reports moist mucous membranes normocephalic and atraumatic Eyes PERRL and EOMs intact bilaterally General Eye ED: Negative for pale conjunctiva or scleral icterus Neck no lymphadenopathy, supple and no JVD Resp normal respiratory effort and clear to auscultation bilaterally Cardio S1 normal heart sound, S2 normal heart sound and no murmurs GI non-tender, non-distended and no masses Auscultation: normoactive bowel sounds Palpation: soft Back/Spine no CVA tenderness Extremity normal to inspection General Extremety ED: Negative for edema or tenderness General Extremity: Negative for edema Neuro oriented x3, CN's II-XII intact bilaterally and no sensory deficits noted [place] Coma Scale: document GCS findings Spontaneous Obeys Commands Oriented 15 Sensorium / Orientation: alert Psych Appearance: appropriate Attitude: calm, engaged and withdrawn Activity / Motor Behavior: appropriate eye contact and psychomotor slowing Speech: slow Mood & Affect: depressed and flat affect Thought Process: normal thought process Thought Content: suicidality, No homicidality, No phobia(s), No delusion(s) and No hallucination(s) Attention / Concentration: attention grossly intact and concentration grossly intact Memory / Cognition: memory grossly intact and memory grossly impaired Insight: limited Judgement: fair Skin Skin Narrative: No lesions or rash. MDM MDM MDM Narrative Medical decision making narrative: community relations manager was consulted. Patient may benefit from intensive outpatient therapy. Uncertain if he truly needs inpatient therapy. Will wait for eval by the home health nurse licensed practical. If they are of the impression that he would benefit from inpatient versus intensive outpatient will obtain the appropriate labs for screening and approval to psychiatric facility. Lab Data Attestation: I reviewed the patient's lab results. Lab results narrative: CBC is normal. Electrolyte panel is normal. Talk screen is positive for cannabinoids. Alcohol is nondetected Labs: Laboratory Results - last 24 hr 02/11/24 16:42 WBC 7.8 RBC 5.36 Hgb 15.0 Hct 45.5 MCV 84.9 MCH 28.0 MCHC 33.0 RDW Std Deviation 42.8 RDW Coeff of Kylie 13.8 Plt Count 221 MPV 12.3 H Immature Gran % (Auto) 0.500 Neut % (Auto) 61.0 Lymph % (Auto) 27.1 [place] % (Auto) 9.0 Eos % (Auto) 1.8 Baso % (Auto) 0.6 Absolute Neuts (auto) 4.7 Absolute Lymphs (auto) 2.10 Nucleated RBC % 0 Sodium 142 Potassium 3.0 L Chloride 109 H Carbon Dioxide 28.0 Anion Gap 6 BUN 12 Creatinine 0.93 Estim Creat Clear Calc 160.51 Est GFR (MDRD) Af Amer 120 Est GFR (MDRD) Non-Af 99 BUN/Creatinine Ratio 12.9 Glucose 82 Calcium 9.0 Urine Opiates Screen NEGATIVE Urine Methadone Screen NEGATIVE Ur Barbiturates Screen NEGATIVE Ur Phencyclidine Scrn NEGATIVE Ur Amphetamines Screen NEGATIVE MDMA (Ecstasy) Screen NEGATIVE U Benzodiazepines Scrn NEGATIVE Urine Cocaine Screen NEGATIVE U Cannabinoids Screen POSITIVE H Ur Drug Screen Comment Ethyl Alcohol 4.0 Management Discussion w/another healthcare provider: concrete worker/Case management (Licensed, social media content specialist saw patient. They recommend inpatient therapy. Appropriate blood work was obtained.) Treatment and Re-Evaluation Narrative: . There is no metabolic infectious abnormality noted. In my professional opinion patient has no medical issues that would prevent transfer to psychiatric hospital for treatment of his depression and suicidal thoughts. Patient was accepted at [facility]. EMTALA form was completed. Guin slip was completed Discharge Plan Triage Chief Complaint: Depression ED Provider: Adi La Dx/Rx/DC Orders Clinical Impression: Major depression, Hypertension, Anxiety, Suicidal thoughts Prescriptions: No Action ciprofloxacin HCl 0.3 % drops 1 drp LEFT EYE Q2H 2 Days Qty: 5 0RF Rx Instructions: administer while awake Systane (PF) 0.4-0.3 % dropperette 1 drp EACH EYE Q1H PRN (Reason: dry eye(s)) Qty: 30 0RF benzonatate 200 mg capsule 200 mg PO TID PRN (Reason: cough) Qty: 20 0RF doxycycline hyclate 100 mg tablet 100 mg PO BID Qty: 14 0RF amlodipine 5 mg tablet 5 mg PO DAILY Qty: 30 0RF Primary Care Provider: Care Physician,No Primary Referrals: Care Physician,No Primary [Primary Care Provider] - Print Language: Lithuanian Disposition Disposition: Psychiatric Hospital or Unit
[2024-02-11 18:29] LABS: Absolute Neutrophil Count 4.7 X10^3/uL (2.0-7.7); Basophil# 0.05 X10^3/uL; Basophil% 0.6 % (0-1); Eosinophil# 0.14 X10^3/uL; Eosinophils% 1.8 % (0-5); Hematocrit 45.5 % (40-54); Lymphocyte % 27.1 % (19-41); Mean Corpuscular Volume 84.9 fL (80-94); Mean Platelet Vol. 12.3 fl (6.2-12.0); NRBC Flagged by Analyzer 0 % (0-5); Neutrophil # 4.72 X10^3/uL (2.7-7.7); Platelet Count 221 K/mm3 (150-450); RBC Distribution Width CV 13.8 % (11.6-14.6); RBC Distribution Width SD 42.8 fl (35.1-43.9); Red Blood Count 5.36 M/mm3 (4.6-6.2); White Blood Count 7.8 K/mm3 (4.4-11.0)
[2024-02-11 18:45] LABS: Anion Gap 6 (5-15); BUN 12 mg/dL (7-18); BUN/Creat Ratio 12.9 RATIO (10-20); Chloride 109 mmol/L (98-107); Creatinine, Serum 0.93 mg/dL (0.70-1.30); EST Glomerular Filtration Rate 99 mL/min (>60); Est Glom Filt Rate - Afr Amer 120 mL/min (>60); Estimated Creatinine Clearance 160.51 ml/min; Glucose 82 mg/dL (74-106); Sodium Level 142 mmol/L (136-145)
[2024-02-11 18:56] LABS: Amphetamine Urine VISTA NEGATIVE (<1000 ng/mL); Barbiturate Urine VISTA NEGATIVE (< 200 ng/mL); Benzodiazepine Urine VISTA NEGATIVE (< 200 ng/mL); Cocaine Urine VISTA NEGATIVE (< 300 ng/mL); Ecstacy Urine VISTA NEGATIVE (< 500 ng/mL); Methadone Urine VISTA NEGATIVE (< 300 ng/mL); PCP Urine VISTA NEGATIVE (< 25 ng/mL); THC Urine VISTA POSITIVE (< 50 ng/mL); Vista UDS pH Range 5
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
--- NOTE | 2024-02-11 21:47 | CM.ED ---
Social Work This service writer and WOODS BOSSAlejandra Sandoval provided handoff to Aaron at [facility]. Faxed referral packet to confirmed fax at [facility]. Aaron will send off referrals to inpatient mental health. Dr. La signed pink slip. Updated patient that inpatient treatment will be pursued. Patient agreeable. Nursing updated. Plan: Inpatient psychiatric treatment. [facility] is sending out referrals this evening. -STEFANO Valdivia
--- NOTE | 2024-02-12 00:22 | ED.RN ---
KASEY ARAIZA CALLED, PT REFERRED TO [facility]
--- NOTE | 2024-02-12 00:36 | ED.RN ---
PT ACCEPTED AT [facility] [id number] [phone]
[2024-02-12 01:04] VITALS: BP 134/92; PULSE 82; RESP 18; TEMP 36.8; O2SAT 98
[2024-02-12 05:08] VITALS: BP 134/82; PULSE 82; RESP 18; TEMP 36.8; O2SAT 99
== END 2024-02-12 08:28 ==
PROVIDERS: Emergency Provider Emergency Medicine; Visit Provider Emergency Medicine
DX: F32.9 Major depressive disorder, single episode, unspecified (principal); F41.9 Anxiety disorder, unspecified; R45.851 Suicidal ideations; I10 Essential (primary) hypertension; F17.290 Nicotine dependence, other tobacco product, uncomplicated; Z79.899 Other long term (current) drug therapy
CPT/HCPCS: 80048; 80307; 82077; 85025; 99283

== ENCOUNTER 2024-04-13 10:43 | Emergency (ER) | payer MEDICARE, MEDICAID, SELFPAY ==
[2024-04-13 10:45] VITALS: BP 140/93; PULSE 86; RESP 20; TEMP 38.2; O2SAT 99
== END 2024-04-13 11:17 | disposition left against medical advice (07) ==
LOC: ED 11:23
DX: Z86.73 Personal history of transient ischemic attack (TIA), and cerebral infarction without residual deficits (principal)

== ENCOUNTER 2024-04-14 09:14 | Emergency (ER) | payer MEDICARE, MEDICAID, SELFPAY ==
[2024-04-14 09:15] VITALS: BP 137/77; PULSE 93; RESP 20; TEMP 36.8; O2SAT 100; BMI 40.0
[2024-04-14 09:35] VITALS: BP 137/77; PULSE 93; RESP 20; TEMP 36.8; O2SAT 100
--- NOTE | 2024-04-14 09:53 | EKG12_ITS ---
Test Reason : GENERAL Blood Pressure : */* mmHG Vent. Rate : 90 BPM Atrial Rate : 90 BPM P-R Int : 140 ms QRS Dur : 100 ms QT Int : 342 ms P-R-T Axes : 39 53 46 degrees QTcB Int : 418 ms Normal sinus rhythm Normal ECG Confirmed by DOUG KHALIL, TANVIR ([id number]), continuity editor RICARDO AYERS ([id number]) on 04/16/2024 6:36:10 AM Referred By: Confirmed By: TANVIR CAMACHO MD
--- NOTE | 2024-04-14 09:59 | EX.ED.DYSGE1 ---
HPI History of Present Illness Chief Complaint: Cold Sx Narrative Narrative: Patient is a 33-year-old male with a past medical history anxiety, depression, staph infection with pericarditis who presents to the emergency department chief complaint of nausea vomiting diarrhea diffuse bodyaches and fever. He states this been going on for approximately 3 to 4 days. Patient denies any sick contacts. Patient states that has not been eating or drinking much secondary to not feeling well. Patient denies any sick contacts. Patient denies any alcohol, tobacco, drug use denies any history of IV drug use. PFSH PFSH Medical History Hx of staphylococcal infection Depression Myocardiopathy Migraine Hyperlipidemia Fracture of neck Anxiety Hypertension Pericarditis GI bleed Myocardial infarct Home Medications ?Medication ?Instructions ?Recorded ?Last Taken ?Type amlodipine 5 mg tablet 10 mg PO DAILY 04/14/24 Unknown History escitalopram oxalate 10 mg tablet 10 mg PO DAILY 04/14/24 Unknown History hydroxyzine HCl 50 mg tablet 50 mg PO BID PRN PRN anxiety 04/14/24 Unknown History ondansetron 4 mg disintegrating 4 mg PO Q6H PRN nausea and 04/14/24 Unknown Rx tablet vomiting #20 tabs Allergy/AdvReac Type Severity Reaction Status Date / Time Penicillins Allergy Anaphylaxis Verified 04/14/24 09:17 Family History Grandmother Myocardial infarction Diabetes Seizures Grandfather CVA (cerebral vascular accident) Myocardial infarction Colon cancer Uncle Schizophrenia Aunt Schizophrenia Surgical History History of tonsillectomy Social History household members: spouse and children Smoking Status: Former smoker Electronic Cigarette Use: with nicotine how long ago did patient quit smoking: Quit cigarette tobacco 2-3 yrs prior (03/21 ppd)->transition to vaping. alcohol intake: never substance use type: does not use ROS ROS ED ROS Narrative Constitutional: Complains of fever, chills, diffuse bodyaches as noted above Eyes: Denies changes in vision Cardiovascular: Denies chest pain or palpitations Respiratory: Complains of cough but denies any sputum production denies shortness of breath Abdomen: Complains of nausea vomiting diarrhea as noted above denies any abdominal pain : Denies any urinary symptoms Neurological: Denies numbness, weakness, tingling Musculoskeletal: Denies back pain Skin: Denies rashes or lesions EXAM Physical Exam Narrative Exam Narrative: General: Patient lying in bed rest comfortably did not appear to be acute distress Head: Atraumatic, normocephalic Eyes: PERRL bilaterally, EOMI bilaterally, no conjunctival injection noted Neck: Soft, supple, trachea midline Cardiovascular: Regular rate and rhythm no murmurs gallops rubs noted Respiratory: Clear to auscultation bilaterally no rales rhonchi or wheezes noted Abdomen: Soft, nondistended, nontender to palpation, bowel sounds present x 4 Extremities: +5/5 strength noted in the bilateral upper and lower extremities, radial pulses +2/4 in the bilateral extremities, no pedal edema no exam Neurological: Patient following commands knew that he was at [facility] year is 2024 Skin: Warm, dry, intact no rashes or lesions noted Const Vital Signs: 04/14/24 09:15 04/14/24 09:35 04/14/24 09:38 Temperature 98.2 F 98.2 F Temperature Source Temporal Oral Pulse Rate 93 93 Respiratory Rate 20 H 20 H Respiratory Effort Normal Non-Labored Respiratory Pattern Normal Blood Pressure 137/77 H 137/77 H Blood Pressure Mean 97 97 Pulse Ox 100 100 Oxygen Delivery Method Room Air Room Air 04/14/24 11:15 Temperature Temperature Source Pulse Rate Respiratory Rate Respiratory Effort Respiratory Pattern Blood Pressure 152/47 H Blood Pressure Mean 82 Pulse Ox Oxygen Delivery Method MDM MDM MDM Narrative Medical decision making narrative: Patient is a 33-year-old male who presents to the emergency department with a chief complaint of diffuse bodyaches, fever, nausea vomiting not feeling well for the past several days. On the differential diagnose includes but limited to COVID, flu, RSV, other viral illness, pneumonia. Once workup is obtained reviewed he will be reevaluated. Patient is not febrile here in the emergency department states that he took Tylenol earlier this morning. Patient's chest x-ray reviewed by myself and by radiology showed no acute cardiopulmonary processes. Patient tested positive for influenza A. Patient's EKG reviewed and independently interpreted by myself showed a rate of 90 bpm sinus rhythm. Did discuss results with the patient his symptoms been going on for 3 to 4 days now therefore will not prescribe Tamiflu. He was encouraged to continue supportive care. Prescription for Zofran will be sent to his pharmacy. He is encouraged to follow-up with his primary care physician outpatient setting and return with worsening symptoms or concerns. He is agreeable to plan he like to go home at this point time all question concerns answered is discharged home in stable condition. Radiography Diagnostic Testing: Clinical Impression(s) from Imaging Studies Chest X-Ray 04/14/24 10:30 IMPRESSION: No evidence of acute cardiopulmonary disease. Reading Location: [address] Discharge Plan Triage Chief Complaint: Cold Sx Other Complaint: Nausea/Vomiting/Diarrhea ED Provider: Jaime Farrell Dx/Rx/DC Orders Clinical Impression: Influenza A, Body aches Prescriptions: New ondansetron 4 mg tablet,disintegrating 4 mg PO Q6H PRN (Reason: nausea and vomiting) Qty: 20 0RF No Action amlodipine 5 mg tablet 10 mg PO DAILY escitalopram oxalate 10 mg tablet 10 mg PO DAILY Patient Comments: [NO ORIGINAL SIG] hydroxyzine HCl 50 mg tablet 50 mg PO BID PRN PRN (Reason: anxiety) Primary Care Provider: Lydia Galo Referrals: Lydia Galo MD [Primary Care Provider] - Activity Restrictions/Additional Instructions: Use Zofran as prescribed for nausea. Encourage you to use supportive care with hydration rotating Tylenol and ibuprofen [id number] when you do this you can take something every 3 hours. You tested positive for influenza your chest x-ray did not show evidence of pneumonia. Return with worsening symptoms and concerns. Print Language: Citizen Of [place] Disposition Disposition: Home, Self Care
[2024-04-14] MEDS: 0.9% Normal Saline (1000mL) 1,000 ML 999 ML IV (10:02)
[2024-04-14] MEDS: Ondansetron 4 MG/2 ML Vial IV (10:03)
--- NOTE | 2024-04-14 10:18 | ED.RN ---
sepsis screen completed with conformation with dr. gutierrez
--- NOTE | 2024-04-14 10:30 | RAD_ITS ---
PROCEDURE: CHEST PA AND LATERAL REASON FOR EXAM: Cough. TECHNIQUE: Single frontal image including the chest and abdomen. COMPARISON: AP chest of 01/17/2024. FINDINGS: The lateral view is limited by patient motion. The cardiothymic contour is normal. The lungs are clear. No evidence of pneumoperitoneum. No acute osseous process is noted. No radiopaque foreign body is identified. RAD/Chest PA and Lateral IMPRESSION: No evidence of acute cardiopulmonary disease. Reading Location: [id number]
[2024-04-14 11:15] VITALS: BP 152/47
[2024-04-14 11:58] VITALS: BP 152/47; PULSE 78; RESP 18; TEMP 36.6; O2SAT 99
== END 2024-04-14 12:12 | disposition home or self-care (01) ==
PROVIDERS: Emergency Provider Emergency Medicine; Visit Provider Emergency Medicine
DX: J10.1 Influenza due to other identified influenza virus with other respiratory manifestations (principal); I25.2 Old myocardial infarction; I10 Essential (primary) hypertension; F41.9 Anxiety disorder, unspecified; F32.A Depression, unspecified; Z79.899 Other long term (current) drug therapy; Z87.891 Personal history of nicotine dependence
CPT/HCPCS: 71046; 87631; 93005; 96361; 96374; 99284; A4216; J2405

== ENCOUNTER 2024-05-18 14:58 | Emergency (ER) | payer MEDICARE, MEDICAID, SELFPAY ==
[2024-05-18 14:59] VITALS: BP 142/88; PULSE 80; RESP 18; TEMP 36.8; O2SAT 98; BMI 39.1
--- NOTE | 2024-05-18 15:19 | EX.ED.DYSGE1 ---
HPI History of Present Illness Chief Complaint: Sore Throat [facility] Medical History Hx of staphylococcal infection Depression Myocardiopathy Migraine Hyperlipidemia Fracture of neck Anxiety Hypertension Pericarditis GI bleed Myocardial infarct Home Medications ?Medication ?Instructions ?Recorded ?Last Taken ?Type amlodipine 5 mg tablet 10 mg PO DAILY 04/14/24 Unknown History escitalopram oxalate 10 mg tablet 10 mg PO DAILY 04/14/24 Unknown History hydroxyzine HCl 50 mg tablet 50 mg PO BID PRN PRN anxiety 04/14/24 Unknown History ondansetron 4 mg disintegrating 4 mg PO Q6H PRN nausea and 04/14/24 Unknown Rx tablet vomiting #20 tabs clindamycin HCl 300 mg capsule 300 mg PO TID #21 caps 05/18/24 Unknown Rx Allergy/AdvReac Type Severity Reaction Status Date / Time Penicillins Allergy Anaphylaxis Verified 04/14/24 09:17 Family History Grandmother Myocardial infarction Diabetes Seizures Grandfather CVA (cerebral vascular accident) Myocardial infarction Colon cancer Uncle Schizophrenia Aunt Schizophrenia Surgical History History of tonsillectomy Social History household members: spouse and children Smoking Status: Former smoker Electronic Cigarette Use: with nicotine how long ago did patient quit smoking: Quit cigarette tobacco 2-3 yrs prior (03/21 ppd)->transition to vaping. alcohol intake: never substance use type: does not use EXAM Physical Exam Const Vital Signs: 05/18/24 14:59 Temperature 98.3 F Temperature Source Temporal Pulse Rate 80 Respiratory Rate 18 Blood Pressure 142/88 H Blood Pressure Mean 106 Pulse Ox 98 Oxygen Delivery Method Room Air MDM MDM MDM Narrative Medical decision making narrative: HISTORY OF PRESENT ILLNESS: 33-year-old male presents for concern for sore throat. States difficulty swallowing. States it does not feel right when I swallow, may have infection ear canal. Patient also endorses dizziness. He states he went to his dentist 1 week ago and was diagnosed with a tooth infection. Notes he got an antibiotic that time but cannot fill it because he lost up a prescription. Notes continued pain. Denies fever. Denies vomiting. Notes his pain is located in the lower and upper molar region. Notes he has an appointment with a dentist in 2 weeks. REVIEW OF SYSTEMS: Pertinent positives: Sore throat, dizziness Pertinent negatives: PHYSICAL EXAM: Nursing triage notes reviewed, Vital signs reviewed Constitutional: please see mdm HENT: MMM, grossly normal dentition, no sign of dental abscess, dental caries or dental infection. No submandibular edema, no obvious lymphadenopathy. Patient speaking full sentences. No drooling. No stridor. Bilateral TMs pearly bassett with no middle ear effusion, bulging or hyperemia. Eyes: Pupils equal round and reactive to light, Extraocular muscles intact, MEDICAL DECISION MAKING: Chief Complaint: sore throat External records reviewed: Reviewed prior ED note Factors affecting care: schizoaffective disorder, borderline personality disorder, hyperlipidemia, anxiety, hypertension Social determinants of health: none History obtained from others: none Consults: none [facility] Narrative: Patient was initially hemodynamically stable, afebrile and nontoxic-appearing. Exam without signs of dental infection, dental abscess. No signs of bacterial or viral pharyngitis eardrums were clear bilaterally. No sign of otitis externa or otitis media. After history and physical exam patient noted that he went to his dentist approximately week ago and his dentist prescribed him antibiotics however he cannot fill the prescription because he lost the paper prescription. He states he would like antibiotics he thinks is making symptoms better I agreed to write him clindamycin for the next 7 days and encouraged him to take Tylenol and ibuprofen and follow-up with dentistry. I considered the following differential diagnosis: Bacterial pharyngitis, viral pharyngitis, otitis media, otitis externa, The patient and/or family, caregivers express understanding. The patient and/or family, caregivers agrees with the plan. Shared decision making: I will have a discussion with the patient and or visitors regarding risk/benefits of further testing or admission. They will be made aware of of the risk/benefits inherent in this decision they will be given the opportunity to voice understanding. Total critical care time today provided was at least 0 minutes. This excludes separately billable procedures. Critical care time (if documented) is secondary to the patient having high probability of clinically significant/life threatening deterioration in the patient's condition which required my urgent intervention. Impression: 1. Dental pain Dispo: Discharge home This note was generated with [employer] dictation software. It may contain incorrect words, spelling, and punctuation that were not noted in review of the chart prior to signing. Discharge Plan Triage Chief Complaint: Sore Throat ED Provider: Bala Spencer Dx/Rx/DC Orders Clinical Impression: Pain, dental Instructions: ED Dental Pain Prescriptions: New clindamycin HCl 300 mg capsule 300 mg PO TID Qty: 21 0RF No Action amlodipine 5 mg tablet 10 mg PO DAILY escitalopram oxalate 10 mg tablet 10 mg PO DAILY Patient Comments: [NO ORIGINAL SIG] hydroxyzine HCl 50 mg tablet 50 mg PO BID PRN PRN (Reason: anxiety) ondansetron 4 mg tablet,disintegrating 4 mg PO Q6H PRN (Reason: nausea and vomiting) Qty: 20 0RF Primary Care Provider: Lydia Galo Referrals: Lydia Galo MD [Primary Care Provider] - Activity Restrictions/Additional Instructions: Thank you for trusting us with your care today! Please take Tylenol (2 pills, 650 mg), ibuprofen (2 pills, 400 mg) every 6 hours as needed for pain and fever control. Please take antibiotics as prescribed until course complete. Please return to the emergency department if your symptoms change or worsen. Specifically develop difficulty swallowing, drooling. Please follow with your primary care physician for further outpatient evaluation and management. Print Language: Welsh Disposition Disposition: Home, Self Care
== END 2024-05-18 16:05 | disposition home or self-care (01) ==
PROVIDERS: Emergency Provider Emergency Medicine; Visit Provider Emergency Medicine
DX: K08.89 Other specified disorders of teeth and supporting structures (principal); I10 Essential (primary) hypertension; F17.290 Nicotine dependence, other tobacco product, uncomplicated; Z79.899 Other long term (current) drug therapy
CPT/HCPCS: 99282

== ENCOUNTER 2024-08-14 03:03 | Emergency (ER) | payer MEDICARE, MEDICAID, SELFPAY ==
[2024-08-14 03:04] VITALS: BP 151/95; PULSE 72; RESP 18; TEMP 36.8; O2SAT 98; BMI 43.6
--- NOTE | 2024-08-14 03:19 | EKG12_ITS ---
Test Reason : CP Blood Pressure : */* mmHG Vent. Rate : 75 BPM Atrial Rate : 75 BPM P-R Int : 154 ms QRS Dur : 98 ms QT Int : 388 ms P-R-T Axes : 18 21 23 degrees QTcB Int : 433 ms Normal sinus rhythm Normal ECG Confirmed by Neymar Guan ([id number]), book editor RICARDO AYERS ([id number]) on 08/17/2024 10:42:07 AM Referred By: LEROY Confirmed By: Neymar Guan
--- NOTE | 2024-08-14 03:30 | RAD_ITS ---
PROCEDURE: CHEST PA AND LATERAL 08/14/2024 REASON FOR EXAM: CHEST PAIN, COUGH TECHNIQUE: Frontal and lateral views of the chest. 2 frontal and 2 lateral to include the entire chest, 4 total images COMPARISON: 04/14/2024 FINDINGS: The lungs are clear. Pulmonary vascularity appears within limits. No pleural effusion. The cardiac and mediastinal contours appear within limits. The visualized osseous structures appear within limits. RAD/Chest PA and Lateral IMPRESSION: No evidence of acute disease. Reading Location: [id number]
[2024-08-14 03:32] LABS: Absolute Lymphocyte Count 2.65 X10^3/uL (0.83-4.51); Absolute Neutrophil Count 3.5 X10^3/uL (2.0-7.7); Basophil# 0.03 X10^3/uL; Basophil% 0.4 % (0-1); Eosinophil# 0.07 X10^3/uL; Hemoglobin 14.4 g/dL (13.0-16.5); Lymphocyte # 2.65 X10^3/ul (0.83-4.51); Lymphocyte % 39.3 % (19-41); Mean Corp Hgb Conc 35.1 g/dL (32-36); Mean Corpuscular Hgb 28.7 pg (27.0-32.0); Mean Corpuscular Volume 81.8 fL (80-94); Mean Platelet Vol. 11.2 fl (6.2-12.0); Monocyte# 0.49 X10^3/uL; Monocyte% 7.3 % (0-10); NRBC Flagged by Analyzer 0 % (0-5); Neutrophil # 3.47 X10^3/uL (2.7-7.7); Neutrophil % 51.6 % (47-70); Platelet Count 223 K/mm3 (150-450); RBC Distribution Width CV 13.4 % (11.6-14.6); RBC Distribution Width SD 39.6 fl (35.1-43.9); Red Blood Count 5.01 M/mm3 (4.6-6.2); White Blood Count 6.7 K/mm3 (4.4-11.0)
--- NOTE | 2024-08-14 03:45 | ED.VIS.CHEST ---
HPI History of Present Illness Chief Complaint: Chest Pain Informant: patient Narrative Narrative: Patient presents for evaluation transient chest pains tingling left arm. He states started while at work at midnight. Currently asymptomatic. 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 He states he had 2 heart attacks describing history of perimyocarditis. He had viral infection when he was 23 then last year had additional symptoms. He was transferred up to [facility]. No heart caths have been performed. He states he had high blood pressure a year ago also. He ran out of his medications he does not have a PCP. Grandfather with [place] in the 20s. Patient has report on and off cough for 2 months. No fevers. No pain with deep breath. No pain with leaning forward. No vomiting or diarrhea. He reports vaping. No recent travel or surgeries. No history of PE or DVT. Currently asymptomatic. He also reports he is on his seventh day of work where he is working 12 hours. He is getting 2 hours of sleep. Prior Similar Symptoms: Yes Recent Illness/Hospitalization: No CVD Risk Factors: Positive for Hypertension, Hypercholesterolemia, Family History 1' </=55 and Smoking; Negative for Diabetes PE Risk Factors: Negative for Recent Travel/Surgery, Recent Immobilization or Prior DVT or PE [facility] Medical History Hx of staphylococcal infection Depression Myocardiopathy Migraine Hyperlipidemia Fracture of neck Anxiety Hypertension Pericarditis GI bleed Myocardial infarct Home Medications ?Medication ?Instructions ?Recorded ?Last Taken ?Type amlodipine 5 mg tablet 10 mg PO DAILY 04/14/24 Unknown History escitalopram oxalate 10 mg tablet 10 mg PO DAILY 04/14/24 Unknown History hydroxyzine HCl 50 mg tablet 50 mg PO BID PRN PRN anxiety 04/14/24 Unknown History ondansetron 4 mg disintegrating 4 mg PO Q6H PRN nausea and 04/14/24 Unknown Rx tablet vomiting #20 tabs clindamycin HCl 300 mg capsule 300 mg PO TID #21 caps 05/18/24 Unknown Rx Allergy/AdvReac Type Severity Reaction Status Date / Time Penicillins Allergy Anaphylaxis Verified 08/14/24 03:03 Family History Grandmother Myocardial infarction Diabetes Seizures Grandfather CVA (cerebral vascular accident) Myocardial infarction Colon cancer Uncle Schizophrenia Aunt Schizophrenia Surgical History History of tonsillectomy Social History household members: spouse and children Smoking Status: Current every day smoker tobacco type: e-cigarettes Electronic Cigarette Use: with nicotine how long ago did patient quit smoking: Quit cigarette tobacco 2-3 yrs prior (03/21 ppd)->transition to vaping. alcohol intake: never substance use type: does not use ROS ROS ED Constitutional Constitutional ED: Denies chills, fever(s) or sweats ENT ENT ED: Denies sore throat Cardiovascular Cardiovascular: Reports chest pain; Denies leg edema, palpitations or racing heartbeat Respiratory/Chest Respiratory/Chest: Reports cough; Denies dyspnea or dyspnea on exertion Gastrointestinal Gastrointestinal: Denies abdominal pain, diarrhea, nausea or vomiting Genitourinary Genitourinary ED: Denies dysuria, hematuria or urinary frequency Musculoskeletal Musculoskeletal: Denies back pain, extremity pain or neck pain Integumentary Denies rash or wounds Neurologic Neurologic: Denies headache(s), paresthesias or weakness EXAM Physical Exam Const Vital Signs: 08/14/24 03:04 08/14/24 03:04 08/14/24 03:23 Temperature 98.2 F Temperature Source Oral Pulse Rate 72 Respiratory Rate 18 Respiratory Effort Normal Blood Pressure 151/95 H Blood Pressure Mean 113 Pulse Ox 98 Oxygen Delivery Method Room Air Room Air 08/14/24 04:03 08/14/24 05:00 08/14/24 05:51 Temperature 98.2 F Temperature Source Pulse Rate 75 74 67 Respiratory Rate 17 16 16 Respiratory Effort Blood Pressure 124/88 H 107/85 H 113/77 Blood Pressure Mean 100 92 89 Pulse Ox 97 100 97 Oxygen Delivery Method Room Air Room Air Positive well nourished and well developed General Appearance ED: well developed and NAD HEENT Reports moist mucous membranes normocephalic and atraumatic Eyes General Eye ED: Yes normal appearance of both eyes Neck full ROM Chest Wall Chest: Negative for tenderness Resp normal respiratory effort and normal air movement Effort and Inspection: symmetric chest movement; Negative for respiratory distress Cardio regular rate, regular rhythm and no murmurs Peripheral Pulses: pulses 2+ throughout GI normal to inspection, nondistended, normoactive bowel sounds and non-tender Palpation: Negative for guarding or rebound tenderness present Extremity normal to inspection General Extremety ED: Negative for edema or tenderness General Extremity: Negative for edema Neuro oriented x3 and no sensory deficits noted Sensorium / Orientation: awake and alert Skin no rashes or lesions noted and no wounds MDM MDM MDM Narrative Medical decision making narrative: Interventions / MDM: Differential diagnosis: Atypical chest pain. Diagnosis considered but do not suspect: Pulmonary embolism however PERC criteria negative. ACS however EKG and cardiac enzymes negative x 2. My EKG interpretation: Sinus rate of 75, no ST changes. QTc 433. Imaging independently reviewed and interpreted by myself: 2 view chest x-ray: No acute process. External documents reviewed: Patient July 2023 GI symptoms leading to findings troponin 9000. Workup was initiated here however family requested transfer up to [place]. 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 He has grandfather [place] in his 20s. No history of heart cath. Does report recent on and off cough for 2 months. EKG sinus rhythm no acute changes. Cardiac workup initiated. Symptom-free on arrival. Troponin negative x 2, remains symptom-free. Chest x-ray negative. Reassuring findings. Discussed follow-up with his cardiology team in [place]. Discussed return precautions. All questions were answered. Re-evaluation: stable Disposition discussed with patient/family/significant other: Patient Case discussed with consulting clinician: N/A This note was generated with [employer] dictation software. It may contain incorrect words, spelling, and punctuation that were not noted in checking the note before signing. Lab Data Attestation: I reviewed the patient's lab results. Labs: Laboratory Results - last 24 hr 08/14/24 08/14/24 03:13 05:12 WBC 6.7 RBC 5.01 Hgb 14.4 Hct 41.0 MCV 81.8 MCH 28.7 MCHC 35.1 RDW Std Deviation 39.6 RDW Coeff of Kylie 13.4 Plt Count 223 MPV 11.2 Immature Gran % (Auto) 0.400 Neut % (Auto) 51.6 Lymph % (Auto) 39.3 Sanders % (Auto) 7.3 Eos % (Auto) 1.0 Baso % (Auto) 0.4 Absolute Neuts (auto) 3.5 Absolute Lymphs (auto) 2.65 Nucleated RBC % 0 Sodium 139 Potassium 3.9 Chloride 103 Carbon Dioxide 23.7 Anion Gap 13 BUN 14 Creatinine 0.89 Estim Creat Clear Calc 173.62 Est GFR (MDRD) Non-Af 115 BUN/Creatinine Ratio 16.1 Glucose 94 Calcium 9.4 Troponin T High Sens < 6 Troponin T Hi Sens 2 Hr < 6 Radiography Diagnostic Testing: Clinical Impression(s) from Imaging Studies Chest X-Ray 08/14/24 03:30 IMPRESSION: No evidence of acute disease. Reading Location: [facility] Discharge Plan Triage Chief Complaint: Chest Pain ED Provider: Bradley Keita Dx/Rx/DC Orders Clinical Impression: Chest pain, Hx of myocarditis Instructions: ED Chest Pain, Uncertain Cause Prescriptions: No Action amlodipine 5 mg tablet 10 mg PO DAILY escitalopram oxalate 10 mg tablet 10 mg PO DAILY Patient Comments: [NO ORIGINAL SIG] hydroxyzine HCl 50 mg tablet 50 mg PO BID PRN PRN (Reason: anxiety) ondansetron 4 mg tablet,disintegrating 4 mg PO Q6H PRN (Reason: nausea and vomiting) Qty: 20 0RF clindamycin HCl 300 mg capsule 300 mg PO TID Qty: 21 0RF Primary Care Provider: Care Physician,No Primary Referrals: Care Physician,No Primary [Primary Care Provider] - Activity Restrictions/Additional Instructions: Cardiac workup negative troponin negative x 2 chest x-ray negative. Follow-up with your cardiology team. Print Language: Vietnamese Disposition Disposition: Home, Self Care Discharge Date/Time: 08/14/24 05:53
[2024-08-14 03:48] LABS: Troponin T High Sensitivity < 6 ng/L (<=22)
[2024-08-14 03:57] LABS: Anion Gap 13 (5-15); BUN 14 mg/dL (4-19); BUN/Creat Ratio 16.1 RATIO (10-20); Calcium,Total 9.4 mg/dL (7.6-11.0); Carbon Dioxide 23.7 mmol/L (21.0-32.0); Chloride 103 mmol/L (98-108); Creatinine, Serum 0.89 mg/dL (0.70-1.20); EST Glomerular Filtration Rate 115 (>60); Estimated Creatinine Clearance 173.62 ml/min (50-250); Glucose 94 mg/dL (70-99); Potassium 3.9 mmol/L (3.3-5.1); Sodium Level 139 mmol/L (133-145)
[2024-08-14 04:03] VITALS: BP 124/88; PULSE 75; RESP 17; O2SAT 97
[2024-08-14 05:00] VITALS: BP 107/85; PULSE 74; RESP 16; O2SAT 100
[2024-08-14 05:36] LABS: Troponin T High Sens 2 HR < 6 ng/L (<=22)
[2024-08-14 05:51] VITALS: BP 113/77; PULSE 67; RESP 16; TEMP 36.8; O2SAT 97
== END 2024-08-14 05:53 | disposition home or self-care (01) ==
PROVIDERS: Emergency Provider Emergency Medicine; Visit Provider Emergency Medicine
DX: R07.9 Chest pain, unspecified (principal); I10 Essential (primary) hypertension; F17.290 Nicotine dependence, other tobacco product, uncomplicated; Z79.899 Other long term (current) drug therapy; Z86.79 Personal history of other diseases of the circulatory system
CPT/HCPCS: 71046; 80048; 84484; 85025; 93005; 99283; A4216

== ENCOUNTER 2024-11-23 11:56 | Emergency (ER) | payer MEDICARE, MEDICAID, SELFPAY ==
[2024-11-23 11:57] VITALS: BP 155/91; PULSE 82; RESP 18; TEMP 36.1; O2SAT 98; BMI 42.3
[2024-11-23 12:51] LABS: Mucous, Urine 0 SEEN /hpf (<or=2+); Red Blood Cells-Urine 0 SEEN /hpf (0-5); Squamous Epithelial Cells - UA 0 SEEN /hpf (0-5)
[2024-11-23 12:58] LABS: Color, Urine Yellow (Yellow); Glucose, Dipstick Normal (Normal); Ketone-Dipstick Negative (Negative); Leukocyte Esterase-Dipstick 100 /ul (Negative); Nitrite-Dipstick Negative (Negative); Occult Blood-Urine Negative /ul (Negative); Protein-Dipstick 30 mg/dl (Negative); Specific Gravity, Urine 1.025 (1.002-1.030); Urine Bilirubin Dipstick Negative (Negative)
--- NOTE | 2024-11-23 15:07 | EX.ED.GUMALE ---
HPI History of Present Illness Chief Complaint: Complaint Informant: patient Narrative Narrative: Patient is a 34-year-old male with history of schizoaffective disorder, pericarditis, mild cardiopathy, hyperlipidemia, hypertension and anxiety presenting with symptoms. Patient states has had 1 week of dysuria, frequency urgency and after he urinates he states it feels like there is fire in his genitals. He has had some suprapubic tenderness. He denies any penile discharge. States he has some chronic pain in his right testicle but that has been unchanged. He denies any bulge. He was told at 1 point that he maybe has a hernia in that area. He denies any fever or chills. Denies any pain with defecation. Denies any new sexual partners however notes that he does have a polyamorous relationship and his does have other partners. She has not had any symptoms. He also knows he is recently had some issues where his penis has felt raw with intercourse and other such activities. He denies any other complaints or concerns at this time. No rash reported. [facility] Medical History Hx of staphylococcal infection Depression Myocardiopathy Migraine Hyperlipidemia Fracture of neck Anxiety Hypertension Pericarditis GI bleed Myocardial infarct Home Medications ?Medication ?Instructions ?Recorded ?Last Taken ?Type amlodipine 5 mg tablet 10 mg PO DAILY 04/14/24 Unknown History escitalopram oxalate 10 mg tablet 10 mg PO DAILY 04/14/24 Unknown History hydroxyzine HCl 50 mg tablet 50 mg PO BID PRN PRN anxiety 04/14/24 Unknown History ondansetron 4 mg disintegrating 4 mg PO Q6H PRN nausea and 04/14/24 Unknown Rx tablet vomiting #20 tabs clindamycin HCl 300 mg capsule 300 mg PO TID #21 caps 05/18/24 Unknown Rx ciprofloxacin HCl 500 mg tablet 500 mg PO Q12H #28 tabs 11/23/24 Unknown Rx (Cipro) Allergy/AdvReac Type Severity Reaction Status Date / Time Penicillins Allergy Anaphylaxis Verified 11/23/24 11:58 Family History Grandmother Myocardial infarction Diabetes Seizures Grandfather CVA (cerebral vascular accident) Myocardial infarction Colon cancer Uncle Schizophrenia Aunt Schizophrenia Surgical History History of tonsillectomy Social History household members: spouse and children Smoking Status: Current every day smoker tobacco type: e-cigarettes Electronic Cigarette Use: with nicotine how long ago did patient quit smoking: Quit cigarette tobacco 2-3 yrs prior (03/21 ppd)->transition to vaping. alcohol intake: never substance use type: does not use ROS ROS ED Constitutional Constitutional ED: Denies chills or fever(s) Gastrointestinal Gastrointestinal: Reports abdominal pain; Denies nausea or vomiting Genitourinary Genitourinary ED: Reports dysuria and urinary frequency; Denies hematuria Musculoskeletal Musculoskeletal: Denies arthralgias or myalgias Hematologic/Lymphatic Hematologic/Lymphatic: Denies easy bleeding or easy bruising EXAM Physical Exam Const Vital Signs: 11/23/24 11:57 Temperature 97 F L Temperature Source Temporal Pulse Rate 82 Respiratory Rate 18 Blood Pressure 155/91 H Blood Pressure Mean 112 Pulse Ox 98 Oxygen Delivery Method Room Air Positive well nourished and well developed General Appearance ED: well developed and NAD HEENT Reports moist mucous membranes Resp normal respiratory effort Cardio regular rate and regular rhythm GI non-distended Auscultation: normoactive bowel sounds Palpation: soft and tender suprapubic Narrative: Chaperoned exam performed. Normal testicular lie, normal circumcised penis. No epididymal tenderness. No penile discharge appreciated. No rash appreciated. Normal cremasteric reflex bilaterally. Extremity normal to inspection Neuro oriented x3 and moves all extremities Sensorium / Orientation: alert Psych mental status grossly normal Skin Lesions: no lesions Rashes: no rashes MDM MDM MDM Narrative Medical decision making narrative: Patient evaluate for 1 week of worsening dysuria and penile irritation. Differential includes epididymitis, prostatitis, urinary tract infection. Physical exam not consistent with epididymitis or testicular torsion. GC chlamydia is negative. He does have some signs of urethritis with 10-25 white blood cells but no bacteria seen. Urine culture sent. Patient will be treated for prostatitis given his constellation of symptoms. Urine culture sent. Is given outpatient urology follow-up. Given first dose of Cipro in the emergency room. Given return precautions. Discharged home in stable condition. Lab Data Labs: Laboratory Results - last 24 hr 11/23/24 12:42 Urine Color Yellow Urine Clarity Clear Urine pH 6.0 Ur Specific [place] 1.025 Urine Protein 30 H Urine Glucose (UA) Normal Urine Ketones Negative Urine Occult Blood Negative Urine Nitrite Negative Urine Bilirubin Negative Urine Urobilinogen Normal Ur Leukocyte Esterase 100 H Urine RBC 0 SEEN Urine WBC 10-25 SEEN Ur Squamous Epith Cells 0 SEEN Urine Bacteria 0 SEEN Urine Mucus 0 SEEN Discharge Plan Triage Chief Complaint: Complaint ED Provider: Rimma Carcamo Dx/Rx/DC Orders Clinical Impression: Acute prostatitis, Urethritis, not sexually transmitted Instructions: ED Prostatitis Prescriptions: New ciprofloxacin HCl [Cipro] 500 mg tablet 500 mg PO Q12H Qty: 28 0RF No Action amlodipine 5 mg tablet 10 mg PO DAILY escitalopram oxalate 10 mg tablet 10 mg PO DAILY Patient Comments: [NO ORIGINAL SIG] hydroxyzine HCl 50 mg tablet 50 mg PO BID PRN PRN (Reason: anxiety) ondansetron 4 mg tablet,disintegrating 4 mg PO Q6H PRN (Reason: nausea and vomiting) Qty: 20 0RF clindamycin HCl 300 mg capsule 300 mg PO TID Qty: 21 0RF Primary Care Provider: Laura Benoit Referrals: Varun Gordon MD [Med Staff - Active Staff] - Laura Benoit PHOTOVOLTAIC TECHNICIAN-C [Primary Care Provider] - Activity Restrictions/Additional Instructions: Drink plenty of fluids. Is possibly could have some inflammation of your urethra or prostate associated with the E. coli. Your gonorrhea and chlamydia test were negative. You will put on antibiotics for this. Urine culture was sent. Will contact you if that need to be changed based on your urine culture results. Please follow-up with urology as we discussed. Print Language: [place] Disposition Disposition: Home, Self Care
[2024-11-23 15:21] VITALS: BP 130/80; PULSE 82; RESP 18; TEMP 36.1; O2SAT 98
== END 2024-11-23 15:21 | disposition home or self-care (01) ==
PROVIDERS: Emergency Provider Emergency Medicine; PCP Nurse Practitioner Family; Visit Provider Emergency Medicine
DX: N41.0 Acute prostatitis (principal); F25.9 Schizoaffective disorder, unspecified; I42.9 Cardiomyopathy, unspecified; N34.2 Other urethritis; N50.811 Right testicular pain; E78.5 Hyperlipidemia, unspecified; I10 Essential (primary) hypertension; F41.9 Anxiety disorder, unspecified; I25.2 Old myocardial infarction; F17.290 Nicotine dependence, other tobacco product, uncomplicated; Z79.899 Other long term (current) drug therapy
CPT/HCPCS: 81001; 87086; 87491; 87591; 99282

== ENCOUNTER 2025-01-14 11:57 | Emergency (ER) | payer MEDICARE, MEDICAID, SELFPAY ==
[2025-01-14 11:59] VITALS: BP 145/100; PULSE 78; RESP 16; TEMP 37; O2SAT 98; BMI 41.3
[2025-01-14] MEDS: Ketorolac 30 MG/ML Syringe IM (12:28)
[2025-01-14 12:50] VITALS: BP 133/70; PULSE 78; RESP 16; TEMP 37; O2SAT 98
--- NOTE | 2025-01-15 08:50 | ED.VIS.LOWEX ---
HPI History of Present Illness Chief Complaint: Lower Extremity Injury Narrative Narrative: Patient is a 34-year-old male presenting to the emergency department for bilateral heel and foot pain for the past 4 weeks. 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 States he has been taking ibuprofen at home to try to help with the pain. He denies any specific injury to his feet. Denies any falls. Denies any leg or back pain. Denies any fever or chills. Was able to ambulate on arrival here. Denies any numbness or weakness in his feet or legs. [facility] Medical History Hx of staphylococcal infection Depression Myocardiopathy Migraine Hyperlipidemia Fracture of neck Anxiety Hypertension Pericarditis GI bleed Myocardial infarct Home Medications ?Medication ?Instructions ?Recorded ?Last Taken ?Type amlodipine 5 mg tablet 10 mg PO DAILY 04/14/24 Unknown History escitalopram oxalate 10 mg tablet 10 mg PO DAILY 04/14/24 Unknown History hydroxyzine HCl 50 mg tablet 50 mg PO BID PRN PRN anxiety 04/14/24 Unknown History ondansetron 4 mg disintegrating 4 mg PO Q6H PRN nausea and 04/14/24 Unknown Rx tablet vomiting #20 tabs clindamycin HCl 300 mg capsule 300 mg PO TID #21 caps 05/18/24 Unknown Rx ciprofloxacin HCl 500 mg tablet 500 mg PO Q12H #28 tabs 11/23/24 Unknown Rx (Cipro) Allergy/AdvReac Type Severity Reaction Status Date / Time Penicillins Allergy Anaphylaxis Verified 01/14/25 12:01 Family History Grandmother Myocardial infarction Diabetes Seizures Grandfather CVA (cerebral vascular accident) Myocardial infarction Colon cancer Uncle Schizophrenia Aunt Schizophrenia Surgical History History of tonsillectomy Social History household members: spouse and children Smoking Status: Current every day smoker tobacco type: e-cigarettes Electronic Cigarette Use: with nicotine how long ago did patient quit smoking: Quit cigarette tobacco 2-3 yrs prior (03/21 ppd)->transition to vaping. alcohol intake: never substance use type: does not use ROS ROS ED ROS Narrative See HPI EXAM Physical Exam Narrative Exam Narrative: Vital signs: Reviewed General: Alert and oriented x 3. No acute distress HEENT: Head is normocephalic and atraumatic, sinuses nontender, pupils equal round and reactive. Nares are patent. Oropharynx and throat exams normal. Neck: Supple without lymphadenopathy nontender Cardiovascular: Regular rate and rhythm, no murmurs. No rubs or gallops. Normal S1 and S2 Respiratory: Clear to auscultation bilaterally. No wheezes, rales, rhonchi Abdominal: Soft and nontender. Normal bowel sounds. No guarding or rebound. Nonsurgical abdomen Extremities: There is no point tenderness to palpation of the medial or lateral malleoli bilaterally. No tenderness to palpation of the 1st or 5th metatarsals. There is no bruising, swelling or erythema to the feet or heels. There is no point tenderness to palpation of the heels. No defect in the Achilles tendons felt. No calf tenderness to palpation. No tenderness to palpation of the anterior shins bilaterally. DP and PT pulses are intact bilaterally. Sensation intact bilaterally. Plantar and dorsi flexion 5 out of 5 strength intact bilaterally. No erythema or warmth of any joints in the feet. Skin: No rash or redness. No wounds noted on the feet. Neurological: Cranial nerves II through XII are grossly intact. Normal strength and sensation. Normal cerebellar function The rest of the physical exam is unremarkable Const Vital Signs: 01/14/25 11:59 01/14/25 12:50 Temperature 98.6 F 98.6 F Temperature Source Oral Pulse Rate 78 78 Respiratory Rate 16 16 Blood Pressure 145/100 H 133/70 H Blood Pressure Mean 115 91 Pulse Ox 98 98 Oxygen Delivery Method Room Air MDM MDM MDM Narrative Medical decision making narrative: Patient is a 34-year-old male presenting to the emergency department for bilateral heel and foot pain. Patient was seen and examined. Vitals are stable. Patient resting bed comfortably no acute distress. Patient had no trauma or falls, there is no indication for x-ray imaging. He has no point tenderness on physical examination of the feet. No wounds. No signs of gouty or septic arthritis. Patient was able to ambulate here. He has had the pain for 4 weeks. Patient was given Toradol here for pain control. 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 Encouraged to purchase inserts for his shoes given he is on his feet a lot at work. He was also instructed to use frozen water bottles or tennis balls to roll underneath his feet to help if the possible causes of plantar fasciitis. Patient feels comfortable with the plan. Patient discharged from the Emergency Department. I do not feel that the patient's evaluation reveals any acute reason for admission at this time. I instructed them to either follow-up with their primary care physician or promptly return to the Emergency Department for reevaluation should symptoms worsen or new symptoms develop. I explained what symptoms would indicate the need to return to the emergency department. Shared decision making was used. The patient voiced understanding of the treatment plan and is agreeable with it. Clinical impression Bilateral foot pain History & Record Review Discussion w/independent historian: Patient and Significant other Discharge Plan Triage Chief Complaint: Lower Extremity Injury ED Provider: Daniela Leon Dx/Rx/DC Orders Clinical Impression: Bilateral foot pain Instructions: Shoes Choosing for Comfort, Understanding Heel Pain, ED RICE Prescriptions: No Action amlodipine 5 mg tablet 10 mg PO DAILY escitalopram oxalate 10 mg tablet 10 mg PO DAILY Patient Comments: [NO ORIGINAL SIG] hydroxyzine HCl 50 mg tablet 50 mg PO BID PRN PRN (Reason: anxiety) ondansetron 4 mg tablet,disintegrating 4 mg PO Q6H PRN (Reason: nausea and vomiting) Qty: 20 0RF clindamycin HCl 300 mg capsule 300 mg PO TID Qty: 21 0RF ciprofloxacin HCl [Cipro] 500 mg tablet 500 mg PO Q12H Qty: 28 0RF Primary Care Provider: Laura Benoit Referrals: Neymar Richardson DPM [Med Staff - Active Staff, Podiatry] - As soon as possible Laura Benoit, FLUMER-C [Primary Care Provider, Family Practice] Activity Restrictions/Additional Instructions: Take NSAIDs which include Motrin, Advil, Aleve or ibuprofen at home for pain control. Try using a frozen water bottle or tennis ball and roll it under your foot to help with pain. I would try doing this two to three times a day to help. Follow up with the foot doctor below soon as possible. Your evaluation in the Emergency Department did not reveal any acute reason for admission. However, I want to emphasize that you may be early in the course of a disease process or illness even if it is not present. For this reason you should follow-up within 24 hours for reevaluation with either your primary care physician or if necessary back here in the Emergency Department. You should return to the Emergency Department immediately if your symptoms worsen or new symptoms develop. Print Language: [place] Disposition Disposition: Home, Self Care Discharge Date/Time: 01/14/25 12:52
== END 2025-01-14 12:52 | disposition home or self-care (01) ==
PROVIDERS: Emergency Provider Student in an Organized Health Care Education/Training Program; PCP Nurse Practitioner Family; Visit Provider Student in an Organized Health Care Education/Training Program
DX: M79.671 Pain in right foot (principal); M79.672 Pain in left foot; I10 Essential (primary) hypertension; F17.290 Nicotine dependence, other tobacco product, uncomplicated; Z79.899 Other long term (current) drug therapy
CPT/HCPCS: 96372; 99282

== ENCOUNTER 2025-02-03 12:29 | Emergency (ER) | payer MEDICARE, MEDICAID, SELFPAY ==
[2025-02-03 12:30] VITALS: BP 128/96; PULSE 81; RESP 18; TEMP 36.3; O2SAT 98; BMI 40.8
--- NOTE | 2025-02-03 12:43 | ED.VIS.LOWEX ---
HPI History of Present Illness Chief Complaint: Lower Extremity Injury Informant: patient Narrative Narrative: Patient is a 34-year-old male with a history of cardiomyopathy and pericarditis, presenting with worsening heel pain over the past 3 months. - Reports heel pain worsening over the last 3 months. - Pain is located towards the back and sides of the heel, with additional discomfort on the bottom when stepping. - Experiences shooting pain up the leg. - Denies major injury or trauma. - Pain worsens with walking. - Denies pain with ankle movement or in the Achilles tendon area. - Mild pain with palpation. - Has an inflammatory issue related to an autoimmune condition affecting the heart and causing finger swelling; unable to recall the specific diagnosis. - Denies DM. PFSH PFS Medical History Hx of staphylococcal infection Depression Myocardiopathy Migraine Hyperlipidemia Fracture of neck Anxiety Hypertension Pericarditis GI bleed Myocardial infarct Home Medications ?Medication ?Instructions ?Recorded ?Last Taken ?Type amlodipine 5 mg tablet 10 mg PO DAILY 04/14/24 Unknown History escitalopram oxalate 10 mg tablet 10 mg PO DAILY 04/14/24 Unknown History hydroxyzine HCl 50 mg tablet 50 mg PO BID PRN PRN anxiety 04/14/24 Unknown History ondansetron 4 mg disintegrating 4 mg PO Q6H PRN nausea and 04/14/24 Unknown Rx tablet vomiting #20 tabs clindamycin HCl 300 mg capsule 300 mg PO TID #21 caps 05/18/24 Unknown Rx ciprofloxacin HCl 500 mg tablet 500 mg PO Q12H #28 tabs 11/23/24 Unknown Rx (Cipro) naproxen 500 mg tablet 500 mg PO BID PRN pain #14 tabs 02/03/25 Unknown Rx Allergy/AdvReac Type Severity Reaction Status Date / Time Penicillins Allergy Anaphylaxis Verified 02/03/25 12:30 Family History Grandmother Myocardial infarction Diabetes Seizures Grandfather CVA (cerebral vascular accident) Myocardial infarction Colon cancer Uncle Schizophrenia Aunt Schizophrenia Surgical History History of tonsillectomy Social History household members: spouse and children Smoking Status: Current every day smoker tobacco type: e-cigarettes Electronic Cigarette Use: with nicotine how long ago did patient quit smoking: Quit cigarette tobacco 2-3 yrs prior (03/21 ppd)->transition to vaping. alcohol intake: never substance use type: does not use ROS ROS ED Constitutional Constitutional ED: Denies chills or fever(s) Musculoskeletal Musculoskeletal: Reports extremity pain; Denies neck pain Integumentary Denies Abrasions, rash or wounds Neurologic Neurologic: Denies paresthesias or weakness EXAM Physical Exam Const Vital Signs: 02/03/25 12:30 Temperature 97.3 F L Temperature Source Temporal Pulse Rate 81 Respiratory Rate 18 Blood Pressure 128/96 H Blood Pressure Mean 106 Pulse Ox 98 Oxygen Delivery Method Room Air Positive well nourished and well developed General Appearance ED: well developed and NAD Neck full ROM and supple Back/Spine normal ROM and normal to inspection Extremity normal to inspection and full ROM Extremity Narrative: Mild tenderness to the plantar aspect of the right heel, little anterior. No significant bony tenderness. No swelling, no signs of cellulitis, abscess, foreign body plantar aspect which is normal-appearing. Achilles is nontender and works without difficulty or limitation. No other areas of tenderness. Neuro oriented x3, no focal motor deficits and no sensory deficits noted Sensorium / Orientation: alert Psych mental status grossly normal and thought process normal Skin no wounds Rashes: no rashes MDM MDM MDM Narrative Medical decision making narrative: Assessment: The patient is a 34-year-old male with PMH of myocardiopathy and pericarditis presenting for progressively worsening right heel pain over 3 months. Exam shows mild tenderness at the plantar aspect of the heel without fluctuance, cellulitis, or foreign body, and ankle range of motion is intact. Absence of trauma and focal findings makes plantar fasciitis the most likely diagnosis; imaging is unlikely to change management expert. Plan: - Prescribed anti-inflammatory medication - Advised OTC orthotic shoe insert - Referral to podiatry for further evaluation - Provided work note per patient request Diagnoses: Plantar fasciitis of right foot Discharge Plan Triage Chief Complaint: Lower Extremity Injury ED Provider: Wilfrid Erazo Dx/Rx/DC Orders Clinical Impression: Plantar fasciitis, right Instructions: Plantar Fasciitis: Exercises, ED Plantar Fasciitis Prescriptions: New naproxen 500 mg tablet 500 mg PO BID PRN (Reason: pain) Qty: 14 0RF No Action amlodipine 5 mg tablet 10 mg PO DAILY escitalopram oxalate 10 mg tablet 10 mg PO DAILY Patient Comments: [NO ORIGINAL SIG] hydroxyzine HCl 50 mg tablet 50 mg PO BID PRN PRN (Reason: anxiety) ondansetron 4 mg tablet,disintegrating 4 mg PO Q6H PRN (Reason: nausea and vomiting) Qty: 20 0RF clindamycin HCl 300 mg capsule 300 mg PO TID Qty: 21 0RF ciprofloxacin HCl [Cipro] 500 mg tablet 500 mg PO Q12H Qty: 28 0RF Stand Alone Forms: ED Work / School Excuse Primary Care Provider: Laura Benoit Referrals: Sarksi Ngo DPM [Med Staff - Active Staff, Podiatry] - As soon as possible Activity Restrictions/Additional Instructions: - Fill and take the prescribed anti-inflammatory medication as directed to help reduce heel inflammation and pain. - Purchase [id number] orthotic inserts and place them in your shoes for added heel support. Consider trying the attached exercises until you follow-up. - Follow up with the podiatry specialist to complete your evaluation and discuss further management. - Provide the work note you received to your employer as needed. Print Language: [place] Disposition Disposition: Home, Self Care
[2025-02-03 12:51] VITALS: BP 139/102
[2025-02-03 12:54] VITALS: PULSE 78; RESP 16; O2SAT 98
[2025-02-03 12:55] VITALS: BP 139/102; PULSE 78; RESP 16; TEMP 36.3; O2SAT 98
== END 2025-02-03 13:00 | disposition home or self-care (01) ==
LOC: ED 12:58
PROVIDERS: Emergency Provider Emergency Medicine; PCP Nurse Practitioner Family; Visit Provider Emergency Medicine
DX: M72.2 Plantar fascial fibromatosis (principal); I10 Essential (primary) hypertension; E78.5 Hyperlipidemia, unspecified; M79.671 Pain in right foot; I25.2 Old myocardial infarction; Z79.899 Other long term (current) drug therapy; F41.9 Anxiety disorder, unspecified; F32.A Depression, unspecified; F17.290 Nicotine dependence, other tobacco product, uncomplicated
CPT/HCPCS: 99282

== ENCOUNTER 2025-02-08 08:00 | Outpatient (RCR) | payer MEDICARE, MEDICAID, SELFPAY ==
--- NOTE | 2025-02-09 14:09 | BH.COMM_ITS ---
Communication Note Communication with Client Communication Note: Met with pt to complete initial paperwork. Discussed case with Dr. Urias and pt will be admitted to [facility] tx with a diagnosis of F33.2 MDD.
--- NOTE | 2025-02-09 14:09 | BH.COMM ---
Communication Note Communication with Client Communication Note: Met with pt to complete initial paperwork. Discussed case with Dr. Urias and pt will be admitted to [facility] tx with a diagnosis of F33.2 MDD.
--- NOTE | 2025-02-10 09:10 | BH.NA_ITS ---
Physical Data Vital Signs Pulse Rate: 82 Blood Pressure: 151/96 Height/Weight Height: 1.85 m Weight:: 136.078 kg Weight in Pounds: 300.0 lbs Functional Assessment Sleep Pattern Describe any problems with sleeping: Client states he sleeps 3-4 hours per night and states this is his usual. Sensory/Communication Assess Vision Problems Do you have any vision problems?: Glasses Communication Problems Do you have difficulty understanding what people are saying?: No Medical Problems/History Cardiac Conditions Cardiovascular: Hypertension, Myocardial infarction (in 2023- not due to blockage), Hyperlipidemia and Other (See comments) (myocardiopathy, pericarditis) Neurological Conditions Neurological: Other (See comments) (migraines) Gastrointestinal Conditions Gastrointestinal: Other (See comments) (GI bleed- states he has had dive rticulitis and has had GI bleeding off and on for a long time) Pain Assessment Do you have acute or chronic pain?: Yes (left foot- was prescribed Naproxen for foot pain) Family History Family History Grandmother Myocardial infarction Diabetes Seizures Grandfather CVA (cerebral vascular accident) Myocardial infarction Colon cancer Uncle Schizophrenia Aunt Schizophrenia Surgical History Surgical History Have you had any surgeries? If so, list type and date:: Yes (tonsillectomy, foot) Substance Abuse Substance Abuse Please describe substance abuse in the last 30 days:: Client denies alcohol use. Client states he had been smoking cigarettes since the age of 10 and switched to vaping about 8 years ago and still vapes daily. Client denies substance use. Client states he drinks coffee and Coke Zero daily with caffeine. Mental Status Summary Mental Status Significant Findings/Observations on Appearance and Mood:: Client is alert and oriented x 4. Client is casually groomed. Client is cooperative with assessment. Client makes good eye contact. Client's voice has normal rate and volume. Client has a somewhat restricted affect. Client makes logical associations and has normal processing. Client states he rarely has hallucinations, stating he has to be really stressed out for that to happen, and denies any recently. Client denies SI at this time, but also states I wouldn't really be honest about suicidal thoughts anyway if I had them, they are hard to put into words and admit. Suicide Assessment Suicidal Ideation Are you currently or have you been suicidal in the past?: Yes Suicidal Intentional Rating Scale (SIRS): Suicidal thoughts (past) Physician Notification Past Psychiatric History MH Treatment Hx Past Psychiatric Medications:: Trazodone, Geodon, Wellbutrin, Zoloft - states he would not want to take any of these again Age of first mental health symptoms: Client states he first had treatment for mental health around age 10. Client states he was diagnosed with schizoaffective disorder around age 18, but states that he was later told he was misdiagnosed. Describe (age, circumstance, etc) any past hospitalizations: x7 total. Last hospitalization was in 2023 for depression after his NC. Client last had a suicide attempt in 2023. Current providers for mental health treatment (counselor, psychiatrist, major case detective, etc.): None. Fall Risk Assessment Age Age: Less than 60 Mental Status Mental Status: Willing & able to ask for assistance when needed Physical Status Physical Status: No problems Impairments Impairments: None Elimination Elimination: Continent AND independent Gait or Balance Gait or Balance: Walks independently Hx of Falls History of falls in the past 6 months: No known history Medications/Substances Psychotropics:: Antidepressants Medications/substances used within the past 24 hours or ordered to administer: 1-2 of the medications/substances listed above Total Score Total Points:: 1 RN Summary of Impressions Impressions Recommendations Impression: General Medical Conditions: Discussed with client about order for Naproxen for pain (states he has not started taking it yet) and his complaint of chronic GI bleeding and how NSAID's can cause bleeds. Client states his PCP is aware of his GI history, he gets his blood counts done every few months and his H&H is on the low side of normal. Level of Care How do the client's current symptoms and functional deficits support need for this level of care?: Client referred self to IOP for depression. Client states he has overall felt depressed for many years, but states over the last 5 years it has been very hard to pull himself out of low depression. Client reports erratic moods and emotional dysregulation. Client states he has not had SI in the last week, but also admits I wouldn't really be honest about suicidal thoughts anyway if I had them, they are hard to put into words and admit. Client states I don't have high hopes that anything is really going to make me feel better because nothing has. IOP will promote gains and prevent further decompensation while providing social support and skills training. Nutritional Screen Height/Weight Height: 1.85 m Weight:: 136.078 kg Weight in Pounds: 300.0 lbs Nutrition Screening Normal Weight: 136.078 kg Normal/Usual Weight in Pounds: 300.0 lbs Have you lost weight without trying: No (has been on Wegovy and intentionally losing weight) Have you been eating poorly because of a decreased appetite: No Recently been on tube feeds, TPN, or have any nutritional access device in place: No Have any large open wounds or wounds that are not healing: No Calculated Weight Change: 0 Change in weight Score: 0 MST Screening Tool Score: 0
--- NOTE | 2025-02-10 09:49 | BH.DR.ITP ---
Initial Treatment Plan Patient Information Visit Information: ADMISSION DATE: EXPECTED LOS: 6-8 weeks Diagnoses:: MDD, PTSD Problems/Symptoms Problem #1:: MDD Symptom:: Depressed mood, anhedonia, poor appetite, poor sleep with low energy, difficulty with concentration and memory, frequent crying spells Problem #2:: PTSD Symptom:: Poor sleep, nightmares, intrusive thoughts, avoidance, persistent negative beliefs about self and world, persistent negative emotions, inability to experience positive emotions
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
[2025-02-10 11:11] VITALS: BP 151/96; PULSE 82
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
--- NOTE | 2025-02-12 09:00 | BH.SGPN.GN ---
Behaviors/Verbalizations/Mental Status: [] Eye contact is good. Motor activity is appropriate. Appearance is casual. Speech is Appropriate. Mood is depressed and irritable. Affect is congruent. Thoughts are linear and logical. No evidence of psychosis. Reviewed daily check in sheet and no reports of suicidal ideations Client Response/Progress/Benefit: [] Pt participated at times during the group discussions. Attentive. Daily symptom tracker notes 07/20 for depression and irritability. Pt's check in was very brief stating that his holiday went well. That's it. Struggles to engaged and be vulnerable in front of peers during process group. Will often contribute if a topic begins on something not mental health related (i.e. food, music, etc). Limited progress noted. Limited benefit noted as he does not engage or contribute. Will continue in IOP to prevent decompensation, stabilize mood, and increase healthy coping. Narrative Note: []
--- NOTE | 2025-02-12 10:00 | BH.SGPN.GN ---
Behaviors/Verbalizations/Mental Status: [] Eye contact is fair. Motor activity is appropriate. Appearance is casual. Speech WNL. Mood is depressed. Affect is constricted. Thoughts are linear and logical. No evidence of psychosis. Client Response/Progress/Benefit: [] Client was an semi-active participant in group discussion and experiential activity. Attentive during psychoeducation on resilience. Participated in interactive discussion with peers on the definition of resilience. Group identified that resiliency can be impacted by; past experiences, personality, and current mental health state. Group also worked together to identify the benefits of being resilient and how it is related to mental health. Worked well with peers in small group in which they identified factors that contribute to resilience. Benefited from increased awareness of resilience and the factors that contribute to building resilience. Will continue in IOP to improve perspective, increase use of healthy coping, and prevent decompensation.
--- NOTE | 2025-02-12 11:03 | BH.SGPN.GN ---
Behaviors/Verbalizations/Mental Status: []Pt alert and oriented, neatly dressed and groomed. Eye contact good. Motor activity appropriate. Speech within normal limits. Affect constricted, mood depressed. Thoughts linear, logical, no signs of hallucinations or delusions. Client Response/Progress/Benefit: [] Pt responded well to session AEB completing the resilience worksheet provided. Pt participated in the discussion and worked cooperatively with group to identify strategies to enhance each of the components discussed. pt reports belief they use the trait ?accepting change is life? and pt wants to work on being more aware of his emotions and triggers. Pt seemed to benefit from discussing strategies for improving personal resilience and identifying resilience traits pt already possesses. Will continue IOP tx to prevent decompensation, gain distress tolerance skills, and improve daily functioning. Narrative Note: []
== END 2025-02-14 23:59 ==
LOC: BHIOP 08:00
PROVIDERS: PCP Nurse Practitioner Family; Referring Provider Internal Medicine; Visit Provider Internal Medicine
DX: F33.2 Major depressive disorder, recurrent severe without psychotic features (principal); F43.10 Post-traumatic stress disorder, unspecified
CPT/HCPCS: H2020; S9480; 90832

== ENCOUNTER 2025-02-15 08:07 | Outpatient (RCR) | payer MEDICARE, MEDICAID, SELFPAY ==
--- NOTE | 2025-02-15 09:00 | BH.SGPN.GN ---
Behaviors/Verbalizations/Mental Status: [] Eye contact is poor. Motor activity is appropriate. Appearance is casual. Speech is Appropriate. Mood is depressed and irritable. Affect is congruent. Thoughts are linear and logical. No evidence of psychosis. Reviewed daily check in sheet and no reports of suicidal ideations Client Response/Progress/Benefit: [] Pt did not participate in group discussions. Choose not to check-in either. ? got nothing to say?. No progress noted. No benefit from group as he appeared disinterested and disengaged. Will continue in IOP to prevent decompensation, increase healthy coping, and improve functioning. Narrative Note: []
--- NOTE | 2025-02-15 10:10 | BH.SGPN.GN ---
Behaviors/Verbalizations/Mental Status: []Pt alert and oriented, casual appearance. Eye contact good. Motor activity appropriate. Speech within normal limits. Affect constricted, mood dysthymic. Thoughts linear, logical, no signs of hallucinations or delusions. Client Response/Progress/Benefit: [] Pt responded well to session AEB sharing and listening attentively to others. Group provided examples of types of support (professional, pets, hobbies, community, spouse, agatha, etc) as well as benefits of having social support, including: validation, get perspective, and accountability. Pt also participated in group discussion regarding the barriers to accessing support. Pt participated in experiential activity illustrating the impact communication, boundaries, and patience play in creating healthy support systems. Pt appeared to benefit from increased knowledge of the benefits of social support and greater self-awareness. Pt to continue IOP to increase consistent use of healthy coping skills, challenge negative thoughts, and prevent decompensation.
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
--- NOTE | 2025-02-19 10:15 | BH.SGPN.GN ---
Behaviors/Verbalizations/Mental Status: [] Eye contact is good. Motor activity is appropriate. Appearance is casual. Speech is Appropriate. Mood is euthymic. Affect is congruent. Thoughts are linear and logical. No evidence of psychosis. Client Response/Progress/Benefit: [] Client was an active participant during interactive group discussions. Attentive during psychoeducation on the six types of boundaries (physical, emotional, intellectual, sexual, time, and material). Along with peers contributed to interactive discussion on defining what a boundary is in mental health. Client along with peers identified challenges to setting boundaries which included; fear of other's response, guilt, fear of rejection, fear of disappointing the other person, feeling like one is unworthy to set boundaries, etc. Client along with peers identified the benefits to setting boundaries such as increased confidence, decreased stress, increased time for self-care, and better quality of life. Group discussed the mental health benefits to establishing boundaries at work, school, and home. Client benefited from increased awareness and insight on the importance/benefit to setting health boundaries. Will continue in IOP to prevent decompensation,increase emotional regulations kills, and improve functioning. Narrative Note: []
--- NOTE | 2025-02-19 11:49 | PCM.BH.PN_ITS ---
Intake Vital Signs 02/10/25 11:11 02/19/25 11:49 Height 1.85 m 1.85 m Weight: 136.078 kg BP 151/96 H Pulse 82 Intake Visit Reasons: f/u mdd and ptsd Allergies Penicillins Allergy (Verified 02/10/25 09:09) Anaphylaxis Medications ?Medication ?Instructions ?Recorded ?Confirmed ?Type hydroxyzine HCl 50 mg tablet 50 mg PO BID PRN PRN anxi ety 04/14/24 02/10/25 History ondansetron 4 mg disintegrating 4 mg PO Q6H PRN nausea and 04/14/24 02/10/25 Rx tablet vomiting #20 tabs naproxen 500 mg tablet 500 mg PO BID PRN pain #14 t abs 02/03/25 02/10/25 Rx semaglutide (weight loss) 2.4 mg subcut 02/10/25 Hist ory mg/0.75 mL subcutaneous pen injector (Wegovy) amlodipine 5 mg tablet 5 mg PO DAILY #30 tabs 02/19 Rx escitalopram oxalate 20 mg tablet 20 mg PO DAILY #30 t abs 02/19/25 Rx (Lexapro) prazosin 1 mg capsule See Rx Instructions .Route 1 04/22/24 Rx .COMPLEX #60 caps HPI () History of Present Illness History provided by: patient Chief complaint: f/u MDD and ptsd HPI: -Current psychiatric medications: Lexapro 15 mg, hydroxyzine 50 mg twice daily as needed -SUBJECTVE: Continues to have difficulty with depression, mood lability, dissociative episodes and concentration. Has stopped the guanfacine because he did not think it was helpful and does not think he has noticed much of a difference. Does note he has been having some nightmares recently but then will affect his mood for multiple days. Still intermittently will have suicidal thoughts that will go away after roughly 30 minutes with no exacerbating factors or relieving factors and notes they seem to spontaneously improve. Does feel like the increase in Lexapro has evened out his mood some Exam Mental Status Exam- Psych () Appearance casually dressed and adequately groomed Attitude cooperative and engaged Activity/Motor Behavior appropriate eye contact and psychomotor slowing Speech regular rate and other (Decrease in inflexion) Mood anhedonic Affect congruent and restricted Thought Process linear and logical Thought Content no delusions and no hallucinations Suicidal Ideation other (Occasional but self limited and did not note any intent) Homicidal Ideation none Attention intact Concentration intact Sensorium/Orientation awake and alert Memory/Cognition intact Insight fair Judgement fair Assessment & Plan () Assessment & Plan (1) MDD (major depressive disorder), recurrent severe, without psychosis: Plan: Continues to have symptoms of depression, notes that the Lexapro increased to 15 was somewhat helpful so we will further increase this to 20 mg. May need to consider adjunct of medications in the future however patient has tried many medications and is hesitant to retrial any of this medicines making options somewhat more limited. Was reporting problems with concentration and attention but seems that this is more based in anxiety and depression than an underlying ADHD however could consider neuropsych testing in the future if there are further concerns but presently addressing his underlying depression I feel will be most beneficial. He did stop guanfacine as he did not find it helpful (2) PTSD (post-traumatic stress disorder): Plan: Do suspect patient has PTSD as previously mentioned rooted in childhood trauma. Increasing Lexapro, will add prazosin given his problems with nightmares especially and affecting his mood for multiple days after he has them. Discussed that patient will need long-term management therapy. Discussed patient's previous diagnosis of bipolar disorder again, cannot elicit any history consistent with bipolar disorder, do not think patient meets criteria for bipolar disorder, discussed this with patient Medications: New escitalopram oxalate (Lexapro) 20 mg PO DAILY 30 tabs 0RF prazosin Take 1mg at bedtime for 5 days then increase to 2mg 60 caps 0RF Refilled amlodipine 5 mg PO DAILY 30 tabs 0RF Discontinued escitalopram oxalate Discontinued Reason: MD Ordered 15 mg (1.5 x 10 mg) PO DAILY 30 days 45 tabs 0RF Charges/Coding Behavior Health Behavior Health EST Pt E/M: 96826 Est Pt Level IV
--- NOTE | 2025-02-22 09:00 | BH.SGPN.GN ---
Behaviors/Verbalizations/Mental Status: [] Pt alert and oriented, Casually dressed and groomed. Eye contact poor. Motor activity appropriate. Speech within normal limits. Affect congruent, mood depressed. Thoughts linear, logical, no signs of hallucinations or delusions. Reviewed pt?s symptom tracker today, denies suicidal ideation, plan, and intent.02/22/25 Client Response/Progress/Benefit: []Pt was an active participant in group discussions. Attentive. Per patients daily symptom tracker, pt indicates a 2/5 for depression and a 2/5 for anxiety, with 5 being severe. When asked, pt stated that he did not have any mental health positives or stressors to share. He stated that his mood was depressed and that's it. Peers and therapist challenged pt to list positives, explaining why it was important, and highlighting some of pt's strengths that he could use as positives. Pt was appreciative of peer support, but chose not to share, stating that he felt that he had done nothing to deserve counting as a positive. Pt seemed to benefit from support from peers. Will continue IOP tx to promote healthy coping mechanisms, decrease negative thinking patterns, and prevent decompensation.
--- NOTE | 2025-02-22 10:10 | BH.SGPN.GN ---
Behaviors/Verbalizations/Mental Status: [] Eye contact is poor. Motor activity is appropriate. Appearance is casual. Speech is Appropriate. Mood is depressed and irritable. Affect is congruent. Thoughts are linear and logical. No evidence of psychosis. Client Response/Progress/Benefit: [] Pt participated at times during the group discussion, providing input and remaining attentive during psychoeducation. Pt contributed at times during interactive discussion on the consequences of unhealthy expression of emotions. Provided input on the 3 important stages to managing emotions which included Awareness, Regulation, and Communication. Pt was able to relate and make connections between the experiential activity and the overall topic. Benefited from increased awareness of how stress and emotions can impact one's ability to communicate. Will continue in IOP to prevent decompensation, improve daily functioning, and increase the use of healthy coping skills. Narrative Note: []
--- NOTE | 2025-02-26 09:05 | BH.SGPN.GN ---
Behaviors/Verbalizations/Mental Status: [] Pt alert and oriented, neatly dressed and groomed. Eye contact good. Motor activity appropriate. Speech within normal limits. Affect constricted, mood irritable. Thoughts linear, logical, no signs of hallucinations or delusions. Reviewed pt?s symptom tracker, no risk for suicidal ideation, plan, or intent 02/26/25. Client Response/Progress/Benefit: []Pt was an active participant in group discussions. Attentive. Able to identify mental health wins including standing up for himself at work and continuing to show up for himself at IOP. Pt's stressor today is ?I?m getting discriminated against at work for being a man.? The group offered pt suggests managing this stressor and emotional support which pt reported was helpful. Pt is feeling ?irritable? this morning. Pt receptive to feedback from peers. Benefited from group support, encouragement, and feedback. Progress noted. Pt will continue IOP tx to prevent decompensation, improve daily functioning, and increase distress tolerance. ? Narrative Note: []
--- NOTE | 2025-02-26 14:15 | BH.MDN_ITS ---
Multi-Disciplinary Note Note 45-min Individual: Time Started:: 11:35 Date: 02/26/25 Purpose of session/treatment goals addressed:: To gain insight to pt's emotional dysregulation and depressive triggers and to give coping skills. Eye Contact:: Fair Motor Activity:: Appropriate Appearance:: Casual Speech:: Appropriate Mood:: Irritable (at times) and Depressed Affect:: Constricted Thoughts:: Linear, Logical and No evidence of hallucinations/delusions noted Staff Interventions:: thought challenging, motivational interviewing, psychoeducation on: (attachment styles), rapport building, strengths perspective, goal setting and other (gave homework to reflect on his attachment style and his triggers.) Client Response:: Pt responded well to session, open to meeting with therapist. Pt shared he is still feeling numb and depressed most of the time. Pt is still having issues within his marriage and he reports there are still arguments between him and his . Pt also notes work stress that has been irritating pt lately. Pt talked about his marriage, specifically their polyamory lifestyle. Pt shared about how they got into to this as well as how it has evolved throughout the years. As pt was sharing, he mentioned that he feels fear of abandonment but also happiness for his when she goes out on dates with other men. The last relationship his got into led to a lot of conflict between pt and his as well as mental health decompensation for pt. Pt notes he has gotten over it however, pt's emotions and reflections about that time indicate it is still bothering him. When therapist addressed this, pt was initially upset and became defensive, but then he became more receptive. This led to a discussion on attachment styles and how different attachment styles can negatively impact each other. Pt felt this related to his situation and he could see the connection between his attachment and how it leads to some maladaptive defensive mechanisms and coping skills. Pt willing to explore this further for homework. Risks/Concerns:: Pt reports chronic, passive SI, but denies any active SI, plan, or intent as of 02/26/25. Progress Toward Goals/Plan:: Limited progress in symptom reduction/functioning improvement. Pt is consistent with attendance, but he is still guarded during group sessions. Pt did appear more engaged in individual se ssion today-less resistant to challenging perspective. Pt was receptive to homework on attachment styles and pt was more receptive today of gentle thought challenging by therapist. Pt will continue IOP tx to prevent decompensation, improve daily functioning, and gain healthy coping skills to manage triggers. Time Stopped:: 12:20
--- NOTE | 2025-03-01 09:05 | BH.SGPN.GN ---
Behaviors/Verbalizations/Mental Status: [] Eye contact is good. Motor activity is appropriate. Appearance is casual. Speech is Appropriate. Mood is depressed and irritable. Affect is congruent. Thoughts are linear and logical. No evidence of psychosis. Reviewed daily check in sheet and no reports of suicidal ideations Client Response/Progress/Benefit: [] Pt participated at times during the group discussions. Attentive during video on mindfulness and provided feedback. Shared that he had a good weekend. Engaged with family and kids which was beneficial. He is currently focused on trying to contract his bio-father however is finding resistance and obstacles. Benefited from group support, encouragment, and feedback. Will continue in IOP to prevent decompensation, increase healthy coping, and improve functioing. Narrative Note: []
--- NOTE | 2025-03-01 10:05 | BH.SGPN.GN ---
Behaviors/Verbalizations/Mental Status: []Eye contact is fair-closed at times. Motor activity is appropriate. Appearance is neat. Speech is Appropriate. Mood is apathetic. Affect is congruent. Thoughts are linear and logical. No evidence of psychosis. Client Response/Progress/Benefit: [] Pt was a passive participant in group discussions-mostly listening to civil structural engineer. Attentive during psychoeducation on the 4 communication styles (Passive, Passive-Aggressive, Aggressive, and Assertive) and the obstacles to effective communication. Contributed during interactive discussion on the benefits of communicating effectively. Group identified the benefits and disadvantages to the different communication styles. Pt believes that they are primarily passive as pt feels that his needs are often less important than his /kids. Benefited from increased understanding of communication styles and how these can impact effective communication. Will continue in IOP to prevent decompensation, improve daily functioning, and increase distress tolerance skills. Narrative Note: []
--- NOTE | 2025-03-05 10:10 | BH.SGPN.GN ---
Behaviors/Verbalizations/Mental Status: []Pt alert and oriented, casually dressed and groomed. Eye contact good. Motor activity appropriate. Speech within normal limits. Affect congruent, mood euthymic. Thoughts linear, logical, no signs of hallucinations or delusions. Client Response/Progress/Benefit: [] Pt was an attentive and active participant, AEB taking notes and providing input in group discussion. Attentive during psychoeducation. Pt engaged during interactive discussion in which the group defined self-care and discussed its benefits. Group discussed barriers and benefits to self-care. Identified benefits such as being more productive, less physical pain, feeling happier, more patience, and being more capable. Pt participated in small groups where they worked to identify and challenged common self-care ?myths?. Benefited from increased awareness of self-care, its benefits, and the consequences of not utilizing self-care strategies. Pt connected with not practicing self-care because he worries how others will perceive it and if they will ?retaliate.? Will continue IOP tx to promote use of healthy coping skills, improve daily functioning, and increase self-confidence. Narrative Note: []
--- NOTE | 2025-03-05 14:12 | BH.MDN ---
Multi-Disciplinary Note Note 45-min Individual: Time Started:: 09:20 Date: 03/05/25 Purpose of session/treatment goals addressed:: To work on goal #1 of pt's tx plan. Eye Contact:: Good Motor Activity:: Appropriate Appearance:: Neat Speech:: Appropriate Mood:: Depressed (underlying depressed mood reported by pt.) and Other (hopeful and motivated) Affect:: Congruent Thoughts:: Linear, Logical and No evidence of hallucinations/delusions noted Staff Interventions:: thought challenging, CBT techniques, strengths perspective, goal setting, taught coping skills (gratitude and dialectical thinking. ) and other (reviewed homework on attachment styles and triggers.) Client Response:: Pt responded well to session, open to meeting with therapist. Pt shared he is doing okay, but I'm still having low lows. Pt completed his homework from last session and feels that he is both anxious and avoidant with his attachment and he feels his is the same. Pt shared he has not yet started his sleep medication because he has been switching between 2nd and 3rd shift. Pt stated he notices his moods seem to worsen around this time of year (holidays) because he does not feel the zacarias people feel. Pt also noted that he is still not finding enjoyment in general and pt is not sure of the last time he felt zacarias. Pt receptive to learning about dialectical thinking as well as practicing gratitude to pay attention to small joys each day. Pt was open to this helping him gain more awareness of positives in his day because pt shared I tend to always look at how things will go badly. Pt stated he is also gaining awareness of how his polyamorous marriage is impacting him in both positive and negative ways. Positively, pt feels like he is now reaching out to people without guilt and he has some platonic dates this weekend. Negatively, pt shared he feels the ick when his talks about her intimate interactions with people she dates. Pt noted that he would not like to talk about this, but his told him I don't want boundaries. Pt receptive to emotional validation and discussion on boundaries not being a bad thing in relationships. Risks/Concerns:: Pt denies any active SI, plan, or intent to this therapist as of 03/05/25. Progress Toward Goals/Plan:: Progress noted as pt shared he is seeing benefits from challenging his perspective and being more mindful of his emotional reactions when triggered. Pt also feels he benefitted from learning about defense mechanisms. Pt receptive to working on thought challenging homework as pt reports he struggles with not finding enjoyment in life which reinforces his depressed mood and apathy. Pt will continue IOP tx to promote mood stability, improve thought challenging skills, and reduce shutting down. Time Stopped:: 10:00
--- NOTE | 2025-03-08 09:00 | BH.SGPN.GN ---
Behaviors/Verbalizations/Mental Status: [] Pt alert and oriented, neatly dressed and groomed. Eye contact good. Motor activity appropriate. Speech within normal limits. Affect constricted, mood irritable. Thoughts linear, logical, no signs of hallucinations or delusions. Reviewed pt?s symptom tracker, no risk for suicidal ideation, plan, or intent 03/08/25. Client Response/Progress/Benefit: []Pt was an active participant in group discussions and provided feedback to peers. However, when asked to share, pt declined. Pt has declined to share in process group several times which is both pt's right and a potential barrier to progress. Pt will continue IOP tx to prevent decompensation, increase application of healthy coping skills, and improve self-compassion. Narrative Note: []
--- NOTE | 2025-03-08 10:10 | BH.SGPN.GN ---
Behaviors/Verbalizations/Mental Status: []Pt alert and oriented, casually dressed and groomed. Eye contact good. Motor activity appropriate. Speech within normal limits. Affect congruent, mood anxious and dysthymic. Thoughts linear, logical, no signs of hallucinations or delusions. Client Response/Progress/Benefit: [] Pt took notes and contributed to group discussions. Attentive during psychoeducation on growth mindset. Interactive group discussion on fixed mindset in which group verbalized their current fixed mindsets and how they affect their mental health. Pt shared common fixed mindset thoughts they have. Pt shared a personal fixed thought I?m a side character in everyone's lives.? Pt able to connect negative impact fixed thoughts have on functioning. Pt benefited from increased awareness of growth mindset and fixed thoughts and how fixed thoughts impact their mental health. Will continue IOP tx to promote use of healthy coping skills, challenge negative thoughts, and prevent decompensation. Narrative Note: []
--- NOTE | 2025-03-08 11:10 | BH.SGPN.GN ---
Behaviors/Verbalizations/Mental Status: []Pt alert and oriented, casually dressed and groomed. Eye contact fair. Motor activity appropriate. Speech within normal limits. Affect congruent, mood dysthymic. Thoughts linear, logical, no signs of hallucinations or delusions. Client Response/Progress/Benefit: [] Pt was an active participant during activity and discussion. Pt did well to remain attentive and participate as group worked on identifying characteristics and benefits of adopting a growth mindset. Worked with fellow participants in reframing the example fixed thoughts into growth mindset thoughts. Pt worked on changing own fixed thought. Pt attentive during discussion about different strategies that can help with fostering a growth mindset. Pt appeared to benefit from challenging own thoughts and engaging in the activity. Pt will continue IOP tx to reinforce healthy coping skills, challenge negative thoughts, and prevent decompenation.
--- NOTE | 2025-03-12 13:30 | BH.MDN_ITS ---
Multi-Disciplinary Note Note 45-min Individual: Time Started:: 11:20 Date: 03/12/25 Purpose of session/treatment goals addressed:: To work on goal #1 of pt's tx plan. Another goal was to discuss acceptance. Eye Contact:: Fair Motor Activity:: Appropriate Appearance:: Casual Speech:: Appropriate Mood:: Anxious and Depressed Affect:: Constricted Thoughts:: Linear, Logical and No evidence of hallucinations/delusions noted Staff Interventions:: thought challenging, motivational interviewing, CBT techniques, strengths perspective and other (DBT techniques (acceptance), homework on reflection of possible outcomes.) Client Response:: Pt responded well to session, at first pt was struggling to keep his eyes open, but he became more alert as the session went on. Pt stated his work schedule has been busy and he has been working a lot of hours in a row so pt has not been able to get much sleep. Pt reports his work is still a primary stressor and pt would like a new job. Pt stated he feels discriminated against and there is tension between pt and some of his co- workers. Pt is considering working at [employer] and plans to take steps to apply. At home pt reports some things are going well, such as [place], but pt continues to identify his marriage as a primary stressor. Pt shared his conflicting feelings around he and his 's polyamorous lifestyle. Pt can note benefits of this, but pt more recently in sessions has been identifying things he is not comfortable with or things that bother him. Pt receptive to discussion on acceptance and to reflect on the potential outcomes (short term and prison) of the options he has within his marriage. Pt also feels that it would beneficial if his got mental health therapy. Pt was encouraged to get some rest today. Risks/Concerns:: Pt reports daily, chronic SI that is passive. Pt denies any active SI, plan, or intent as of 03/12/25. Pt is future oriented and reports still looking to find another job. Progress Toward Goals/Plan:: Progress noted as pt shared he is seeing benefits from his medication and with challenging his perspective. However, pt reports his moods continue to be predominately low, especially currently due to his work schedule. Pt shared he is very tired today and pt acknowledges this impacts his mood and outlook. Pt also continues to struggle with opening up during group sessions AEB pt declining to share in several groups. Pt notes his home and work stressors continue to significantly impact his mental health. Pt will continue IOP tx to promote mood stability, improve thought challenging skills, and reduce shutting down. Time Stopped:: 12:05
--- NOTE | 2025-03-15 11:15 | BH.SGPN.GN ---
Behaviors/Verbalizations/Mental Status: [] Eye contact is good. Motor activity is appropriate. Appearance is casual. Speech is Appropriate. Mood is anxious and content. Affect is congruent. Thoughts are linear and logical. No evidence of psychosis. Client Response/Progress/Benefit: [] Pt was a semi-engaged participant in group discussion and activity, mostly listening as others contributed. Worked with group to identify strategies to help overcome barriers and obstacles to desired reality. Group developed strategies for the common barriers. Identified personal barriers to desired reality and was able to identify a skill of opposite action and reaching out to address barrier of loneliness. Pt seemed to benefit from increased repertoire of healthy coping skills/strategies to overcome common barriers to moving forward. Will continue in IOP to prevent decompensation, stabilize emotions, increase healthy coping, and improve functioning. Narrative Note: []
--- NOTE | 2025-03-17 10:07 | PCM.BH.PN_ITS ---
Intake Vital Signs 02/10/25 11:11 02/19/25 11:49 03/17/25 10:07 Height 1.85 m 1.85 m 1.85 m Weight: 136.078 kg BP 151/96 H Pulse 82 Intake Visit Reasons: f/u MDD, PTSD Allergies Penicillins Allergy (Verified 02/10/25 09:09) Anaphylaxis Medications ?Medication ?Instructions ?Recorded ?Confirmed ?Type hydroxyzine HCl 50 mg tablet 50 mg PO BID PRN PRN anxi ety 04/14/24 02/10/25 History ondansetron 4 mg disintegrating 4 mg PO Q6H PRN nausea and 04/14/24 02/10/25 Rx tablet vomiting #20 tabs naproxen 500 mg tablet 500 mg PO BID PRN pain #14 t abs 02/03/25 02/10/25 Rx semaglutide (weight loss) 2.4 mg subcut 02/10/25 Hist ory mg/0.75 mL subcutaneous pen injector (Wegovy) amlodipine 5 mg tablet 5 mg PO DAILY #30 tabs 03/17 Rx escitalopram oxalate 20 mg tablet 20 mg PO DAILY #30 t abs 03/17/25 Rx (Lexapro) HPI () History of Present Illness History provided by: patient Chief complaint: f/u MDD, PTSD HPI: -Current psychiatric medications: Lexpro 20mg -SUBJECTVE: Does think the increase in Lexapro has helped lessen some of the significant low moods though still has a wide variations and intermittent SI with no intent to harm himself. 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 Due to this inconsistency he has not started prazosin. Notes his is very depressed and he is attempting to encourage her to get help as well. Her having her own mental health difficulties has also been challenging for him. At times does still have SI but no plans or intent to harm self. Tolerating Lexapro well Exam Mental Status Exam- Psych () Appearance casually dressed and adequately groomed Attitude cooperative and engaged Activity/Motor Behavior appropriate eye contact and psychomotor slowing Speech regular rate Mood anhedonic (Though slightly improved) Affect congruent and restricted (This slightly improved) Thought Process linear and logical Thought Content no delusions and no hallucinations Suicidal Ideation passive Homicidal Ideation none Attention intact Concentration intact Sensorium/Orientation awake and alert Memory/Cognition intact Insight fair Judgement fair Assessment & Plan () Assessment & Plan (1) MDD (major depressive disorder), recurrent severe, without psychosis: Plan: Overall is finding benefit in Lexapro, suspect we have not yet seen full benefit given the timeframe. He seems to realize a lot of the psychosocial influences on his mental health as well as his irregular schedule and the amount of time that he has been depressed and that it will take work and time and changes to lead towards improvement. Could consider Abilify as an adjunct to his Lexapro in the future or given his self-reported concerns for ADHD atomoxetine as adjunct if additional medication changes are warranted. At this time however we will continue Lexapro and encourage participation in therapy and lifestyle modifications, patient agreeable to this plan (2) PTSD (post-traumatic stress disorder): Plan: He did not start the prazosin as he has a variable sleep schedule due to working third shift. 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 Can revisit using the prazosin if he gets on a more regular sleep schedule as he is hesitant to do so otherwise. Will continue Lexapro as above Medications: New escitalopram oxalate (Lexapro) 20 mg PO DAILY 30 tabs 0RF escitalopram oxalate (Lexapro) 20 mg PO DAILY 30 tabs 2RF Refilled amlodipine 5 mg PO DAILY 30 tabs 0RF amlodipine 5 mg PO DAILY 30 tabs 2RF Discontinued escitalopram oxalate Discontinued Reason: MD Ordered 15 mg (1.5 x 10 mg) PO DAILY 30 days 45 tabs 0RF Charges/Coding Behavior Health Behavior Health EST Pt E/M: 56827 Est Pt Level IV
--- NOTE | 2025-03-17 11:05 | BH.SGPN.GN ---
Behaviors/Verbalizations/Mental Status: []Client alert and oriented, casually dressed and groomed. Eye contact good. Motor activity appropriate. Speech within normal limits. Affect constricted, mood depressed. Thoughts linear, logical, no signs of hallucinations or delusions. Client Response/Progress/Benefit: [] Pt receptive of session, engaged throughout AEB Pt actively listening and contributing to discussion as well as taking notes.? Pt participated in the experiential activity and did well to communicate ideas with peers and manage emotions. Pt attentive as group processed how the emotions and perspective of the group impacted the activity. Pt was highly encouraging during the activity which helped peers. Group worked together to identify different coping skills to help manage pitfalls. Pt identified pitfalls they struggle with dissociating, shutting down, and not trying due to negative thinking patterns. ?Pt plans to work on their pitfall by ?I don?t really know right now.? Benefited from identifying personal pitfalls and strategies to overcome these pitfalls. Pt will continue IOP tx to increase use of healthy coping skills, reframe distortions, and improve daily functioning. ??? Narrative Note: []
== END 2025-03-17 23:59 ==
LOC: BHIOP 08:07
PROVIDERS: PCP Nurse Practitioner Family; Referring Provider Internal Medicine; Visit Provider Internal Medicine
DX: F33.2 Major depressive disorder, recurrent severe without psychotic features (principal); F43.10 Post-traumatic stress disorder, unspecified
CPT/HCPCS: S9480; 90832; 90834; 90853